=== PATIENT | male | born 1960 | race Caucasian/White ===

== ENCOUNTER → 2016-04-30 | Outpatient (REF) | payer BC | LOC: M SFHCLERA 08:27 | PROVIDERS: ATTEND Physician Assistant | DX: I10 Essential (primary) hypertension (principal); E78.2 Mixed hyperlipidemia; Z12.5 Encounter for screening for malignant neoplasm of prostate ==

== ENCOUNTER → 2016-05-01 | Outpatient (REF) | payer BC ==
[2016-05-01 11:17] LABS: MEAN CORPUSCULAR HEMOGLOBIN 34.3 pg (27.0-33.0); MEAN CORPUSCULAR HGB CONC 36.3 g/dl (32.0-36.5); MEAN CORPUSCULAR VOLUME 94.5 fl (80.0-96.0); RED CELL DISTRIBUTION WIDTH 11.5 % (11.5-14.5); WHITE BLOOD COUNT 5.3 K/mm3 (4.0-10.0)
[2016-05-01 11:39] LABS: ALBUMIN 4.3 GM/DL (3.2-5.2); ALBUMIN/GLOBULIN RATIO 1.72 (1.00-1.93); ALKALINE PHOSPHATASE 74 U/L (45-117); ALT/SGPT 53 U/L (12-78); ANION GAP 9 MEQ/L (8-16); AST/SGOT 59 U/L (15-37); BILIRUBIN,TOTAL 0.8 MG/DL (0.2-1.0); BLOOD UREA NITROGEN 12 MG/DL (7-18); CALCIUM LEVEL 9.4 MG/DL (8.5-10.1); CARBON DIOXIDE LEVEL 27 MEQ/L (21-32); CHLORIDE LEVEL 103 MEQ/L (98-107); CHOLESTEROL LEVEL 156 MG/DL (<200); CREATININE FOR GFR 0.86 MG/DL (0.70-1.30); GLOMERULAR FILTRATION RATE > 60.0 (>56); GLUCOSE, FASTING 94 MG/DL (70-105); POTASSIUM SERUM 4.4 MEQ/L (3.5-5.1); SODIUM LEVEL 139 MEQ/L (136-145); TOTAL PROTEIN 6.8 GM/DL (6.4-8.2); TRIGLYCERIDES LEVEL 349 MG/DL (<150)
== END ==
LOC: M SFHCLERA 07:18
PROVIDERS: ATTEND Physician Assistant
DX: Z12.5 Encounter for screening for malignant neoplasm of prostate (principal); I10 Essential (primary) hypertension; E78.2 Mixed hyperlipidemia
CPT/HCPCS: 80053; 80061; 85027; G0103

== ENCOUNTER → 2016-10-28 | Outpatient (REF) | payer BC ==
[2016-10-28 13:09] LABS: ALBUMIN/GLOBULIN RATIO 1.54 (1.00-1.93); ALKALINE PHOSPHATASE 56 U/L (45-117); ALT/SGPT 35 U/L (12-78); ANION GAP 8 MEQ/L (8-16); AST/SGOT 21 U/L (15-37); BILIRUBIN,TOTAL 0.5 MG/DL (0.2-1.0); BLOOD UREA NITROGEN 8 MG/DL (7-18); CALCIUM LEVEL 9.1 MG/DL (8.5-10.1); CARBON DIOXIDE LEVEL 28 MEQ/L (21-32); CHLORIDE LEVEL 104 MEQ/L (98-107); CHOLESTEROL LEVEL 127 MG/DL (<200); CREATININE FOR GFR 1.02 MG/DL (0.70-1.30); GLOMERULAR FILTRATION RATE > 60.0 (>56); GLUCOSE, FASTING 87 MG/DL (70-105); POTASSIUM SERUM 4.4 MEQ/L (3.5-5.1); SODIUM LEVEL 140 MEQ/L (136-145); TOTAL PROTEIN 6.6 GM/DL (6.4-8.2); TRIGLYCERIDES LEVEL 225 MG/DL (<150)
== END ==
LOC: M SFHCLERA 07:24
PROVIDERS: ATTEND Physician Assistant
DX: E78.2 Mixed hyperlipidemia (principal); Z12.5 Encounter for screening for malignant neoplasm of prostate
CPT/HCPCS: 80053; 80061; G0103

== ENCOUNTER → 2017-04-30 | Outpatient (REF) | payer BC ==
[2017-04-30 11:47] LABS: HEMATOCRIT 42.2 % (42.0-52.0); HEMOGLOBIN 14.9 g/dl (14.0-18.0); MEAN CORPUSCULAR HGB CONC 35.3 g/dl (32.0-36.5); MEAN CORPUSCULAR VOLUME 93.6 fl (80.0-96.0); PLATELET COUNT, AUTOMATED 284 10^3/uL (150-450); RED BLOOD COUNT 4.51 10^6/uL (4.30-6.10); RED CELL DISTRIBUTION WIDTH 11.8 % (11.5-14.5); WHITE BLOOD COUNT 5.8 10^3/uL (4.0-10.0)
[2017-04-30 12:04] LABS: ALBUMIN 4.3 GM/DL (3.2-5.2); ALBUMIN/GLOBULIN RATIO 1.54 (1.00-1.93); ALKALINE PHOSPHATASE 59 U/L (45-117); ALT/SGPT 42 U/L (12-78); ANION GAP 9 MEQ/L (8-16); AST/SGOT 37 U/L (7-37); BILIRUBIN,TOTAL 0.6 MG/DL (0.2-1.0); BLOOD UREA NITROGEN 13 MG/DL (7-18); CALCIUM LEVEL 9.3 MG/DL (8.5-10.1); CARBON DIOXIDE LEVEL 28 MEQ/L (21-32); CHLORIDE LEVEL 101 MEQ/L (98-107); CHOLESTEROL LEVEL 177 MG/DL (<200); CHOLESTEROL RISK RATIO 2.901 (<5); CREATININE FOR GFR 0.94 MG/DL (0.70-1.30); GLOMERULAR FILTRATION RATE > 60.0 (>56); GLUCOSE, FASTING 85 MG/DL (70-105); HDL CHOLESTEROL 61 MG/DL (>40); LDL CHOLESTEROL 63.8 MG/DL (<100); NON-HDL-C 116 MG/DL; POTASSIUM SERUM 4.7 MEQ/L (3.5-5.1); SODIUM LEVEL 138 MEQ/L (136-145); TOTAL PROTEIN 7.1 GM/DL (6.4-8.2); TRIGLYCERIDES LEVEL 261 MG/DL (<150)
== END ==
LOC: M SFHCLERA 07:43
DX: I10 Essential (primary) hypertension (principal); E78.2 Mixed hyperlipidemia
CPT/HCPCS: 80053

== ENCOUNTER → 2017-05-28 | Outpatient (CLI) | payer BC | LOC: M RAD 10:11 | DX: M25.559 Pain in unspecified hip (principal) ==

== ENCOUNTER → 2017-07-01 | Outpatient (REF) | payer BC ==
[2017-07-01 17:21] LABS: ETHYL ALCOHOL (ETHANOL) < 0.003 % (0.000-0.010)
== END ==
LOC: M SFHCLERA 10:52
DX: F10.20 Alcohol dependence, uncomplicated (principal)
CPT/HCPCS: G0480

== ENCOUNTER → 2017-07-08 | Outpatient (REF) | payer BC ==
[2017-07-08 17:35] LABS: ETHYL ALCOHOL (ETHANOL) 0.003 % (0.000-0.010)
== END ==
LOC: M SFHCLERA 11:05
DX: F10.20 Alcohol dependence, uncomplicated (principal)
CPT/HCPCS: G0480

== ENCOUNTER → 2017-08-01 | Outpatient (CLI) | payer BC | LOC: M RAD 08:49 | DX: M25.551 Pain in right hip (principal); M70.61 Trochanteric bursitis, right hip | CPT/HCPCS: 73721 ==

== ENCOUNTER → 2017-10-06 | Outpatient (CLI) | payer BC ==
[2017-10-06 12:10] LABS: BLOOD UREA NITROGEN 9 MG/DL (7-18)
[2017-10-06 12:10] LABS: CREATININE FOR GFR 0.89 MG/DL (0.70-1.30); GLOMERULAR FILTRATION RATE > 60.0 (>56)
== END ==
LOC: M LRY 07:44
DX: M54.5 Low back pain (principal); M54.16 Radiculopathy, lumbar region; M54.17 Radiculopathy, lumbosacral region
CPT/HCPCS: 82565

== ENCOUNTER → 2019-02-10 | Outpatient (REF) | payer BC ==
[2019-02-10 18:10] LABS: INR 0.9; PROTHROMBIN TIME 11.9 SECONDS (11.8-14.0)
== END ==
LOC: M LAB REF 17:22
PROVIDERS: ATTEND Internal Medicine
DX: F10.20 Alcohol dependence, uncomplicated (principal); R94.5 Abnormal results of liver function studies

== ENCOUNTER → 2019-08-10 | Outpatient (REF) | payer BC ==
[2019-08-10 18:01] LABS: ANISOCYTOSIS 1+; ATYPICAL LYMPH 4 % (0-5); BASOPHILS 4 % (0-1); EOSINOPHILS 3 % (0-3); HYPOCHROMASIA 1+; LYMPHOCYTES 11 % (16-44); METAMYELOCYTES 1 % (0-0); MONOCYTES 21 % (0-5); MYELOCYTES 1 % (0-0); NEUTROPHILS 55 % (28-66)
[2019-08-10 18:02] LABS: TEAR DROP CELLS 1+
[2019-08-10 18:03] LABS: PLATELET ESTIMATE NORMAL (NORMAL)
== END ==
LOC: M LAB REF 16:22
PROVIDERS: ATTEND Internal Medicine
DX: D72.9 Disorder of white blood cells, unspecified (principal)

== ENCOUNTER → 2019-08-15 | Outpatient (REF) | payer BC ==
[2019-08-15 13:36] LABS: FOLATE 21.7 NG/ML
== END ==
LOC: M LAB REF 12:12
PROVIDERS: ATTEND Internal Medicine
DX: D72.9 Disorder of white blood cells, unspecified (principal)

== ENCOUNTER → 2020-01-31 | Outpatient (REF) | payer BC | LOC: M LAB REF 12:27 | PROVIDERS: ATTEND Internal Medicine | DX: R79.89 Other specified abnormal findings of blood chemistry (principal) ==

== ENCOUNTER → 2020-02-08 | Outpatient (REF) | payer BC ==
[2020-02-08 17:45] LABS: FERRITIN 969 NG/ML (26-388)
[2020-02-08 18:06] LABS: HEPATITIS B SURFACE ANTIGEN NEGATIVE (NEGATIVE)
[2020-02-08 18:32] LABS: HEPATITIS C VIRUS ABY INDEX 0.1 INDEX (<0.8)
[2020-02-08 18:33] LABS: HEPATITIS B CORE ANTIBODY IGM NEGATIVE (NEGATIVE)
[2020-02-08 18:36] LABS: HEPATITIS A ANTIBODY IGM NEGATIVE (NEGATIVE)
[2020-02-10 13:07] LABS: ANTINUCLEAR ANTIBODIES DIRECT Negative (Negative); CERULOPLASMIN 18.2 mg/dL (16.0-31.0)
[2020-02-10 14:16] LABS: IRON (FE) 119 UG/DL (65-175); PERCENT SATURATION 29.8 % (19.7-50.0); TOTAL IRON BINDING CAPACITY 399 UG/DL (250-450)
== END ==
LOC: M LAB REF 16:44
PROVIDERS: ATTEND Internal Medicine
DX: K70.0 Alcoholic fatty liver (principal)

== ENCOUNTER → 2020-09-14 | Outpatient (REF) | payer BC ==
[2020-09-14 17:39] LABS: APPEARANCE, URINE CLEAR (CLEAR); BACTERIA, URINE AUTO NEGATIVE (NEGATIVE); BILIRUBIN, URINE AUTO NEGATIVE (NEGATIVE); BLOOD, URINE BLOOD NEGATIVE (NEGATIVE); COLOR, URINE STRAW (YELLOW); GLUCOSE, URINE (UA) AUTO NEGATIVE (NEGATIVE); KETONE, URINE AUTO NEGATIVE (NEGATIVE); LEUKOCYTE ESTERASE, URINE AUTO NEGATIVE (NEGATIVE); NITRITE, URINE AUTO NEGATIVE (NEGATIVE); PROTEIN, URINE AUTO NEGATIVE (NEGATIVE); RBC, URINE AUTO 0 /HPF (0-3); SPECIFIC GRAVITY URINE AUTO 1.004 (1.002-1.035); SQUAMOUS EPITHELIAL CELL UR AU 0 /HPF (0-6); UROBILINOGEN, URINE AUTO 0.2 mg/dL (0.0-2.0); WBC, URINE AUTO 0 /HPF (0-3)
[2020-09-14 17:58] LABS: ATYPICAL LYMPH 3 % (0-5); BASOPHILS 1 % (0-1); EOSINOPHILS 2 % (0-3); LYMPHOCYTES 14 % (16-44); MONOCYTES 6 % (0-5); NEUTROPHILS 70 % (28-66)
[2020-09-14 17:59] LABS: PLATELET ESTIMATE NORMAL (NORMAL)
== END ==
LOC: M LAB REF 16:21
PROVIDERS: ATTEND Internal Medicine
DX: D72.9 Disorder of white blood cells, unspecified (principal)

== ENCOUNTER → 2020-10-02 | Outpatient (REF) | payer BC ==
[2020-10-02 17:54] LABS: BASOPHILS 3 % (0-1); EOSINOPHILS 4 % (0-3); LYMPHOCYTES 13 % (16-44); MONOCYTES 4 % (0-5); NEUTROPHILS 76 % (28-66); PLATELET ESTIMATE NORMAL (NORMAL)
== END ==
LOC: M LAB REF 16:59
PROVIDERS: ATTEND Internal Medicine
DX: D72.89 Other specified disorders of white blood cells (principal)

== ENCOUNTER → 2021-02-26 | Outpatient (REF) | payer BC | LOC: M LAB REF 16:20 | PROVIDERS: ATTEND Physician Assistant Medical | DX: N39.0 Urinary tract infection, site not specified (principal) ==

== ENCOUNTER → 2021-10-07 | Outpatient (REF) | payer BC, OTHER ==
[~2021-10-07] MED LIST: ACET500T15 PO; ALEV220T22 PO; AMLO1TAB24 PO; DULO1CAP6 PO; FENO160T10 PO; FEXO-112 PO; FOLI1TAB11 PO; GABA-282 PO; KEPP250T5 PO; LISI40TA4 PO; MOME50SP2 NARES; MONT10TA97 PO; OMEP40CA5 PO; OXYB10TA23 PO; TAMS1CAP17 PO; THIA100TA PO; TIZA10TA PO; VITMTA PO
[2021-10-07 14:41] LABS: ATYPICAL LYMPH 3 % (0-5); BASOPHILS 1 % (0-1); LYMPHOCYTES 8 % (16-44); MONOCYTES 17 % (0-5); NEUTROPHILS 70 % (28-66)
[2021-10-07 14:42] LABS: BURR CELLS 1+; PLATELET ESTIMATE NORMAL (NORMAL)
== END ==
LOC: M LAB REF 13:09
PROVIDERS: ATTEND Internal Medicine
DX: D72.9 Disorder of white blood cells, unspecified (principal)

== ENCOUNTER 2021-10-08 09:58 | Inpatient (IN) | payer BC, OTHER ==
[~2021-10-08] VITALS: Ht 167.6 cm; Wt 73.6 kg
[~2021-10-08 09:58] MED LIST changes: -ACET500T15 PO; -ALEV220T22 PO; -AMLO1TAB24 PO; -DULO1CAP6 PO; -FENO160T10 PO; -FEXO-112 PO; -FOLI1TAB11 PO; +FOLIC ACID 1 MG TAB PO SCH; -GABA-282 PO; -KEPP250T5 PO; -LISI40TA4 PO; -MOME50SP2 NARES; -MONT10TA97 PO; +MULTIVITAMINS/MINERALS THERAP 1 TAB PO SCH; -OMEP40CA5 PO; +OXAZEPAM 10MG CAP PO SCH; -OXYB10TA23 PO; -TAMS1CAP17 PO; -THIA100TA PO; +THIAMINE 100 MG TAB PO SCH; -TIZA10TA PO; -VITMTA PO
[2021-10-08] MEDS ORDERED: LORazepam 2 MG TAB PO PRN ×2 (10:20→13:40)
[2021-10-08 10:33] LABS: VENOUS BASE EXCESS -2.4 (-2.0-2.0); VENOUS HCO3 23.1 MEQ/L (23.0-27.0); VENOUS PARTIAL PRESSURE CO2 42.7 mmHg (38.0-50.0); VENOUS PARTIAL PRESSURE O2 27.1 mmHg (30.0-50.0); VENOUS PH 7.351 UNITS (7.330-7.430); VENOUS STANDARD HCO3 21.3 MEQ/L; VENOUS TOTAL CO2 24.4 MEQ/L (24.0-28.0)
[2021-10-08] MEDS ORDERED: NS 1,000 ML IV SCH (10:35)
[2021-10-08 10:42] LABS: BASO % 0.5 % (0.0-1.0); EOS % 0.5 % (0.0-3.0); HEMATOCRIT 34.6 % (42.0-52.0); LYMPH # 0.4 10^3/uL (1.5-5.0); LYMPH % 4.9 % (24.0-44.0); MEAN CORPUSCULAR HEMOGLOBIN 32.9 pg (27.0-33.0); MEAN CORPUSCULAR HGB CONC 34.7 g/dl (32.0-36.5); MEAN CORPUSCULAR VOLUME 94.8 fl (80.0-96.0); MONO # 1.3 10^3/uL (0.0-0.8); MONO % 15.3 % (2.0-8.0); NEUTROPHILS # 6.8 10^3/uL (1.5-8.5); NEUTROPHILS % 77.9 % (36.0-66.0); PLATELET COUNT, AUTOMATED 178 10^3/uL (150-450); RED BLOOD COUNT 3.65 10^6/uL (4.30-6.10); WHITE BLOOD COUNT 8.7 10^3/uL (4.0-10.0)
[2021-10-08 11:13] LABS: RSV AMPLIFICATION NEGATIVE (NEGATIVE)
[2021-10-08 11:20] LABS: AMPHETAMINES LEVEL URINE NEGATIVE (NEGATIVE); BARBITURATES URINE NEGATIVE (NEGATIVE); BENZODIAZEPINES URINE NEGATIVE (NEGATIVE); CANNABINOIDS URINE NEGATIVE (NEGATIVE); COCAINE METABOLITE URINE NEGATIVE (NEGATIVE); METHADONE URINE NEGATIVE (NEGATIVE); OPIATES URINE NEGATIVE (NEGATIVE); PHENCYCLIDINE URINE NEGATIVE (NEGATIVE)
[2021-10-08 11:33] LABS: OSMOLALITY SERUM 323 MOSM/KG (275-295)
[2021-10-08 11:38] LABS: ALBUMIN 3.8 GM/DL (3.2-5.2); ALT/SGPT 35 U/L (12-78); BILIRUBIN,DIRECT 0.3 MG/DL (0.0-0.2); BILIRUBIN,TOTAL 0.7 MG/DL (0.2-1.0); BLOOD UREA NITROGEN 5 MG/DL (7-18); CARBON DIOXIDE LEVEL 22 MEQ/L (21-32); CHLORIDE LEVEL 89 MEQ/L (98-107); CREATININE FOR GFR 0.69 MG/DL (0.70-1.30); ETHYL ALCOHOL (ETHANOL) 0.304 % (0.000-0.010); GLOMERULAR FILTRATION RATE > 60.0 (>56); GLUCOSE, FASTING 89 MG/DL (70-100); MAGNESIUM LEVEL 2.4 MG/DL (1.8-2.4); PHOSPHORUS LEVEL 3.5 MG/DL (2.5-4.9); POTASSIUM SERUM 4.7 MEQ/L (3.5-5.1); SALICYLATE LEVEL < 1.7 MG/DL (5.0-30.0); SODIUM LEVEL 122 MEQ/L (136-145); TOTAL PROTEIN 6.7 GM/DL (6.4-8.2)
[2021-10-08 11:52] LABS: INR 1.01; PROTHROMBIN TIME 13.7 SECONDS (12.7-14.5)
[2021-10-08 11:53] LABS: CREATININE,RANDOM URINE 15.2 MG/DL
[2021-10-08] MEDS ORDERED: SODIUM CHLORIDE 1 GM TAB PO SCH (12:30)
[2021-10-08] MEDS ORDERED: DULO1CAP6 PO (13:49)
[2021-10-08] MEDS ORDERED: AMLO1TAB24 PO (13:49)
[2021-10-08] MEDS ORDERED: LISI40TA4 PO (13:49)
[2021-10-08] MEDS ORDERED: FENO160T10 PO (13:49)
[2021-10-08] MEDS ORDERED: GABA-282 PO ×2 (13:49)
[2021-10-08] MEDS ORDERED: TIZA10TA PO (13:49)
[2021-10-08] MEDS ORDERED: ACET500T15 PO (13:49)
[2021-10-08] MEDS ORDERED: OMEP40CA5 PO (13:49)
[2021-10-08] MEDS ORDERED: ALEV220T22 PO (13:49)
[2021-10-08] MEDS ORDERED: MONT10TA97 PO (13:49)
[2021-10-08] MEDS ORDERED: TAMS1CAP17 PO (13:49)
[2021-10-08] MEDS ORDERED: FEXO-112 PO (13:49)
[2021-10-08] MEDS ORDERED: VITMTA PO (13:49)
[2021-10-08] MEDS ORDERED: OXYB10TA23 PO (13:49)
[2021-10-08] MEDS ORDERED: MOME50SP2 NARES (13:49)
[2021-10-08] MEDS ORDERED: HOME MED LIST COMPLETE! XX SCH (13:55)
[2021-10-08 14:09] LABS: ACETAMINOPHEN LEVEL < 2.0 UG/ML (0.0-30.0)
[2021-10-08] MEDS ORDERED: OXAZEPAM 15MG CAP PO ONE (14:30)
[2021-10-08] MEDS ORDERED: TOLVAPTAN 7.5 MG HALF-TAB PO ONE (15:00)
[2021-10-08 17:00] LABS: BLOOD UREA NITROGEN 4 MG/DL (7-18); CALCIUM LEVEL 8.2 MG/DL (8.5-10.1); CARBON DIOXIDE LEVEL 21 MEQ/L (21-32); CHLORIDE LEVEL 93 MEQ/L (98-107); CREATININE FOR GFR 0.66 MG/DL (0.70-1.30); GLOMERULAR FILTRATION RATE > 60.0 (>56); GLUCOSE, FASTING 86 MG/DL (70-100); POTASSIUM SERUM 4.2 MEQ/L (3.5-5.1); SODIUM LEVEL 129 MEQ/L (136-145)
[2021-10-08 17:40] VITALS: BP 155/72
[2021-10-08 17:45] VITALS: BP 155/72
[2021-10-08] MEDS ORDERED: IBUPROFEN 400MG TAB PO ONE (18:25)
[2021-10-08 20:00] VITALS: BP 132/67
[2021-10-08] MEDS: DULoxetine 30MG CAPSULE (CYMBALTA) PO SCH (20:34)
[2021-10-08] MEDS: oxyBUTYnin *DITROPAN XL* 5 MG TABCR PO SCH (20:35)
[2021-10-08] MEDS: THIAMINE 100 MG TAB PO SCH (20:35)
[2021-10-08] MEDS: ACETAMINOPHEN 500 MG TAB PO SCH (20:35)
[2021-10-08] MEDS: GABAPENTIN 300 MG CAP PO SCH (20:35)
[2021-10-08 20:54] LABS: BILIRUBIN, URINE MANUAL NEGATIVE (NEGATIVE); GLUCOSE, URINE (UA) MANUAL NEGATIVE (NEGATIVE); KETONE, URINE MANUAL NEGATIVE (NEGATIVE); UROBILINOGEN, URINE MANUAL NORMAL (NORMAL)
[2021-10-08] MEDS ORDERED: tiZANidine 4 MG TAB PO SCH (21:00)
[2021-10-08 21:03] LABS: BACTERIA, URINE LARGE AMOUNT; MUCUS, URINE SMALL AMOUNT (NEGATIVE); SQUAMOUS EPITHELIAL CELL URINE SMALL AMOUNT /hpf (SMALL AMT)
[2021-10-08 21:04] LABS: HYALINE CAST, URINE NONE SEEN /lpf (0-1)
[2021-10-08 22:39] LABS: BLOOD UREA NITROGEN 5 MG/DL (7-18); CALCIUM LEVEL 8.5 MG/DL (8.5-10.1); CARBON DIOXIDE LEVEL 21 MEQ/L (21-32); CHLORIDE LEVEL 100 MEQ/L (98-107); CREATININE FOR GFR 0.72 MG/DL (0.70-1.30); GLOMERULAR FILTRATION RATE > 60.0 (>56); GLUCOSE, FASTING 107 MG/DL (70-100); POTASSIUM SERUM 3.7 MEQ/L (3.5-5.1); SODIUM LEVEL 133 MEQ/L (136-145)
[2021-10-09] VITALS (10 sets, daily range): BP systolic 125–157; BP diastolic 6–89
[2021-10-09] MEDS: OXAZEPAM 10MG CAP PO SCH ×3 (00:22→12:24)
[2021-10-09 05:00] LABS: BLOOD UREA NITROGEN 6 MG/DL (7-18); CALCIUM LEVEL 9.4 MG/DL (8.5-10.1); CARBON DIOXIDE LEVEL 22 MEQ/L (21-32); CHLORIDE LEVEL 102 MEQ/L (98-107); CREATININE FOR GFR 0.71 MG/DL (0.70-1.30); GLOMERULAR FILTRATION RATE > 60.0 (>56); GLUCOSE, FASTING 83 MG/DL (70-100); POTASSIUM SERUM 4.3 MEQ/L (3.5-5.1); SODIUM LEVEL 136 MEQ/L (136-145)
[2021-10-09 05:05] LABS: ALBUMIN 3.3 GM/DL (3.2-5.2); BILIRUBIN,DIRECT 0.3 MG/DL (0.0-0.2); BILIRUBIN,TOTAL 0.6 MG/DL (0.2-1.0); C REACTIVE PROTEIN QUANTITATIV 10.5 MG/DL (0.00-0.30); TOTAL PROTEIN 6.4 GM/DL (6.4-8.2)
[2021-10-09] MEDS ORDERED: D5W 1,000 ML IV ONE (07:20)
[2021-10-09] MEDS: MONTELUKAST 10 MG TAB PO SCH (08:14)
[2021-10-09] MEDS: lisinopriL 40MG TAB PO SCH (08:14)
[2021-10-09] MEDS: DULoxetine 30MG CAPSULE (CYMBALTA) PO SCH ×2 (08:14→20:00)
[2021-10-09] MEDS: FOLIC ACID 1 MG TAB PO SCH (08:14)
[2021-10-09] MEDS: THIAMINE 100 MG TAB PO SCH ×2 (08:14→20:01)
[2021-10-09] MEDS: GABAPENTIN 300 MG CAP PO SCH ×2 (08:14→20:00)
[2021-10-09] MEDS: TAMSULOSIN 0.4 MG CAP PO SCH (08:15)
[2021-10-09] MEDS: MULTIVITAMINS/MINERALS THERAP 1 TAB PO SCH (08:15)
[2021-10-09] MEDS ORDERED: amLODIPine 5 MG TAB PO SCH (09:00)
[2021-10-09 09:51] LABS: BLOOD UREA NITROGEN 6 MG/DL (7-18); CALCIUM LEVEL 9.3 MG/DL (8.5-10.1); CARBON DIOXIDE LEVEL 26 MEQ/L (21-32); CHLORIDE LEVEL 97 MEQ/L (98-107); CREATININE FOR GFR 0.86 MG/DL (0.70-1.30); GLOMERULAR FILTRATION RATE > 60.0 (>56); GLUCOSE, FASTING 151 MG/DL (70-100); POTASSIUM SERUM 3.5 MEQ/L (3.5-5.1); SODIUM LEVEL 133 MEQ/L (136-145)
[2021-10-09] MEDS ORDERED: ALPRAZolam 0.5 MG TAB PO ONE (10:45)
[2021-10-09 13:27] LABS: BLOOD UREA NITROGEN 6 MG/DL (7-18); CALCIUM LEVEL 9.5 MG/DL (8.5-10.1); CARBON DIOXIDE LEVEL 25 MEQ/L (21-32); CHLORIDE LEVEL 98 MEQ/L (98-107); CREATININE FOR GFR 0.75 MG/DL (0.70-1.30); GLOMERULAR FILTRATION RATE > 60.0 (>56); GLUCOSE, FASTING 145 MG/DL (70-100); POTASSIUM SERUM 4.3 MEQ/L (3.5-5.1); SODIUM LEVEL 132 MEQ/L (136-145)
[2021-10-09 17:20] LABS: BLOOD UREA NITROGEN 5 MG/DL (7-18); CALCIUM LEVEL 9.7 MG/DL (8.5-10.1); CARBON DIOXIDE LEVEL 25 MEQ/L (21-32); CHLORIDE LEVEL 97 MEQ/L (98-107); CREATININE FOR GFR 0.76 MG/DL (0.70-1.30); GLOMERULAR FILTRATION RATE > 60.0 (>56); GLUCOSE, FASTING 129 MG/DL (70-100); POTASSIUM SERUM 3.5 MEQ/L (3.5-5.1); SODIUM LEVEL 132 MEQ/L (136-145)
[2021-10-09] MEDS ORDERED: cloNIDine 0.1MG TABLET PO SCH (17:40)
[2021-10-09] MEDS: OXAZEPAM 15MG CAP PO SCH (17:56)
[2021-10-09] MEDS ORDERED: LORazepam 2 MG/ML VIAL IV ONE (18:30)
[2021-10-09] MEDS ORDERED: TOLVAPTAN 7.5 MG HALF-TAB PO ONE (19:00)
[2021-10-09] MEDS: oxyBUTYnin *DITROPAN XL* 5 MG TABCR PO SCH (20:00)
[2021-10-09] MEDS: amLODIPine 5 MG TAB PO SCH (20:01)
[2021-10-09] MEDS: ACETAMINOPHEN 500 MG TAB PO SCH (20:01)
[2021-10-09] MEDS ORDERED: diazePAM 10MG/2ML SYRINGE (J3360 PER 5MG) IV ONE (20:45)
[2021-10-09] MEDS ORDERED: LORazepam 2 MG TAB XX PRN (20:45)
[2021-10-09] MEDS ORDERED: LORazepam 2 MG/ML VIAL IV PRN (21:20)
[2021-10-09 21:30] LABS: BLOOD UREA NITROGEN 6 MG/DL (7-18); CALCIUM LEVEL 9.8 MG/DL (8.5-10.1); CARBON DIOXIDE LEVEL 25 MEQ/L (21-32); CHLORIDE LEVEL 99 MEQ/L (98-107); CREATININE FOR GFR 0.74 MG/DL (0.70-1.30); GLOMERULAR FILTRATION RATE > 60.0 (>56); GLUCOSE, FASTING 106 MG/DL (70-100); POTASSIUM SERUM 3.9 MEQ/L (3.5-5.1); SODIUM LEVEL 134 MEQ/L (136-145)
[2021-10-09] MEDS: SODIUM CHLORIDE 1 GM TAB PO SCH (21:47)
[2021-10-10] VITALS (9 sets, daily range): BP systolic 130–143; BP diastolic 82–90
[2021-10-10] MEDS: OXAZEPAM 15MG CAP PO SCH ×4 (00:06→17:22)
[2021-10-10 01:45] LABS: BLOOD UREA NITROGEN 7 MG/DL (7-18); CALCIUM LEVEL 9.2 MG/DL (8.5-10.1); CARBON DIOXIDE LEVEL 24 MEQ/L (21-32); CHLORIDE LEVEL 100 MEQ/L (98-107); CREATININE FOR GFR 0.75 MG/DL (0.70-1.30); GLOMERULAR FILTRATION RATE > 60.0 (>56); GLUCOSE, FASTING 100 MG/DL (70-100); POTASSIUM SERUM 3.8 MEQ/L (3.5-5.1); SODIUM LEVEL 133 MEQ/L (136-145)
[2021-10-10 05:59] LABS: BLOOD UREA NITROGEN 7 MG/DL (7-18); CALCIUM LEVEL 9.4 MG/DL (8.5-10.1); CARBON DIOXIDE LEVEL 24 MEQ/L (21-32); CHLORIDE LEVEL 101 MEQ/L (98-107); CREATININE FOR GFR 0.81 MG/DL (0.70-1.30); GLOMERULAR FILTRATION RATE > 60.0 (>56); GLUCOSE, FASTING 93 MG/DL (70-100); POTASSIUM SERUM 3.7 MEQ/L (3.5-5.1); SODIUM LEVEL 134 MEQ/L (136-145)
[2021-10-10] MEDS: DULoxetine 30MG CAPSULE (CYMBALTA) PO SCH ×2 (09:55→19:46)
[2021-10-10] MEDS: FOLIC ACID 1 MG TAB PO SCH (09:55)
[2021-10-10] MEDS: MONTELUKAST 10 MG TAB PO SCH (09:55)
[2021-10-10] MEDS: SODIUM CHLORIDE 1 GM TAB PO SCH ×3 (09:55→17:22)
[2021-10-10] MEDS: TAMSULOSIN 0.4 MG CAP PO SCH (09:55)
[2021-10-10] MEDS: MULTIVITAMINS/MINERALS THERAP 1 TAB PO SCH (09:55)
[2021-10-10] MEDS: lisinopriL 40MG TAB PO SCH (09:55)
[2021-10-10] MEDS: GABAPENTIN 300 MG CAP PO SCH ×2 (09:56→19:47)
[2021-10-10] MEDS: amLODIPine 5 MG TAB PO SCH ×2 (09:56→19:48)
[2021-10-10] MEDS: THIAMINE 100 MG TAB PO SCH ×2 (09:56→19:47)
[2021-10-10 10:11] LABS: BLOOD UREA NITROGEN 7 MG/DL (7-18); CALCIUM LEVEL 9.8 MG/DL (8.5-10.1); CARBON DIOXIDE LEVEL 24 MEQ/L (21-32); CHLORIDE LEVEL 100 MEQ/L (98-107); CREATININE FOR GFR 0.77 MG/DL (0.70-1.30); GLOMERULAR FILTRATION RATE > 60.0 (>56); GLUCOSE, FASTING 86 MG/DL (70-100); POTASSIUM SERUM 4.2 MEQ/L (3.5-5.1); SODIUM LEVEL 134 MEQ/L (136-145)
[2021-10-10] MEDS ORDERED: TOLVAPTAN 7.5 MG HALF-TAB PO ONE (11:00)
[2021-10-10] MEDS: AUGMENTIN 875 MG TAB PO SCH ×2 (12:25→19:46)
[2021-10-10] MEDS: LORazepam 2 MG TAB PO PRN ×2 (15:37→23:15)
[2021-10-10] MEDS: oxyBUTYnin *DITROPAN XL* 5 MG TABCR PO SCH (19:47)
[2021-10-10] MEDS: ACETAMINOPHEN 500 MG TAB PO SCH (19:49)
[2021-10-11] VITALS (10 sets, daily range): BP systolic 98–140; BP diastolic 72–86
[2021-10-11] MEDS: OXAZEPAM 15MG CAP PO SCH ×3 (00:13→11:37)
[2021-10-11 06:58] LABS: BASO # 0.1 10^3/uL (0.0-0.2); BASO % 0.5 % (0.0-1.0); EOS # 0.1 10^3/uL (0.0-0.5); EOS % 1.3 % (0.0-3.0); HEMOGLOBIN 12.5 g/dl (13.5-17.5); LYMPH # 0.4 10^3/uL (1.5-5.0); LYMPH % 4.8 % (24.0-44.0); MEAN CORPUSCULAR HEMOGLOBIN 33.6 pg (27.0-33.0); MEAN CORPUSCULAR HGB CONC 34.7 g/dl (32.0-36.5); MEAN CORPUSCULAR VOLUME 96.8 fl (80.0-96.0); MONO % 18.2 % (2.0-8.0); NEUTROPHILS # 6.8 10^3/uL (1.5-8.5); NEUTROPHILS % 74.4 % (36.0-66.0); PLATELET COUNT, AUTOMATED 204 10^3/uL (150-450); RED BLOOD COUNT 3.72 10^6/uL (4.30-6.10); WHITE BLOOD COUNT 9.2 10^3/uL (4.0-10.0)
[2021-10-11 07:24] LABS: BLOOD UREA NITROGEN 6 MG/DL (7-18); CALCIUM LEVEL 9.3 MG/DL (8.5-10.1); CARBON DIOXIDE LEVEL 23 MEQ/L (21-32); CHLORIDE LEVEL 101 MEQ/L (98-107); CREATININE FOR GFR 0.91 MG/DL (0.70-1.30); GLOMERULAR FILTRATION RATE > 60.0 (>56); GLUCOSE, FASTING 99 MG/DL (70-100); POTASSIUM SERUM 3.6 MEQ/L (3.5-5.1); SODIUM LEVEL 133 MEQ/L (136-145)
[2021-10-11 07:26] LABS: MONO # 1.7 10^3/uL (0.0-0.8)
[2021-10-11] MEDS: FOLIC ACID 1 MG TAB PO SCH (08:09)
[2021-10-11] MEDS: AUGMENTIN 875 MG TAB PO SCH (08:09)
[2021-10-11] MEDS: MULTIVITAMINS/MINERALS THERAP 1 TAB PO SCH (08:09)
[2021-10-11] MEDS: GABAPENTIN 300 MG CAP PO SCH (08:09)
[2021-10-11] MEDS: MONTELUKAST 10 MG TAB PO SCH (08:09)
[2021-10-11] MEDS: SODIUM CHLORIDE 1 GM TAB PO SCH ×2 (08:09→11:36)
[2021-10-11] MEDS: lisinopriL 40MG TAB PO SCH (08:10)
[2021-10-11] MEDS: amLODIPine 5 MG TAB PO SCH (08:10)
[2021-10-11] MEDS: TAMSULOSIN 0.4 MG CAP PO SCH (08:10)
[2021-10-11] MEDS ORDERED: DULoxetine 30MG CAPSULE (CYMBALTA) PO SCH ×2 (09:00→21:00)
[2021-10-11] MEDS: TOLVAPTAN 15 MG TAB (SAMSCA) PO ONE ×2 (12:14→13:32)
[2021-10-11] MEDS ORDERED: NS 1,000 ML IV ONE (14:45)
[2021-10-11] MEDS ORDERED: DEXTROSE 50% 50 ML SYRINGE IV PRN (14:45)
[2021-10-11] MEDS ORDERED: GLUCAGON INJ 1MG VIAL SC PRN (14:45)
[2021-10-11] MEDS ORDERED: GLUCOSE 4GM CHEW TABLET PO PRN (14:45)
[2021-10-11] MEDS: diazePAM 10MG/2ML SYRINGE (J3360 PER 5MG) IV SCH ×2 (14:52→20:18)
[2021-10-11] MEDS: levETIRAcetam INJection 1,000 MG in D5W 100 ML IV SCH (15:00)
[2021-10-11] MEDS: NS 1,000 ML IV SCH ×2 (16:42→21:20)
[2021-10-11] MEDS ORDERED: NALTREXONE 50 MG TAB PO SCH (21:00)
[2021-10-12] VITALS (9 sets, daily range): BP systolic 124–134; BP diastolic 78–98
[2021-10-12] MEDS: diazePAM 10MG/2ML SYRINGE (J3360 PER 5MG) IV SCH (02:55)
[2021-10-12] MEDS ORDERED: diazePAM 10MG/2ML SYRINGE (J3360 PER 5MG) IV ONE (04:10)
[2021-10-12] MEDS: levETIRAcetam INJection 1,000 MG in D5W 100 ML IV SCH (04:14)
[2021-10-12] MEDS: NS 1,000 ML IV SCH (07:34)
[2021-10-12 08:20] LABS: BASO # 0.1 10^3/uL (0.0-0.2); BASO % 0.8 % (0.0-1.0); EOS # 0.1 10^3/uL (0.0-0.5); EOS % 0.8 % (0.0-3.0); HEMATOCRIT 36.2 % (42.0-52.0); HEMOGLOBIN 12.3 g/dl (13.5-17.5); LYMPH # 0.5 10^3/uL (1.5-5.0); LYMPH % 6.7 % (24.0-44.0); MEAN CORPUSCULAR HEMOGLOBIN 32.5 pg (27.0-33.0); MEAN CORPUSCULAR VOLUME 95.5 fl (80.0-96.0); MONO # 1.4 10^3/uL (0.0-0.8); MONO % 18.7 % (2.0-8.0); NEUTROPHILS # 5.4 10^3/uL (1.5-8.5); NEUTROPHILS % 71.7 % (36.0-66.0); PLATELET COUNT, AUTOMATED 230 10^3/uL (150-450); RED BLOOD COUNT 3.79 10^6/uL (4.30-6.10); WHITE BLOOD COUNT 7.5 10^3/uL (4.0-10.0)
[2021-10-12] MEDS: THIAMINE 100 MG TAB PO SCH ×2 (08:24→21:11)
[2021-10-12] MEDS: MULTIVITAMINS/MINERALS THERAP 1 TAB PO SCH (08:24)
[2021-10-12] MEDS: diazePAM 5MG TABLET PO SCH ×3 (08:24→18:19)
[2021-10-12] MEDS: FOLIC ACID 1 MG TAB PO SCH (08:24)
[2021-10-12 08:46] LABS: ALBUMIN 3.1 GM/DL (3.2-5.2); ALT/SGPT 25 U/L (12-78); BILIRUBIN,TOTAL 0.6 MG/DL (0.2-1.0); BLOOD UREA NITROGEN 7 MG/DL (7-18); CALCIUM LEVEL 9.3 MG/DL (8.5-10.1); CARBON DIOXIDE LEVEL 18 MEQ/L (21-32); CHLORIDE LEVEL 118 MEQ/L (98-107); CREATININE FOR GFR 0.75 MG/DL (0.70-1.30); GLOMERULAR FILTRATION RATE > 60.0 (>56); GLUCOSE, FASTING 103 MG/DL (70-100); POTASSIUM SERUM 3.6 MEQ/L (3.5-5.1); SODIUM LEVEL 147 MEQ/L (136-145); TOTAL PROTEIN 6.3 GM/DL (6.4-8.2)
[2021-10-12] MEDS ORDERED: FOLIC ACID 1 MG in NS 50 ML IV SCH (09:00)
[2021-10-12] MEDS ORDERED: DULoxetine 30MG CAPSULE (CYMBALTA) PO SCH (09:00)
[2021-10-12] MEDS ORDERED: THIAMINE 200MG 2ML VIAL IV SCH (09:00)
[2021-10-12] MEDS: DULoxetine 30MG CAPSULE (CYMBALTA) PO SCH ×2 (09:23→21:11)
[2021-10-12] MEDS ORDERED: D5W 1,000 ML IV ONE (10:45)
[2021-10-12] MEDS ORDERED: D5W 1,000 ML IV SCH (10:45)
[2021-10-12 11:31] LABS: BLOOD UREA NITROGEN 8 MG/DL (7-18); CALCIUM LEVEL 9.4 MG/DL (8.5-10.1); CARBON DIOXIDE LEVEL 21 MEQ/L (21-32); CHLORIDE LEVEL 116 MEQ/L (98-107); CREATININE FOR GFR 0.82 MG/DL (0.70-1.30); GLOMERULAR FILTRATION RATE > 60.0 (>56); GLUCOSE, FASTING 116 MG/DL (70-100); POTASSIUM SERUM 3.2 MEQ/L (3.5-5.1); SODIUM LEVEL 145 MEQ/L (136-145)
[2021-10-12] MEDS: SODIUM BICARBONATE 325 MG TAB PO SCH ×2 (12:59→21:12)
[2021-10-12] MEDS: LACTULOSE 20 GM/30 ML SYRUP UD PO SCH ×2 (13:43→15:24)
[2021-10-12] MEDS ORDERED: POTASSIUM CHLORIDE 10MEQ SR TABLET PO ONE (14:00)
[2021-10-12 17:27] LABS: BLOOD UREA NITROGEN 7 MG/DL (7-18); CALCIUM LEVEL 9.1 MG/DL (8.5-10.1); CARBON DIOXIDE LEVEL 20 MEQ/L (21-32); CHLORIDE LEVEL 108 MEQ/L (98-107); CREATININE FOR GFR 0.71 MG/DL (0.70-1.30); GLOMERULAR FILTRATION RATE > 60.0 (>56); GLUCOSE, FASTING 91 MG/DL (70-100); POTASSIUM SERUM 3.8 MEQ/L (3.5-5.1); SODIUM LEVEL 138 MEQ/L (136-145)
[2021-10-12] MEDS: levETIRAcetam 250MG TABLET (KEPPRA) PO SCH (21:12)
[2021-10-12 23:27] LABS: BLOOD UREA NITROGEN 6 MG/DL (7-18); CALCIUM LEVEL 8.9 MG/DL (8.5-10.1); CARBON DIOXIDE LEVEL 24 MEQ/L (21-32); CHLORIDE LEVEL 103 MEQ/L (98-107); CREATININE FOR GFR 0.86 MG/DL (0.70-1.30); GLOMERULAR FILTRATION RATE > 60.0 (>56); GLUCOSE, FASTING 109 MG/DL (70-100); POTASSIUM SERUM 3.7 MEQ/L (3.5-5.1); SODIUM LEVEL 134 MEQ/L (136-145)
[2021-10-13] VITALS: BP 114/73
[2021-10-13] MEDS: diazePAM 5MG TABLET PO SCH ×4 (00:55→17:46)
[2021-10-13 04:00] VITALS: BP 127/85
[2021-10-13 06:50] LABS: BLOOD UREA NITROGEN 4 MG/DL (7-18); CALCIUM LEVEL 8.7 MG/DL (8.5-10.1); CARBON DIOXIDE LEVEL 23 MEQ/L (21-32); CHLORIDE LEVEL 105 MEQ/L (98-107); GLOMERULAR FILTRATION RATE > 60.0 (>56); GLUCOSE, FASTING 94 MG/DL (70-100); POTASSIUM SERUM 2.9 MEQ/L (3.5-5.1); SODIUM LEVEL 137 MEQ/L (136-145)
[2021-10-13 08:00] VITALS: BP 120/75
[2021-10-13] MEDS: SODIUM BICARBONATE 325 MG TAB PO SCH ×2 (09:26→20:56)
[2021-10-13] MEDS: POTASSIUM CHLORIDE 10MEQ SR TABLET PO SCH ×3 (09:26→12:20)
[2021-10-13] MEDS: levETIRAcetam 250MG TABLET (KEPPRA) PO SCH ×2 (09:26→20:56)
[2021-10-13] MEDS: THIAMINE 100 MG TAB PO SCH ×2 (09:27→20:57)
[2021-10-13] MEDS: FOLIC ACID 1 MG TAB PO SCH (09:27)
[2021-10-13] MEDS: DULoxetine 30MG CAPSULE (CYMBALTA) PO SCH ×2 (09:27→20:57)
[2021-10-13] MEDS: MULTIVITAMINS/MINERALS THERAP 1 TAB PO SCH (09:27)
[2021-10-13 11:44] LABS: BLOOD UREA NITROGEN 5 MG/DL (7-18); CALCIUM LEVEL 8.8 MG/DL (8.5-10.1); CARBON DIOXIDE LEVEL 24 MEQ/L (21-32); CHLORIDE LEVEL 105 MEQ/L (98-107); GLOMERULAR FILTRATION RATE > 60.0 (>56); GLUCOSE, FASTING 110 MG/DL (70-100); POTASSIUM SERUM 3.5 MEQ/L (3.5-5.1); SODIUM LEVEL 137 MEQ/L (136-145)
[2021-10-13 12:20] VITALS: BP 125/87
[2021-10-13 16:00] VITALS: BP 139/85
[2021-10-13 17:21] LABS: BLOOD UREA NITROGEN 6 MG/DL (7-18); CALCIUM LEVEL 8.7 MG/DL (8.5-10.1); CARBON DIOXIDE LEVEL 23 MEQ/L (21-32); CHLORIDE LEVEL 107 MEQ/L (98-107); CREATININE FOR GFR 0.82 MG/DL (0.70-1.30); GLOMERULAR FILTRATION RATE > 60.0 (>56); GLUCOSE, FASTING 114 MG/DL (70-100); SODIUM LEVEL 138 MEQ/L (136-145)
[2021-10-13 20:00] VITALS: BP 131/82
[2021-10-13 22:57] LABS: BLOOD UREA NITROGEN 6 MG/DL (7-18); CARBON DIOXIDE LEVEL 23 MEQ/L (21-32); CHLORIDE LEVEL 105 MEQ/L (98-107); CREATININE FOR GFR 0.77 MG/DL (0.70-1.30); GLOMERULAR FILTRATION RATE > 60.0 (>56); GLUCOSE, FASTING 109 MG/DL (70-100); POTASSIUM SERUM 3.9 MEQ/L (3.5-5.1); SODIUM LEVEL 134 MEQ/L (136-145)
[2021-10-14] MEDS: diazePAM 5MG TABLET PO SCH ×5 (01:02→23:09)
[2021-10-14 04:00] VITALS: BP 112/75
[2021-10-14 06:06] LABS: BLOOD UREA NITROGEN 6 MG/DL (7-18); CALCIUM LEVEL 9.4 MG/DL (8.5-10.1); CARBON DIOXIDE LEVEL 21 MEQ/L (21-32); CHLORIDE LEVEL 107 MEQ/L (98-107); GLOMERULAR FILTRATION RATE > 60.0 (>56); GLUCOSE, FASTING 96 MG/DL (70-100); POTASSIUM SERUM 3.9 MEQ/L (3.5-5.1); SODIUM LEVEL 136 MEQ/L (136-145)
[2021-10-14 07:28] VITALS: BP 119/79
[2021-10-14] MEDS ORDERED: FLEET ENEMA PR PRN (08:40)
[2021-10-14] MEDS ORDERED: SENOKOT S TAB PO PRN (08:40)
[2021-10-14] MEDS ORDERED: MOM 30ML SUSPENSION UDC PO PRN (08:40)
[2021-10-14] MEDS: levETIRAcetam 250MG TABLET (KEPPRA) PO SCH ×2 (09:38→20:01)
[2021-10-14] MEDS: SODIUM BICARBONATE 325 MG TAB PO SCH ×2 (09:38→20:01)
[2021-10-14] MEDS: DULoxetine 30MG CAPSULE (CYMBALTA) PO SCH ×2 (09:38→20:01)
[2021-10-14] MEDS: FOLIC ACID 1 MG TAB PO SCH (09:38)
[2021-10-14] MEDS: MULTIVITAMINS/MINERALS THERAP 1 TAB PO SCH (09:39)
[2021-10-14] MEDS: THIAMINE 100 MG TAB PO SCH ×2 (09:39→20:01)
[2021-10-14 09:47] LABS: PROLACTIN 9.2 NG/ML (2.1-17.7)
[2021-10-14 12:04] LABS: BLOOD UREA NITROGEN 8 MG/DL (7-18); CALCIUM LEVEL 10.4 MG/DL (8.5-10.1); CARBON DIOXIDE LEVEL 25 MEQ/L (21-32); CHLORIDE LEVEL 104 MEQ/L (98-107); CREATININE FOR GFR 0.92 MG/DL (0.70-1.30); GLOMERULAR FILTRATION RATE > 60.0 (>56); GLUCOSE, FASTING 133 MG/DL (70-100); SODIUM LEVEL 137 MEQ/L (136-145)
[2021-10-14 15:49] VITALS: BP 117/74
[2021-10-14 17:09] LABS: BLOOD UREA NITROGEN 9 MG/DL (7-18); CALCIUM LEVEL 9.6 MG/DL (8.5-10.1); CARBON DIOXIDE LEVEL 27 MEQ/L (21-32); CHLORIDE LEVEL 101 MEQ/L (98-107); CREATININE FOR GFR 0.89 MG/DL (0.70-1.30); GLOMERULAR FILTRATION RATE > 60.0 (>56); GLUCOSE, FASTING 110 MG/DL (70-100); POTASSIUM SERUM 3.4 MEQ/L (3.5-5.1); SODIUM LEVEL 135 MEQ/L (136-145)
[2021-10-14 20:05] VITALS: BP 123/81
[2021-10-15 00:22] LABS: BLOOD UREA NITROGEN 12 MG/DL (7-18); CALCIUM LEVEL 9.3 MG/DL (8.5-10.1); CARBON DIOXIDE LEVEL 24 MEQ/L (21-32); CHLORIDE LEVEL 101 MEQ/L (98-107); CREATININE FOR GFR 0.73 MG/DL (0.70-1.30); GLOMERULAR FILTRATION RATE > 60.0 (>56); GLUCOSE, FASTING 102 MG/DL (70-100); POTASSIUM SERUM 4.1 MEQ/L (3.5-5.1); SODIUM LEVEL 134 MEQ/L (136-145)
[2021-10-15 04:00] VITALS: BP 117/76
[2021-10-15] MEDS: diazePAM 5MG TABLET PO SCH (05:09)
[2021-10-15 05:55] LABS: BLOOD UREA NITROGEN 11 MG/DL (7-18); CALCIUM LEVEL 9.4 MG/DL (8.5-10.1); CARBON DIOXIDE LEVEL 24 MEQ/L (21-32); CHLORIDE LEVEL 101 MEQ/L (98-107); CREATININE FOR GFR 0.74 MG/DL (0.70-1.30); GLOMERULAR FILTRATION RATE > 60.0 (>56); GLUCOSE, FASTING 96 MG/DL (70-100); POTASSIUM SERUM 3.3 MEQ/L (3.5-5.1); SODIUM LEVEL 133 MEQ/L (136-145)
[2021-10-15] MEDS ORDERED: POTASSIUM CHLORIDE 10MEQ SR TABLET PO ONE (07:00)
[2021-10-15 07:37] VITALS: BP 113/75
[2021-10-15] MEDS ORDERED: LORazepam 2 MG TAB PO PRN (08:15)
[2021-10-15] MEDS: FOLIC ACID 1 MG TAB PO SCH (08:42)
[2021-10-15] MEDS: THIAMINE 100 MG TAB PO SCH ×2 (08:42→20:01)
[2021-10-15] MEDS: levETIRAcetam 250MG TABLET (KEPPRA) PO SCH ×2 (08:42→20:01)
[2021-10-15] MEDS: DULoxetine 30MG CAPSULE (CYMBALTA) PO SCH ×2 (08:42→20:01)
[2021-10-15] MEDS: MULTIVITAMINS/MINERALS THERAP 1 TAB PO SCH (08:42)
[2021-10-15] MEDS: SODIUM BICARBONATE 325 MG TAB PO SCH ×2 (08:42→20:01)
[2021-10-15] MEDS: NS 1,000 ML IV SCH ×2 (08:48→20:01)
[2021-10-15 14:00] VITALS: BP 112/72
[2021-10-15 15:30] VITALS: BP 118/71
[2021-10-15 20:00] VITALS: BP 129/80
[2021-10-15] MEDS ORDERED: diazePAM 5MG TABLET PO SCH (21:00)
[2021-10-15] MEDS ORDERED: CEPACOL LOZENGE PO PRN (21:40)
[2021-10-16 04:00] VITALS: BP 128/73
[2021-10-16 05:04] LABS: HEMATOCRIT 33.2 % (42.0-52.0); HEMOGLOBIN 11.3 g/dl (13.5-17.5); MEAN CORPUSCULAR HEMOGLOBIN 32.2 pg (27.0-33.0); MEAN CORPUSCULAR VOLUME 94.6 fl (80.0-96.0); PLATELET COUNT, AUTOMATED 340 10^3/uL (150-450); RED BLOOD COUNT 3.51 10^6/uL (4.30-6.10)
[2021-10-16 05:38] LABS: ALT/SGPT 30 U/L (12-78); BLOOD UREA NITROGEN 9 MG/DL (7-18); CALCIUM LEVEL 8.9 MG/DL (8.5-10.1); CARBON DIOXIDE LEVEL 24 MEQ/L (21-32); CHLORIDE LEVEL 105 MEQ/L (98-107); CREATININE FOR GFR 0.66 MG/DL (0.70-1.30); GLOMERULAR FILTRATION RATE > 60.0 (>56); GLUCOSE, FASTING 94 MG/DL (70-100); POTASSIUM SERUM 3.6 MEQ/L (3.5-5.1); SODIUM LEVEL 137 MEQ/L (136-145); TOTAL PROTEIN 6.1 GM/DL (6.4-8.2)
[2021-10-16] MEDS ORDERED: KEPP250T5 PO (07:26)
[2021-10-16] MEDS ORDERED: FOLI1TAB11 PO (07:26)
[2021-10-16] MEDS ORDERED: VITMTA PO (07:26)
[2021-10-16] MEDS ORDERED: THIA100TA PO (07:26)
[2021-10-16 07:56] VITALS: BP 123/74
[2021-10-16 08:30] VITALS: BP 123/74
[2021-10-16] MEDS ORDERED: diazePAM 5MG TABLET PO SCH (09:00)
[2021-10-16] MEDS: NS 1,000 ML IV SCH (09:15)
[2021-10-16] MEDS: DULoxetine 30MG CAPSULE (CYMBALTA) PO SCH (09:15)
[2021-10-16] MEDS: THIAMINE 100 MG TAB PO SCH (09:15)
[2021-10-16] MEDS: SODIUM BICARBONATE 325 MG TAB PO SCH (09:15)
[2021-10-16] MEDS: MULTIVITAMINS/MINERALS THERAP 1 TAB PO SCH (09:15)
[2021-10-16] MEDS: levETIRAcetam 250MG TABLET (KEPPRA) PO SCH (09:16)
[2021-10-16] MEDS: FOLIC ACID 1 MG TAB PO SCH (09:16)
== END 2021-10-16 13:22 | disposition home health service (06) | DRG 425 ==
LOC: EDBD 09:58 → M ED 09:58 → M ED INP 13:33 → ENRESERV 15:56 → M PCU 17:40 → M MSPAV 10-09 18:14 → M PCU 10-11 15:54
PROVIDERS: ADMIT General Practice; ATTEND Internal Medicine
DX: E87.1 Hypo-osmolality and hyponatremia (principal); G93.41 Metabolic encephalopathy; R56.9 Unspecified convulsions; E83.51 Hypocalcemia; K76.0 Fatty (change of) liver, not elsewhere classified; K70.9 Alcoholic liver disease, unspecified; F32.A Depression, unspecified; I10 Essential (primary) hypertension; J45.909 Unspecified asthma, uncomplicated; J98.11 Atelectasis; K21.9 Gastro-esophageal reflux disease without esophagitis; N39.0 Urinary tract infection, site not specified; N40.0 Benign prostatic hyperplasia without lower urinary tract symptoms; R26.0 Ataxic gait; R29.6 Repeated falls; R94.5 Abnormal results of liver function studies; F10.239 Alcohol dependence with withdrawal, unspecified; K59.00 Constipation, unspecified; Z79.899 Other long term (current) drug therapy; K64.8 Other hemorrhoids; E78.5 Hyperlipidemia, unspecified; E87.0 Hyperosmolality and hypernatremia

== ENCOUNTER → 2021-12-10 | Outpatient (REF) | payer OTHER ==
[~2021-12-10] MED LIST changes: +ACET500T15 PO; +ALEV220T22 PO; +AMLO1TAB24 PO; +DULO1CAP6 PO; +FENO160T10 PO; +FEXO-112 PO; +FOLI1TAB11 PO; -FOLIC ACID 1 MG TAB PO SCH; +GABA-282 PO; +KEPP250T5 PO; +LISI40TA4 PO; +MOME50SP2 NARES; +MONT10TA97 PO; -MULTIVITAMINS/MINERALS THERAP 1 TAB PO SCH; +OMEP40CA5 PO; -OXAZEPAM 10MG CAP PO SCH; +OXYB10TA23 PO; +TAMS1CAP17 PO; +THIA100TA PO; -THIAMINE 100 MG TAB PO SCH; +TIZA10TA PO; +VITMTA PO
[2021-12-10 17:32] LABS: INR 0.94
== END ==
LOC: M LAB REF 16:19
PROVIDERS: ATTEND Internal Medicine
DX: F10.20 Alcohol dependence, uncomplicated (principal); F10.239 Alcohol dependence with withdrawal, unspecified

== ENCOUNTER → 2021-12-24 | Outpatient (CLI) | payer OTHER ==
[2021-12-24 14:31] LABS: BASO # 0.1 10^3/uL (0.0-0.2); BASO % 1.8 % (0.0-1.0); EOS # 0.2 10^3/uL (0.0-0.5); EOS % 2.4 % (0.0-3.0); HEMATOCRIT 37.1 % (42.0-52.0); HEMOGLOBIN 12.4 g/dl (13.5-17.5); LYMPH # 0.7 10^3/uL (1.5-5.0); LYMPH % 10.9 % (24.0-44.0); MEAN CORPUSCULAR HEMOGLOBIN 32.6 pg (27.0-33.0); MEAN CORPUSCULAR HGB CONC 33.4 g/dl (32.0-36.5); MEAN CORPUSCULAR VOLUME 97.6 fl (80.0-96.0); MONO # 0.8 10^3/uL (0.0-0.8); MONO % 11.4 % (2.0-8.0); NEUTROPHILS # 4.9 10^3/uL (1.5-8.5); NEUTROPHILS % 73.2 % (36.0-66.0); PLATELET COUNT, AUTOMATED 186 10^3/uL (150-450); WHITE BLOOD COUNT 6.7 10^3/uL (4.0-10.0)
[2021-12-24 15:28] LABS: ALBUMIN 4.2 GM/DL (3.2-5.2); ALT/SGPT 24 U/L (12-78); BILIRUBIN,TOTAL 0.3 MG/DL (0.2-1.0); BLOOD UREA NITROGEN 5 MG/DL (7-18); CALCIUM LEVEL 9.5 MG/DL (8.5-10.1); CARBON DIOXIDE LEVEL 27 MEQ/L (21-32); CHLORIDE LEVEL 97 MEQ/L (98-107); CREATININE FOR GFR 0.69 MG/DL (0.70-1.30); FREE THYROXINE INDEX 2.1 % (1.4-3.8); GLOMERULAR FILTRATION RATE > 60.0 (>56); GLUCOSE, FASTING 79 MG/DL (70-100); POTASSIUM SERUM 4.2 MEQ/L (3.5-5.1); RHEUMATOID FACTOR QUANT 55.8 IU/ML (<15.0); SODIUM LEVEL 130 MEQ/L (136-145); T UPTAKE 32 % (33-40); THYROXINE (T4) 6.6 UG/DL (4.5-12.0); TOTAL PROTEIN 7.2 GM/DL (6.4-8.2)
[2021-12-24 15:42] LABS: VITAMIN B12 LEVEL 363 PG/ML
[2021-12-24 15:43] LABS: FOLATE > 24.0 NG/ML
[2021-12-24 15:47] LABS: ERYTHROCYTE SEDIMENTATION RATE 17 mm/hr (0-20)
[2021-12-27 16:08] LABS: ANTINUCLEAR ANTIBODIES DIRECT Negative (Negative); VITAMIN B1 LEVEL WHOLE BLOOD 147.9 nmol/L (66.5-200.0); VITAMIN B6,PYRIDOXAL PHOSPHATE 62.9 ug/L (3.4-65.2); VITAMIN E(ALPHA TOCOPHEROL) 10.5 mg/L (7.0-25.1); VITAMIN E(GAMMA TOCOPHEROL) 0.7 mg/L (0.5-5.5)
== END ==
LOC: M PLALAB 11:13
PROVIDERS: ATTEND Psychiatry & Neurology Neurology
DX: D51.9 Vitamin B12 deficiency anemia, unspecified (principal); Z13.39 Encounter for screening examination for other mental health and behavioral disorders

== ENCOUNTER → 2022-05-12 | Outpatient (CLI) | payer OTHER ==
[2022-05-12 17:07] LABS: PERCENT SATURATION 9.9 % (19.7-50.0)
== END ==
LOC: M WUC 14:36
PROVIDERS: ATTEND Internal Medicine
DX: R05.9 Cough, unspecified (principal); G60.9 Hereditary and idiopathic neuropathy, unspecified

== ENCOUNTER → 2022-06-12 | Outpatient (REF) | payer OTHER, BC ==
[2022-06-13 15:39] LABS: APPEARANCE, URINE HAZY (CLEAR); BACTERIA, URINE AUTO 2+ (NEGATIVE); BILIRUBIN, URINE AUTO NEGATIVE (NEGATIVE); BLOOD, URINE BLOOD 3+ (NEGATIVE); COLOR, URINE RED (YELLOW); GLUCOSE, URINE (UA) AUTO NEGATIVE (NEGATIVE); KETONE, URINE AUTO NEGATIVE (NEGATIVE); LEUKOCYTE ESTERASE, URINE AUTO 3+ (NEGATIVE); NITRITE, URINE AUTO NEGATIVE (NEGATIVE); PROTEIN, URINE AUTO 1+ mg/dL (NEGATIVE); RBC, URINE AUTO 42 /HPF (0-3); SPECIFIC GRAVITY URINE AUTO 1.003 (1.002-1.035); SQUAMOUS EPITHELIAL CELL UR AU 0 /HPF (0-6); UROBILINOGEN, URINE AUTO 0.2 mg/dL (0.0-2.0); WBC, URINE AUTO 39 /HPF (0-3)
== END ==
LOC: M SMT 17:18
PROVIDERS: ATTEND Urology
DX: Z12.5 Encounter for screening for malignant neoplasm of prostate (principal)

== ENCOUNTER → 2022-07-01 | Outpatient (CLI) | payer OTHER | LOC: M PLALAB 14:08 | PROVIDERS: ATTEND Urology | DX: R97.20 Elevated prostate specific antigen [PSA] (principal) ==

== ENCOUNTER → 2022-08-08 | Outpatient (REF) | payer OTHER ==
[2022-08-08 17:31] LABS: PERCENT SATURATION 15.2 % (19.7-50.0)
[2022-08-08 17:33] LABS: FERRITIN 369.1 NG/ML (10.5-307.3)
== END ==
LOC: M LAB REF 16:20
PROVIDERS: ATTEND Internal Medicine
DX: G62.1 Alcoholic polyneuropathy (principal); R29.6 Repeated falls

== ENCOUNTER → 2022-09-05 | Outpatient (REF) | payer OTHER ==
[2022-09-05 19:04] LABS: APPEARANCE, URINE CLEAR (CLEAR); BACTERIA, URINE AUTO 1+ (NEGATIVE); BILIRUBIN, URINE AUTO NEGATIVE (NEGATIVE); BLOOD, URINE BLOOD 1+ (NEGATIVE); COLOR, URINE STRAW (YELLOW); GLUCOSE, URINE (UA) AUTO NEGATIVE (NEGATIVE); KETONE, URINE AUTO NEGATIVE (NEGATIVE); LEUKOCYTE ESTERASE, URINE AUTO 1+ (NEGATIVE); NITRITE, URINE AUTO NEGATIVE (NEGATIVE); PROTEIN, URINE AUTO NEGATIVE (NEGATIVE); RBC, URINE AUTO 0 /HPF (0-3); SPECIFIC GRAVITY URINE AUTO 1.003 (1.002-1.035); SQUAMOUS EPITHELIAL CELL UR AU 0 /HPF (0-6); UROBILINOGEN, URINE AUTO 0.2 mg/dL (0.0-2.0); WBC, URINE AUTO 1 /HPF (0-3)
== END ==
LOC: M SMT 17:16
PROVIDERS: ATTEND Urology
DX: N39.0 Urinary tract infection, site not specified (principal)

== ENCOUNTER 2022-09-20 07:53 | Inpatient (IN) | payer OTHER ==
[~2022-09-20] VITALS: Ht 167.6 cm; Wt 78.4 kg
[2022-09-20] MEDS ORDERED: lisinopriL 40MG TAB PO ONE (09:00)
[2022-09-20] MEDS ORDERED: amLODIPine 5 MG TAB PO ONE (09:00)
[2022-09-20 09:25] LABS: ETHYL ALCOHOL (ETHANOL) 0.006 % (0.000-0.010)
[2022-09-20 09:28] LABS: OSMOLALITY SERUM 240 MOSM/KG (275-295)
[2022-09-20 09:34] LABS: BASO % 0.3 % (0.0-1.0); HEMATOCRIT 33.6 % (42.0-52.0); HEMOGLOBIN 12.4 g/dl (13.5-17.5); LYMPH # 0.2 10^3/uL (1.5-5.0); MEAN CORPUSCULAR HEMOGLOBIN 32.6 pg (27.0-33.0); MEAN CORPUSCULAR VOLUME 88.4 fl (80.0-96.0); MONO # 0.8 10^3/uL (0.0-0.8); MONO % 11.5 % (2.0-8.0); NEUTROPHILS # 5.6 10^3/uL (1.5-8.5); NEUTROPHILS % 84.7 % (36.0-66.0); PLATELET COUNT, AUTOMATED 181 10^3/uL (150-450); WHITE BLOOD COUNT 6.6 10^3/uL (4.0-10.0)
[2022-09-20 09:35] LABS: ALBUMIN 4.8 G/DL (3.2-5.2); ALKALINE PHOSPHATASE 69 U/L (46-116); ALT/SGPT 55 U/L (7.0-40); AST/SGOT 196 U/L (<34); BILIRUBIN,DIRECT 0.5 MG/DL (<0.4); BILIRUBIN,TOTAL 0.9 MG/DL (0.3-1.2); BLOOD UREA NITROGEN 13 MG/DL (9-23); CARBON DIOXIDE LEVEL 18 MMOL/L (20-31); CHLORIDE LEVEL 81 MMOL/L (98-107); CREATININE FOR GFR 0.93 MG/DL (0.70-1.30); GLOMERULAR FILTRATION RATE > 60.0 (>49); GLUCOSE, FASTING 71 MG/DL (74-106); POTASSIUM SERUM 4.1 MMOL/L (3.5-5.1); SODIUM LEVEL 113 MMOL/L (136-145); THYROID STIMULATING HORMONE 2.591 uIU/ML (0.55-4.78); TOTAL PROTEIN 7.3 G/DL (5.7-8.2)
[2022-09-20] MEDS ORDERED: NS 1,000 ML IV SCH (09:35)
[2022-09-20 09:37] LABS: MEAN CORPUSCULAR HGB CONC 36.9 g/dl (32.0-36.5)
[2022-09-20 10:00] LABS: MAGNESIUM LEVEL 2.1 MG/DL (1.8-2.4)
[2022-09-20] MEDS ORDERED: LORazepam 2 MG TAB PO PRN (10:00)
[2022-09-20 10:21] LABS: FREE T4 0.88 NG/DL (0.89-1.76)
[2022-09-20 10:53] LABS: CREATININE,RANDOM URINE 56.6 MG/DL
[2022-09-20] MEDS ORDERED: FOLI1TAB11 PO (11:59)
[2022-09-20] MEDS ORDERED: TIZA10TA PO (12:01)
[2022-09-20] MEDS ORDERED: FERR324T2 PO (12:02)
[2022-09-20] MEDS ORDERED: HOME MED LIST COMPLETE! XX SCH (12:05)
[2022-09-20 12:20] VITALS: BP 160/90; TEMP 98.2; O2SAT 96
[2022-09-20] MEDS: MULTIVITAMINS/MINERALS THERAP 1 TAB PO SCH (12:22)
[2022-09-20] MEDS: THIAMINE 100 MG TAB PO SCH ×2 (12:22→20:20)
[2022-09-20] MEDS: FOLIC ACID 1MG TAB PO SCH (12:23)
[2022-09-20] MEDS: OXAZEPAM 10MG CAP PO SCH ×2 (12:23→17:13)
[2022-09-20 12:59] LABS: BLOOD UREA NITROGEN 14 MG/DL (9-23); CALCIUM LEVEL 9.9 MG/DL (8.3-10.6); CARBON DIOXIDE LEVEL 17 MMOL/L (20-31); CHLORIDE LEVEL 82 MMOL/L (98-107); CREATININE FOR GFR 0.82 MG/DL (0.70-1.30); GLOMERULAR FILTRATION RATE > 60.0 (>49); GLUCOSE, FASTING 68 MG/DL (74-106); POTASSIUM SERUM 4.1 MMOL/L (3.5-5.1); SODIUM LEVEL 113 MMOL/L (136-145)
[2022-09-20] MEDS: NS 1,000 ML IV SCH ×2 (13:45→23:05)
[2022-09-20 15:40] VITALS: BP 133/92; TEMP 98.4; O2SAT 99
[2022-09-20 17:06] LABS: INR 1.01; PARTIAL THROMBOPLASTIN TIME 28.1 SECONDS (24.8-34.2); PROTHROMBIN TIME 13.5 SECONDS (12.5-14.5)
[2022-09-20 17:12] LABS: BLOOD UREA NITROGEN 13 MG/DL (9-23); CALCIUM LEVEL 8.9 MG/DL (8.3-10.6); CARBON DIOXIDE LEVEL 20 MMOL/L (20-31); CHLORIDE LEVEL 82 MMOL/L (98-107); CREATININE FOR GFR 0.78 MG/DL (0.70-1.30); GLOMERULAR FILTRATION RATE > 60.0 (>49); GLUCOSE, FASTING 122 MG/DL (74-106); POTASSIUM SERUM 3.6 MMOL/L (3.5-5.1); SODIUM LEVEL 114 MMOL/L (136-145)
[2022-09-20] MEDS: SODIUM BICARBONATE 325 MG TAB PO SCH ×2 (17:13→20:20)
[2022-09-20] MEDS ORDERED: POTASSIUM CHLORIDE 10MEQ SR TABLET PO ONE (17:55)
[2022-09-20 20:00] VITALS: BP 158/78; TEMP 97.7; O2SAT 93
[2022-09-20] MEDS: LORazepam 2 MG TAB PO PRN ×2 (20:20→23:03)
[2022-09-20] MEDS: DULoxetine 30MG CAPSULE (CYMBALTA) PO SCH (20:20)
[2022-09-20] MEDS ORDERED: THIAMINE 100 MG TAB PO SCH (21:00)
[2022-09-20 21:22] LABS: BLOOD UREA NITROGEN 12 MG/DL (9-23); CALCIUM LEVEL 8.7 MG/DL (8.3-10.6); CARBON DIOXIDE LEVEL 19 MMOL/L (20-31); CHLORIDE LEVEL 86 MMOL/L (98-107); CREATININE FOR GFR 0.78 MG/DL (0.70-1.30); GLOMERULAR FILTRATION RATE > 60.0 (>49); GLUCOSE, FASTING 89 MG/DL (74-106); SODIUM LEVEL 115 MMOL/L (136-145)
[2022-09-20] MEDS ORDERED: LORazepam 2 MG/ML 1ML VIAL IV ONE (22:00)
[2022-09-20] MEDS: OXAZEPAM 15MG CAP PO SCH (23:04)
[2022-09-20] MEDS: **hydrALAZINE HCL** 25 MG TAB PO SCH (23:51)
[2022-09-21] VITALS (7 sets, daily range): BP systolic 120–153; BP diastolic 60–84; TEMP 96.8–98.5; O2SAT 95–100
[2022-09-21] MEDS: LORazepam 2 MG TAB PO PRN ×6 (00:10→23:52)
[2022-09-21 00:45] LABS: BLOOD UREA NITROGEN 11 MG/DL (9-23); CALCIUM LEVEL 8.4 MG/DL (8.3-10.6); CARBON DIOXIDE LEVEL 19 MMOL/L (20-31); CHLORIDE LEVEL 88 MMOL/L (98-107); CREATININE FOR GFR 0.79 MG/DL (0.70-1.30); GLOMERULAR FILTRATION RATE > 60.0 (>49); GLUCOSE, FASTING 92 MG/DL (74-106); POTASSIUM SERUM 3.8 MMOL/L (3.5-5.1); SODIUM LEVEL 116 MMOL/L (136-145)
[2022-09-21 05:09] LABS: SODIUM,RANDOM URINE 42 MMOL/L
[2022-09-21 05:17] LABS: OSMOLALITY URINE 164 MOSM/KG (50-1400)
[2022-09-21 05:41] LABS: BASO % 0.6 % (0.0-1.0); EOS % 0.4 % (0.0-3.0); HEMOGLOBIN 11.1 g/dl (13.5-17.5); LYMPH # 0.5 10^3/uL (1.5-5.0); LYMPH % 10.6 % (24.0-44.0); MEAN CORPUSCULAR HEMOGLOBIN 32.2 pg (27.0-33.0); MEAN CORPUSCULAR HGB CONC 35.8 g/dl (32.0-36.5); MEAN CORPUSCULAR VOLUME 89.9 fl (80.0-96.0); MONO # 1.1 10^3/uL (0.0-0.8); MONO % 21.8 % (2.0-8.0); NEUTROPHILS # 3.2 10^3/uL (1.5-8.5); NEUTROPHILS % 66.2 % (36.0-66.0); PLATELET COUNT, AUTOMATED 156 10^3/uL (150-450); RED BLOOD COUNT 3.45 10^6/uL (4.30-6.10); WHITE BLOOD COUNT 4.8 10^3/uL (4.0-10.0)
[2022-09-21] MEDS: **hydrALAZINE HCL** 25 MG TAB PO SCH ×5 (06:00→23:51)
[2022-09-21 06:11] LABS: BLOOD UREA NITROGEN 9 MG/DL (9-23); CALCIUM LEVEL 8.5 MG/DL (8.3-10.6); CARBON DIOXIDE LEVEL 21 MMOL/L (20-31); CHLORIDE LEVEL 91 MMOL/L (98-107); CREATININE FOR GFR 0.74 MG/DL (0.70-1.30); GLOMERULAR FILTRATION RATE > 60.0 (>49); GLUCOSE, FASTING 84 MG/DL (74-106); MAGNESIUM LEVEL 1.9 MG/DL (1.8-2.4); PHOSPHORUS LEVEL 2.2 MG/DL (2.4-5.1); POTASSIUM SERUM 3.4 MMOL/L (3.5-5.1); SODIUM LEVEL 121 MMOL/L (136-145)
[2022-09-21] MEDS: OXAZEPAM 15MG CAP PO SCH ×4 (06:29→23:52)
[2022-09-21] MEDS ORDERED: POTASSIUM CHLORIDE 10MEQ SR TABLET PO ONE (07:20)
[2022-09-21] MEDS: OMEPRAZOLE 20MG CAP PO SCH (08:06)
[2022-09-21] MEDS: SODIUM BICARBONATE 325 MG TAB PO SCH ×2 (08:06→20:45)
[2022-09-21] MEDS: MONTELUKAST 10 MG TAB PO SCH (08:07)
[2022-09-21] MEDS: FOLIC ACID 1MG TAB PO SCH (08:07)
[2022-09-21] MEDS: THIAMINE 100 MG TAB PO SCH ×2 (08:07→20:45)
[2022-09-21] MEDS: MULTIVITAMINS/MINERALS THERAP 1 TAB PO SCH (08:07)
[2022-09-21 08:54] LABS: BLOOD UREA NITROGEN 8 MG/DL (9-23); CALCIUM LEVEL 8.4 MG/DL (8.3-10.6); CARBON DIOXIDE LEVEL 22 MMOL/L (20-31); CHLORIDE LEVEL 91 MMOL/L (98-107); CREATININE FOR GFR 0.74 MG/DL (0.70-1.30); GLOMERULAR FILTRATION RATE > 60.0 (>49); GLUCOSE, FASTING 88 MG/DL (74-106); POTASSIUM SERUM 3.5 MMOL/L (3.5-5.1); SODIUM LEVEL 121 MMOL/L (136-145)
[2022-09-21] MEDS ORDERED: FOLIC ACID 1MG TAB PO SCH (09:00)
[2022-09-21] MEDS ORDERED: amLODIPine 5 MG TAB PO SCH (09:00)
[2022-09-21] MEDS ORDERED: MULTIVITAMINS/MINERALS THERAP 1 TAB PO SCH (09:00)
[2022-09-21] MEDS: NEUTRA-PHOS 1.5 GM PACKET PO SCH ×2 (12:05→17:47)
[2022-09-21 13:02] LABS: BLOOD UREA NITROGEN 8 MG/DL (9-23); CALCIUM LEVEL 8.8 MG/DL (8.3-10.6); CARBON DIOXIDE LEVEL 22 MMOL/L (20-31); CHLORIDE LEVEL 92 MMOL/L (98-107); CREATININE FOR GFR 0.71 MG/DL (0.70-1.30); GLOMERULAR FILTRATION RATE > 60.0 (>49); GLUCOSE, FASTING 86 MG/DL (74-106); POTASSIUM SERUM 3.8 MMOL/L (3.5-5.1); SODIUM LEVEL 124 MMOL/L (136-145)
[2022-09-21 19:11] LABS: BLOOD UREA NITROGEN 7 MG/DL (9-23); CARBON DIOXIDE LEVEL 19 MMOL/L (20-31); CHLORIDE LEVEL 94 MMOL/L (98-107); CREATININE FOR GFR 0.66 MG/DL (0.70-1.30); GLOMERULAR FILTRATION RATE > 60.0 (>49); GLUCOSE, FASTING 93 MG/DL (74-106); SODIUM LEVEL 124 MMOL/L (136-145)
[2022-09-21] MEDS: DULoxetine 30MG CAPSULE (CYMBALTA) PO SCH (20:45)
[2022-09-22 00:44] LABS: BLOOD UREA NITROGEN 6 MG/DL (9-23); CALCIUM LEVEL 8.9 MG/DL (8.3-10.6); CARBON DIOXIDE LEVEL 20 MMOL/L (20-31); CHLORIDE LEVEL 94 MMOL/L (98-107); CREATININE FOR GFR 0.67 MG/DL (0.70-1.30); GLOMERULAR FILTRATION RATE > 60.0 (>49); GLUCOSE, FASTING 99 MG/DL (74-106); POTASSIUM SERUM 3.3 MMOL/L (3.5-5.1); SODIUM LEVEL 123 MMOL/L (136-145)
[2022-09-22 04:05] VITALS: BP 149/82; TEMP 98.2; O2SAT 100
[2022-09-22 04:38] LABS: SODIUM,RANDOM URINE 84 MMOL/L
[2022-09-22 04:46] LABS: OSMOLALITY URINE 304 MOSM/KG (50-1400)
[2022-09-22 05:43] LABS: BASO # 0.1 10^3/uL (0.0-0.2); BASO % 0.8 % (0.0-1.0); EOS # 0.1 10^3/uL (0.0-0.5); EOS % 1.6 % (0.0-3.0); HEMATOCRIT 33.4 % (42.0-52.0); HEMOGLOBIN 11.9 g/dl (13.5-17.5); LYMPH # 0.8 10^3/uL (1.5-5.0); LYMPH % 11.9 % (24.0-44.0); MEAN CORPUSCULAR HEMOGLOBIN 32.2 pg (27.0-33.0); MEAN CORPUSCULAR HGB CONC 35.6 g/dl (32.0-36.5); MEAN CORPUSCULAR VOLUME 90.5 fl (80.0-96.0); MONO # 1.5 10^3/uL (0.0-0.8); MONO % 23.4 % (2.0-8.0); NEUTROPHILS # 3.9 10^3/uL (1.5-8.5); PLATELET COUNT, AUTOMATED 200 10^3/uL (150-450); RED BLOOD COUNT 3.69 10^6/uL (4.30-6.10); WHITE BLOOD COUNT 6.3 10^3/uL (4.0-10.0)
[2022-09-22 05:57] LABS: IRON (FE) 61 UG/DL (65-175); PERCENT SATURATION 18.2 % (19.7-50.0); TOTAL IRON BINDING CAPACITY 335 UG/DL (250-425)
[2022-09-22 05:59] LABS: FOLATE 23.2 NG/ML (>5.4)
[2022-09-22 06:00] LABS: FERRITIN 1420.3 NG/ML (10.5-307.3); VITAMIN B12 LEVEL 497 PG/ML (211-911)
[2022-09-22] MEDS: **hydrALAZINE HCL** 25 MG TAB PO SCH ×3 (06:00→17:14)
[2022-09-22 06:03] LABS: BLOOD UREA NITROGEN 6 MG/DL (9-23); CARBON DIOXIDE LEVEL 22 MMOL/L (20-31); CHLORIDE LEVEL 94 MMOL/L (98-107); CREATININE FOR GFR 0.68 MG/DL (0.70-1.30); GLOMERULAR FILTRATION RATE > 60.0 (>49); GLUCOSE, FASTING 86 MG/DL (74-106); MAGNESIUM LEVEL 1.9 MG/DL (1.8-2.4); PHOSPHORUS LEVEL 3.1 MG/DL (2.4-5.1); POTASSIUM SERUM 3.5 MMOL/L (3.5-5.1); SODIUM LEVEL 125 MMOL/L (136-145)
[2022-09-22] MEDS: OXAZEPAM 15MG CAP PO SCH ×3 (06:16→17:14)
[2022-09-22] MEDS: LORazepam 2 MG TAB PO PRN (07:06)
[2022-09-22 07:48] VITALS: BP 128/78; TEMP 97; O2SAT 99
[2022-09-22 08:00] VITALS: BP 128/78
[2022-09-22] MEDS ORDERED: POTASSIUM CHLORIDE 10MEQ SR TABLET PO ONE ×2 (08:00→09:00)
[2022-09-22] MEDS: NEUTRA-PHOS 1.5 GM PACKET PO SCH ×3 (08:57→17:14)
[2022-09-22] MEDS: FOLIC ACID 1MG TAB PO SCH (08:57)
[2022-09-22] MEDS: SODIUM BICARBONATE 325 MG TAB PO SCH ×3 (08:57→20:15)
[2022-09-22] MEDS: MULTIVITAMINS/MINERALS THERAP 1 TAB PO SCH (08:57)
[2022-09-22] MEDS: THIAMINE 100 MG TAB PO SCH ×2 (08:58→20:15)
[2022-09-22] MEDS: OMEPRAZOLE 20MG CAP PO SCH (08:58)
[2022-09-22] MEDS: MONTELUKAST 10 MG TAB PO SCH (08:58)
[2022-09-22] MEDS: ENOXAPARIN 40MG/0.4ML SYRINGE (J1650 PER 10MG) SC SCH (08:59)
[2022-09-22 11:34] VITALS: BP 133/74; TEMP 96.6; O2SAT 100
[2022-09-22 12:26] LABS: BLOOD UREA NITROGEN 8 MG/DL (9-23); CARBON DIOXIDE LEVEL 22 MMOL/L (20-31); CHLORIDE LEVEL 94 MMOL/L (98-107); CREATININE FOR GFR 0.69 MG/DL (0.70-1.30); GLOMERULAR FILTRATION RATE > 60.0 (>49); GLUCOSE, FASTING 101 MG/DL (74-106); POTASSIUM SERUM 3.7 MMOL/L (3.5-5.1); SODIUM LEVEL 126 MMOL/L (136-145)
[2022-09-22 15:56] VITALS: BP 143/86; TEMP 96.5; O2SAT 100
[2022-09-22 18:56] LABS: BLOOD UREA NITROGEN 8 MG/DL (9-23); CALCIUM LEVEL 9.7 MG/DL (8.3-10.6); CARBON DIOXIDE LEVEL 20 MMOL/L (20-31); CHLORIDE LEVEL 96 MMOL/L (98-107); CREATININE FOR GFR 0.68 MG/DL (0.70-1.30); GLOMERULAR FILTRATION RATE > 60.0 (>49); GLUCOSE, FASTING 93 MG/DL (74-106); POTASSIUM SERUM 4.2 MMOL/L (3.5-5.1); SODIUM LEVEL 127 MMOL/L (136-145)
[2022-09-22 19:25] VITALS: BP 150/78; TEMP 96.6; O2SAT 100
[2022-09-22] MEDS: DULoxetine 30MG CAPSULE (CYMBALTA) PO SCH (20:15)
[2022-09-23] VITALS (7 sets, daily range): BP systolic 126–174; BP diastolic 75–96; TEMP 96.9–97.8; O2SAT 99–100
[2022-09-23] MEDS: OXAZEPAM 15MG CAP PO SCH ×4 (00:43→20:32)
[2022-09-23] MEDS: **hydrALAZINE HCL** 25 MG TAB PO SCH ×5 (00:44→23:17)
[2022-09-23 01:12] LABS: BLOOD UREA NITROGEN 10 MG/DL (9-23); CALCIUM LEVEL 9.8 MG/DL (8.3-10.6); CARBON DIOXIDE LEVEL 20 MMOL/L (20-31); CHLORIDE LEVEL 96 MMOL/L (98-107); CREATININE FOR GFR 0.66 MG/DL (0.70-1.30); GLOMERULAR FILTRATION RATE > 60.0 (>49); GLUCOSE, FASTING 94 MG/DL (74-106); POTASSIUM SERUM 4.1 MMOL/L (3.5-5.1); SODIUM LEVEL 129 MMOL/L (136-145)
[2022-09-23] MEDS ORDERED: RAMELTEON 8 MG TAB (ROZEREM) PO PRN (01:45)
[2022-09-23 06:36] LABS: BASO % 0.5 % (0.0-1.0); EOS # 0.1 10^3/uL (0.0-0.5); EOS % 1.2 % (0.0-3.0); HEMATOCRIT 40.9 % (42.0-52.0); LYMPH # 0.7 10^3/uL (1.5-5.0); LYMPH % 9.6 % (24.0-44.0); MEAN CORPUSCULAR HGB CONC 34.5 g/dl (32.0-36.5); MONO # 1.3 10^3/uL (0.0-0.8); MONO % 17.3 % (2.0-8.0); NEUTROPHILS # 5.2 10^3/uL (1.5-8.5); NEUTROPHILS % 71.1 % (36.0-66.0); PLATELET COUNT, AUTOMATED 252 10^3/uL (150-450); WHITE BLOOD COUNT 7.4 10^3/uL (4.0-10.0)
[2022-09-23 06:42] LABS: HEMOGLOBIN 14.1 g/dl (13.5-17.5)
[2022-09-23 06:53] LABS: BLOOD UREA NITROGEN 11 MG/DL (9-23); CALCIUM LEVEL 10.3 MG/DL (8.3-10.6); CARBON DIOXIDE LEVEL 20 MMOL/L (20-31); CHLORIDE LEVEL 96 MMOL/L (98-107); CREATININE FOR GFR 0.58 MG/DL (0.70-1.30); GLOMERULAR FILTRATION RATE > 60.0 (>49); GLUCOSE, FASTING 90 MG/DL (74-106); MAGNESIUM LEVEL 2.1 MG/DL (1.8-2.4); POTASSIUM SERUM 4.3 MMOL/L (3.5-5.1); SODIUM LEVEL 128 MMOL/L (136-145)
[2022-09-23] MEDS: ENOXAPARIN 40MG/0.4ML SYRINGE (J1650 PER 10MG) SC SCH (09:05)
[2022-09-23] MEDS: NEUTRA-PHOS 1.5 GM PACKET PO SCH ×3 (09:05→17:37)
[2022-09-23] MEDS: MONTELUKAST 10 MG TAB PO SCH (09:06)
[2022-09-23] MEDS: SODIUM BICARBONATE 325 MG TAB PO SCH (09:06)
[2022-09-23] MEDS: MULTIVITAMINS/MINERALS THERAP 1 TAB PO SCH (09:06)
[2022-09-23] MEDS: THIAMINE 100 MG TAB PO SCH (09:06)
[2022-09-23] MEDS: OMEPRAZOLE 20MG CAP PO SCH (09:06)
[2022-09-23] MEDS: FOLIC ACID 1MG TAB PO SCH (09:06)
[2022-09-23 11:52] LABS: BLOOD UREA NITROGEN 12 MG/DL (9-23); CALCIUM LEVEL 10.2 MG/DL (8.3-10.6); CARBON DIOXIDE LEVEL 22 MMOL/L (20-31); CHLORIDE LEVEL 96 MMOL/L (98-107); CREATININE FOR GFR 0.57 MG/DL (0.70-1.30); GLOMERULAR FILTRATION RATE > 60.0 (>49); GLUCOSE, FASTING 143 MG/DL (74-106); SODIUM LEVEL 129 MMOL/L (136-145)
[2022-09-23] MEDS: NS 1,000 ML IV SCH ×2 (12:12→23:16)
[2022-09-23 17:57] LABS: BLOOD UREA NITROGEN 13 MG/DL (9-23); CALCIUM LEVEL 9.9 MG/DL (8.3-10.6); CARBON DIOXIDE LEVEL 22 MMOL/L (20-31); CHLORIDE LEVEL 96 MMOL/L (98-107); CREATININE FOR GFR 0.57 MG/DL (0.70-1.30); GLOMERULAR FILTRATION RATE > 60.0 (>49); GLUCOSE, FASTING 101 MG/DL (74-106); POTASSIUM SERUM 3.9 MMOL/L (3.5-5.1); SODIUM LEVEL 129 MMOL/L (136-145)
[2022-09-23] MEDS: DULoxetine 30MG CAPSULE (CYMBALTA) PO SCH (20:32)
[2022-09-24 00:21] LABS: BLOOD UREA NITROGEN 13 MG/DL (9-23); CALCIUM LEVEL 9.4 MG/DL (8.3-10.6); CARBON DIOXIDE LEVEL 23 MMOL/L (20-31); CHLORIDE LEVEL 98 MMOL/L (98-107); CREATININE FOR GFR 0.69 MG/DL (0.70-1.30); GLOMERULAR FILTRATION RATE > 60.0 (>49); GLUCOSE, FASTING 98 MG/DL (74-106); POTASSIUM SERUM 3.8 MMOL/L (3.5-5.1); SODIUM LEVEL 129 MMOL/L (136-145)
[2022-09-24 04:00] VITALS: BP 139/79; TEMP 97.5; O2SAT 100
[2022-09-24] MEDS: **hydrALAZINE HCL** 25 MG TAB PO SCH ×4 (05:15→23:58)
[2022-09-24] MEDS: OXAZEPAM 15MG CAP PO SCH ×2 (05:18→17:15)
[2022-09-24 06:38] LABS: BASO % 0.5 % (0.0-1.0); EOS # 0.2 10^3/uL (0.0-0.5); EOS % 1.7 % (0.0-3.0); HEMATOCRIT 33.6 % (42.0-52.0); HEMOGLOBIN 11.9 g/dl (13.5-17.5); LYMPH # 0.6 10^3/uL (1.5-5.0); LYMPH % 6.5 % (24.0-44.0); MEAN CORPUSCULAR HEMOGLOBIN 32.8 pg (27.0-33.0); MEAN CORPUSCULAR HGB CONC 35.4 g/dl (32.0-36.5); MEAN CORPUSCULAR VOLUME 92.6 fl (80.0-96.0); MONO % 21.5 % (2.0-8.0); NEUTROPHILS % 69.3 % (36.0-66.0); PLATELET COUNT, AUTOMATED 255 10^3/uL (150-450); RED BLOOD COUNT 3.63 10^6/uL (4.30-6.10); WHITE BLOOD COUNT 8.7 10^3/uL (4.0-10.0)
[2022-09-24 06:51] LABS: BLOOD UREA NITROGEN 12 MG/DL (9-23); CALCIUM LEVEL 9.3 MG/DL (8.3-10.6); CARBON DIOXIDE LEVEL 22 MMOL/L (20-31); CHLORIDE LEVEL 98 MMOL/L (98-107); CREATININE FOR GFR 0.65 MG/DL (0.70-1.30); GLOMERULAR FILTRATION RATE > 60.0 (>49); GLUCOSE, FASTING 87 MG/DL (74-106); MAGNESIUM LEVEL 1.7 MG/DL (1.8-2.4); PHOSPHORUS LEVEL 4.4 MG/DL (2.4-5.1); POTASSIUM SERUM 3.7 MMOL/L (3.5-5.1); SODIUM LEVEL 130 MMOL/L (136-145)
[2022-09-24 07:32] LABS: MONO # 1.9 10^3/uL (0.0-0.8)
[2022-09-24 07:50] VITALS: BP 145/82; TEMP 97.4; O2SAT 100
[2022-09-24] MEDS ORDERED: MAGNESIUM OXIDE 400MG TAB (MAG-OX) PO ONE (08:55)
[2022-09-24] MEDS: NEUTRA-PHOS 1.5 GM PACKET PO SCH ×3 (09:11→17:15)
[2022-09-24] MEDS: ENOXAPARIN 40MG/0.4ML SYRINGE (J1650 PER 10MG) SC SCH (09:11)
[2022-09-24] MEDS: FOLIC ACID 1MG TAB PO SCH (09:12)
[2022-09-24] MEDS: MULTIVITAMINS/MINERALS THERAP 1 TAB PO SCH (09:12)
[2022-09-24] MEDS: OMEPRAZOLE 20MG CAP PO SCH (09:12)
[2022-09-24] MEDS: THIAMINE 100 MG TAB PO SCH (09:12)
[2022-09-24] MEDS: MONTELUKAST 10 MG TAB PO SCH (09:13)
[2022-09-24] MEDS: CYANOCOBALAMIN 500 MCG TAB PO SCH (09:13)
[2022-09-24 12:00] VITALS: TEMP 98.2; O2SAT 98
[2022-09-24] MEDS: NS 1,000 ML IV SCH (13:17)
[2022-09-24 15:35] VITALS: BP 130/74; TEMP 97; O2SAT 100
[2022-09-24] MEDS ORDERED: PROHANCE 279.3MG/ML 15ML VIAL As Ordered ONE (17:52)
[2022-09-24] MEDS ORDERED: OXAZEPAM 15MG CAP PO SCH (18:00)
[2022-09-24 20:00] VITALS: BP 148/77; TEMP 97.7; O2SAT 99
[2022-09-24] MEDS: DULoxetine 30MG CAPSULE (CYMBALTA) PO SCH (20:33)
[2022-09-24] MEDS: ACETAMINOPHEN TAB 650MG DOSE (2X325MG) PO PRN (21:10)
[2022-09-24 23:59] VITALS: BP 148/86; TEMP 96.9; O2SAT 99
[2022-09-25] MEDS: NS 1,000 ML IV SCH (03:32)
[2022-09-25 04:00] VITALS: BP 128/79; TEMP 96.9; O2SAT 97
[2022-09-25] MEDS: **hydrALAZINE HCL** 25 MG TAB PO SCH ×4 (04:44→23:41)
[2022-09-25] MEDS: OXAZEPAM 15MG CAP PO SCH (05:09)
[2022-09-25 05:10] LABS: BASO % 0.7 % (0.0-1.0); EOS # 0.2 10^3/uL (0.0-0.5); EOS % 3.2 % (0.0-3.0); HEMATOCRIT 30.7 % (42.0-52.0); HEMOGLOBIN 10.9 g/dl (13.5-17.5); LYMPH # 0.6 10^3/uL (1.5-5.0); LYMPH % 10.6 % (24.0-44.0); MEAN CORPUSCULAR HEMOGLOBIN 32.6 pg (27.0-33.0); MEAN CORPUSCULAR HGB CONC 35.5 g/dl (32.0-36.5); MEAN CORPUSCULAR VOLUME 91.9 fl (80.0-96.0); MONO % 28.5 % (2.0-8.0); NEUTROPHILS # 3.1 10^3/uL (1.5-8.5); NEUTROPHILS % 56.3 % (36.0-66.0); PLATELET COUNT, AUTOMATED 254 10^3/uL (150-450); RED BLOOD COUNT 3.34 10^6/uL (4.30-6.10); WHITE BLOOD COUNT 5.5 10^3/uL (4.0-10.0)
[2022-09-25 05:33] LABS: MONO # 1.6 10^3/uL (0.0-0.8)
[2022-09-25 05:35] LABS: BLOOD UREA NITROGEN 11 MG/DL (9-23); CALCIUM LEVEL 8.8 MG/DL (8.3-10.6); CARBON DIOXIDE LEVEL 21 MMOL/L (20-31); CHLORIDE LEVEL 100 MMOL/L (98-107); CREATININE FOR GFR 0.55 MG/DL (0.70-1.30); GLOMERULAR FILTRATION RATE > 60.0 (>49); GLUCOSE, FASTING 85 MG/DL (74-106); MAGNESIUM LEVEL 1.6 MG/DL (1.8-2.4); PHOSPHORUS LEVEL 4.2 MG/DL (2.4-5.1); POTASSIUM SERUM 3.2 MMOL/L (3.5-5.1); SODIUM LEVEL 130 MMOL/L (136-145)
[2022-09-25] MEDS ORDERED: POTASSIUM CHLORIDE 10MEQ SR TABLET PO ONE ×2 (05:55→09:00)
[2022-09-25] MEDS: MAG SULF 1GM/100ML (MAG RUN) 1 GM in IV 1 EA IV SCH ×2 (06:06→09:33)
[2022-09-25 07:24] VITALS: BP 134/79; TEMP 96.8; O2SAT 98
[2022-09-25] MEDS ORDERED: KCL 10MEQ/100ML SWI (KRUN) 10 MEQ in IV 1 EA IV SCH (08:00)
[2022-09-25] MEDS ORDERED: OXAZEPAM 15MG CAP PO SCH (09:00)
[2022-09-25] MEDS: MULTIVITAMINS/MINERALS THERAP 1 TAB PO SCH (09:25)
[2022-09-25] MEDS: CYANOCOBALAMIN 500 MCG TAB PO SCH (09:25)
[2022-09-25] MEDS: MONTELUKAST 10 MG TAB PO SCH (09:25)
[2022-09-25] MEDS: OMEPRAZOLE 20MG CAP PO SCH (09:26)
[2022-09-25] MEDS: FOLIC ACID 1MG TAB PO SCH (09:26)
[2022-09-25] MEDS: THIAMINE 100 MG TAB PO SCH (09:26)
[2022-09-25] MEDS: ENOXAPARIN 40MG/0.4ML SYRINGE (J1650 PER 10MG) SC SCH (09:27)
[2022-09-25] MEDS: NEUTRA-PHOS 1.5 GM PACKET PO SCH ×2 (09:34→12:52)
[2022-09-25] MEDS ORDERED: SODIUM CHLORIDE 1 GM TAB PO ONE (11:25)
[2022-09-25 12:01] VITALS: BP 138/75; TEMP 96.6; O2SAT 99
[2022-09-25 16:22] VITALS: BP 155/77; TEMP 97.3; O2SAT 100
[2022-09-25 19:02] LABS: BLOOD UREA NITROGEN 9 MG/DL (9-23); CARBON DIOXIDE LEVEL 23 MMOL/L (20-31); CHLORIDE LEVEL 100 MMOL/L (98-107); CREATININE FOR GFR 0.59 MG/DL (0.70-1.30); GLOMERULAR FILTRATION RATE > 60.0 (>49); GLUCOSE, FASTING 97 MG/DL (74-106); SODIUM LEVEL 131 MMOL/L (136-145)
[2022-09-25 20:00] VITALS: BP 136/83; TEMP 97.5; O2SAT 98
[2022-09-25] MEDS: DULoxetine 30MG CAPSULE (CYMBALTA) PO SCH (20:23)
[2022-09-25] MEDS ORDERED: SODIUM CHLORIDE 1 GM TAB PO SCH (21:00)
[2022-09-25] MEDS: ACETAMINOPHEN TAB 650MG DOSE (2X325MG) PO PRN (23:59)
[2022-09-26 00:41] LABS: BLOOD UREA NITROGEN 9 MG/DL (9-23); CALCIUM LEVEL 9.2 MG/DL (8.3-10.6); CARBON DIOXIDE LEVEL 21 MMOL/L (20-31); CHLORIDE LEVEL 100 MMOL/L (98-107); CREATININE FOR GFR 0.56 MG/DL (0.70-1.30); GLOMERULAR FILTRATION RATE > 60.0 (>49); GLUCOSE, FASTING 105 MG/DL (74-106); POTASSIUM SERUM 3.7 MMOL/L (3.5-5.1); SODIUM LEVEL 129 MMOL/L (136-145)
[2022-09-26 04:00] VITALS: BP 138/75; TEMP 96.1; O2SAT 99
[2022-09-26] MEDS: **hydrALAZINE HCL** 25 MG TAB PO SCH (05:02)
[2022-09-26 05:22] LABS: BASO # 0.1 10^3/uL (0.0-0.2); BASO % 0.9 % (0.0-1.0); EOS # 0.2 10^3/uL (0.0-0.5); EOS % 4.4 % (0.0-3.0); HEMATOCRIT 32.9 % (42.0-52.0); HEMOGLOBIN 11.6 g/dl (13.5-17.5); LYMPH # 0.7 10^3/uL (1.5-5.0); LYMPH % 13.1 % (24.0-44.0); MEAN CORPUSCULAR HEMOGLOBIN 32.4 pg (27.0-33.0); MEAN CORPUSCULAR HGB CONC 35.3 g/dl (32.0-36.5); MEAN CORPUSCULAR VOLUME 91.9 fl (80.0-96.0); MONO # 1.3 10^3/uL (0.0-0.8); MONO % 24.5 % (2.0-8.0); NEUTROPHILS % 56.3 % (36.0-66.0); PLATELET COUNT, AUTOMATED 312 10^3/uL (150-450); RED BLOOD COUNT 3.58 10^6/uL (4.30-6.10); WHITE BLOOD COUNT 5.3 10^3/uL (4.0-10.0)
[2022-09-26 05:48] LABS: ALBUMIN 3.5 G/DL (3.2-5.2); ALKALINE PHOSPHATASE 62 U/L (46-116); ALT/SGPT 48 U/L (7.0-40); AST/SGOT 33 U/L (<34); BILIRUBIN,DIRECT 0.3 MG/DL (<0.4); BILIRUBIN,TOTAL 0.5 MG/DL (0.3-1.2); BLOOD UREA NITROGEN 8 MG/DL (9-23); CALCIUM LEVEL 9.6 MG/DL (8.3-10.6); CARBON DIOXIDE LEVEL 21 MMOL/L (20-31); CHLORIDE LEVEL 99 MMOL/L (98-107); CREATININE FOR GFR 0.59 MG/DL (0.70-1.30); GLOMERULAR FILTRATION RATE > 60.0 (>49); GLUCOSE, FASTING 85 MG/DL (74-106); MAGNESIUM LEVEL 1.8 MG/DL (1.8-2.4); POTASSIUM SERUM 3.6 MMOL/L (3.5-5.1); SODIUM LEVEL 130 MMOL/L (136-145); TOTAL PROTEIN 6.1 G/DL (5.7-8.2)
[2022-09-26 07:27] VITALS: BP 143/80; TEMP 97.7; O2SAT 99
[2022-09-26] MEDS ORDERED: POTASSIUM CHLORIDE 10MEQ SR TABLET PO ONE ×2 (08:45→12:20)
[2022-09-26] MEDS: FOLIC ACID 1MG TAB PO SCH (09:15)
[2022-09-26] MEDS: THIAMINE 100 MG TAB PO SCH (09:16)
[2022-09-26] MEDS: lisinopriL 40MG TAB PO SCH (09:16)
[2022-09-26] MEDS: MONTELUKAST 10 MG TAB PO SCH (09:16)
[2022-09-26] MEDS: OMEPRAZOLE 20MG CAP PO SCH (09:16)
[2022-09-26] MEDS: MULTIVITAMINS/MINERALS THERAP 1 TAB PO SCH (09:16)
[2022-09-26] MEDS: CYANOCOBALAMIN 500 MCG TAB PO SCH (09:16)
[2022-09-26] MEDS: SODIUM CHLORIDE 1 GM TAB PO SCH ×3 (09:16→20:20)
[2022-09-26] MEDS: ENOXAPARIN 40MG/0.4ML SYRINGE (J1650 PER 10MG) SC SCH (09:17)
[2022-09-26 09:44] LABS: HEPATITIS B SURFACE ANTIGEN NEGATIVE (NEGATIVE)
[2022-09-26 10:05] LABS: HEPATITIS B CORE ANTIBODY IGM NEGATIVE (NEGATIVE); HEPATITIS C VIRUS ABY INDEX 0.1 INDEX (<0.8)
[2022-09-26 11:19] VITALS: BP 123/72; TEMP 97.4; O2SAT 100
[2022-09-26] MEDS: ACETAMINOPHEN TAB 650MG DOSE (2X325MG) PO PRN ×2 (16:17→21:52)
[2022-09-26 16:40] VITALS: BP 138/83; TEMP 98.1; O2SAT 95
[2022-09-26] MEDS: DULoxetine 30MG CAPSULE (CYMBALTA) PO SCH (20:21)
[2022-09-26 20:39] VITALS: BP 138/86; TEMP 98.6; O2SAT 99
[2022-09-26 21:10] LABS: BLOOD UREA NITROGEN 11 MG/DL (9-23); CALCIUM LEVEL 9.2 MG/DL (8.3-10.6); CARBON DIOXIDE LEVEL 20 MMOL/L (20-31); CHLORIDE LEVEL 99 MMOL/L (98-107); CREATININE FOR GFR 0.65 MG/DL (0.70-1.30); GLOMERULAR FILTRATION RATE > 60.0 (>49); GLUCOSE, FASTING 142 MG/DL (74-106); POTASSIUM SERUM 4.2 MMOL/L (3.5-5.1); SODIUM LEVEL 130 MMOL/L (136-145)
[2022-09-27 00:20] LABS: BLOOD UREA NITROGEN 9 MG/DL (9-23); CALCIUM LEVEL 8.8 MG/DL (8.3-10.6); CARBON DIOXIDE LEVEL 20 MMOL/L (20-31); CHLORIDE LEVEL 99 MMOL/L (98-107); CREATININE FOR GFR 0.68 MG/DL (0.70-1.30); GLOMERULAR FILTRATION RATE > 60.0 (>49); GLUCOSE, FASTING 95 MG/DL (74-106); POTASSIUM SERUM 4.1 MMOL/L (3.5-5.1); SODIUM LEVEL 128 MMOL/L (136-145)
[2022-09-27 06:00] VITALS: BP 145/78; TEMP 98.2; O2SAT 98
[2022-09-27 06:23] LABS: BASO # 0.1 10^3/uL (0.0-0.2); BASO % 1.4 % (0.0-1.0); EOS # 0.2 10^3/uL (0.0-0.5); EOS % 5.1 % (0.0-3.0); HEMATOCRIT 31.1 % (42.0-52.0); HEMOGLOBIN 10.9 g/dl (13.5-17.5); LYMPH # 0.7 10^3/uL (1.5-5.0); LYMPH % 15.9 % (24.0-44.0); MEAN CORPUSCULAR HEMOGLOBIN 32.3 pg (27.0-33.0); MEAN CORPUSCULAR VOLUME 92.3 fl (80.0-96.0); MONO # 1.2 10^3/uL (0.0-0.8); MONO % 27.1 % (2.0-8.0); NEUTROPHILS # 2.2 10^3/uL (1.5-8.5); NEUTROPHILS % 49.6 % (36.0-66.0); PLATELET COUNT, AUTOMATED 359 10^3/uL (150-450); RED BLOOD COUNT 3.37 10^6/uL (4.30-6.10); WHITE BLOOD COUNT 4.4 10^3/uL (4.0-10.0)
[2022-09-27 06:46] LABS: BLOOD UREA NITROGEN 9 MG/DL (9-23); CALCIUM LEVEL 9.6 MG/DL (8.3-10.6); CARBON DIOXIDE LEVEL 22 MMOL/L (20-31); CHLORIDE LEVEL 101 MMOL/L (98-107); CREATININE FOR GFR 0.65 MG/DL (0.70-1.30); GLOMERULAR FILTRATION RATE > 60.0 (>49); GLUCOSE, FASTING 88 MG/DL (74-106); MAGNESIUM LEVEL 1.6 MG/DL (1.8-2.4); PHOSPHORUS LEVEL 4.2 MG/DL (2.4-5.1); POTASSIUM SERUM 3.9 MMOL/L (3.5-5.1); SODIUM LEVEL 130 MMOL/L (136-145)
[2022-09-27] MEDS: MAG SULF 1GM/100ML (MAG RUN) 1 GM in IV 1 EA IV SCH ×2 (07:35→08:42)
[2022-09-27] MEDS: FOLIC ACID 1MG TAB PO SCH (08:43)
[2022-09-27] MEDS: ENOXAPARIN 40MG/0.4ML SYRINGE (J1650 PER 10MG) SC SCH (08:43)
[2022-09-27] MEDS: THIAMINE 100 MG TAB PO SCH (08:43)
[2022-09-27] MEDS: OMEPRAZOLE 20MG CAP PO SCH (08:43)
[2022-09-27] MEDS: SODIUM CHLORIDE 1 GM TAB PO SCH ×3 (08:43→20:38)
[2022-09-27] MEDS: lisinopriL 40MG TAB PO SCH (08:43)
[2022-09-27] MEDS: MULTIVITAMINS/MINERALS THERAP 1 TAB PO SCH (08:43)
[2022-09-27] MEDS: MONTELUKAST 10 MG TAB PO SCH (08:43)
[2022-09-27] MEDS: CYANOCOBALAMIN 500 MCG TAB PO SCH (08:43)
[2022-09-27] MEDS ORDERED: PILL CUTTER 1 EACH XX PRN (11:00)
[2022-09-27] MEDS: NALTREXONE 50 MG TAB PO SCH (13:00)
[2022-09-27] MEDS: ACETAMINOPHEN TAB 650MG DOSE (2X325MG) PO PRN (20:38)
[2022-09-27] MEDS: DULoxetine 30MG CAPSULE (CYMBALTA) PO SCH (20:39)
[2022-09-28 06:00] VITALS: BP 129/70; TEMP 97.5; O2SAT 97
[2022-09-28 06:14] LABS: BLOOD UREA NITROGEN 7 MG/DL (9-23); CALCIUM LEVEL 10.1 MG/DL (8.3-10.6); CARBON DIOXIDE LEVEL 23 MMOL/L (20-31); CHLORIDE LEVEL 102 MMOL/L (98-107); CREATININE FOR GFR 0.66 MG/DL (0.70-1.30); GLOMERULAR FILTRATION RATE > 60.0 (>49); GLUCOSE, FASTING 88 MG/DL (74-106); MAGNESIUM LEVEL 1.9 MG/DL (1.8-2.4); POTASSIUM SERUM 3.6 MMOL/L (3.5-5.1); SODIUM LEVEL 134 MMOL/L (136-145)
[2022-09-28] MEDS: ENOXAPARIN 40MG/0.4ML SYRINGE (J1650 PER 10MG) SC SCH (09:19)
[2022-09-28] MEDS: NALTREXONE 50 MG TAB PO SCH (09:20)
[2022-09-28] MEDS: OMEPRAZOLE 20MG CAP PO SCH (09:21)
[2022-09-28] MEDS: CYANOCOBALAMIN 500 MCG TAB PO SCH (09:21)
[2022-09-28] MEDS: FOLIC ACID 1MG TAB PO SCH (09:21)
[2022-09-28] MEDS: SODIUM CHLORIDE 1 GM TAB PO SCH ×3 (09:21→20:08)
[2022-09-28] MEDS: MULTIVITAMINS/MINERALS THERAP 1 TAB PO SCH (09:21)
[2022-09-28] MEDS: THIAMINE 100 MG TAB PO SCH (09:21)
[2022-09-28] MEDS: MONTELUKAST 10 MG TAB PO SCH (09:22)
[2022-09-28] MEDS: lisinopriL 40MG TAB PO SCH (09:22)
[2022-09-28] MEDS: ACETAMINOPHEN TAB 650MG DOSE (2X325MG) PO PRN ×2 (09:22→16:45)
[2022-09-28] MEDS: DULoxetine 30MG CAPSULE (CYMBALTA) PO SCH (20:08)
[2022-09-29 06:00] VITALS: BP 139/40; TEMP 98.4; O2SAT 98
[2022-09-29] MEDS: MULTIVITAMINS/MINERALS THERAP 1 TAB PO SCH (10:42)
[2022-09-29] MEDS: THIAMINE 100 MG TAB PO SCH (10:43)
[2022-09-29] MEDS: NALTREXONE 50 MG TAB PO SCH (10:44)
[2022-09-29] MEDS: CYANOCOBALAMIN 500 MCG TAB PO SCH (10:44)
[2022-09-29] MEDS: SODIUM CHLORIDE 1 GM TAB PO SCH ×3 (10:44→20:34)
[2022-09-29] MEDS: FOLIC ACID 1MG TAB PO SCH (10:45)
[2022-09-29] MEDS: MONTELUKAST 10 MG TAB PO SCH (10:45)
[2022-09-29] MEDS: OMEPRAZOLE 20MG CAP PO SCH (10:45)
[2022-09-29] MEDS: ENOXAPARIN 40MG/0.4ML SYRINGE (J1650 PER 10MG) SC SCH (10:46)
[2022-09-29] MEDS: lisinopriL 40MG TAB PO SCH (10:48)
[2022-09-29] MEDS: ACETAMINOPHEN TAB 650MG DOSE (2X325MG) PO PRN ×2 (16:27→22:45)
[2022-09-29 19:57] VITALS: BP 153/80; TEMP 98.2; O2SAT 99
[2022-09-29] MEDS: DULoxetine 30MG CAPSULE (CYMBALTA) PO SCH (20:35)
[2022-09-30 05:35] VITALS: BP 149/80; TEMP 97.8; O2SAT 99
[2022-09-30] MEDS: lisinopriL 40MG TAB PO SCH (08:46)
[2022-09-30] MEDS: THIAMINE 100 MG TAB PO SCH (08:46)
[2022-09-30] MEDS: FOLIC ACID 1MG TAB PO SCH (08:46)
[2022-09-30] MEDS: SODIUM CHLORIDE 1 GM TAB PO SCH ×3 (08:46→20:07)
[2022-09-30] MEDS: NALTREXONE 50 MG TAB PO SCH (08:47)
[2022-09-30] MEDS: MULTIVITAMINS/MINERALS THERAP 1 TAB PO SCH (08:47)
[2022-09-30] MEDS: MONTELUKAST 10 MG TAB PO SCH (08:47)
[2022-09-30] MEDS: CYANOCOBALAMIN 500 MCG TAB PO SCH (08:47)
[2022-09-30] MEDS: OMEPRAZOLE 20MG CAP PO SCH (08:47)
[2022-09-30] MEDS: ENOXAPARIN 40MG/0.4ML SYRINGE (J1650 PER 10MG) SC SCH (08:48)
[2022-09-30] MEDS: ACETAMINOPHEN TAB 650MG DOSE (2X325MG) PO PRN ×2 (14:07→20:16)
[2022-09-30] MEDS: DULoxetine 30MG CAPSULE (CYMBALTA) PO SCH (20:07)
[2022-09-30] MEDS ORDERED: diphenhydrAMINE 25MG CAP PO ONE (23:15)
[2022-09-30] MEDS ORDERED: FAMOTIDINE 20 MG TAB PO ONE (23:15)
[2022-10-01 01:09] LABS: VITAMIN B1 LEVEL WHOLE BLOOD 223.8 nmol/L (66.5-200.0)
[2022-10-01 05:50] VITALS: BP 133/65; TEMP 98.2; O2SAT 98
[2022-10-01] MEDS: ACETAMINOPHEN TAB 650MG DOSE (2X325MG) PO PRN (08:10)
[2022-10-01] MEDS: MONTELUKAST 10 MG TAB PO SCH (08:10)
[2022-10-01] MEDS: SODIUM CHLORIDE 1 GM TAB PO SCH ×2 (08:10→15:02)
[2022-10-01] MEDS: CYANOCOBALAMIN 500 MCG TAB PO SCH (08:10)
[2022-10-01] MEDS: MULTIVITAMINS/MINERALS THERAP 1 TAB PO SCH (08:10)
[2022-10-01 08:11] VITALS: BP 133/65
[2022-10-01] MEDS: NALTREXONE 50 MG TAB PO SCH (08:11)
[2022-10-01] MEDS: lisinopriL 40MG TAB PO SCH (08:11)
[2022-10-01] MEDS: OMEPRAZOLE 20MG CAP PO SCH (08:12)
[2022-10-01] MEDS: FOLIC ACID 1MG TAB PO SCH (08:12)
[2022-10-01] MEDS: THIAMINE 100 MG TAB PO SCH (08:13)
[2022-10-01] MEDS: ENOXAPARIN 40MG/0.4ML SYRINGE (J1650 PER 10MG) SC SCH (08:13)
[2022-10-01] MEDS ORDERED: AMLO1TAB25 PO (11:09)
[2022-10-01] MEDS ORDERED: SODI1TAB6 PO (11:09)
[2022-10-01] MEDS ORDERED: VITA500T40 PO (11:09)
[2022-10-01] MEDS ORDERED: THIA100TA PO (11:09)
[2022-10-01] MEDS ORDERED: FOLI1TAB11 PO (11:09)
[2022-10-01] MEDS ORDERED: MAGN400T2 PO (11:11)
== END 2022-10-01 15:05 | disposition home health service (06) | DRG 425 ==
LOC: M ED 07:53 → EDBD 07:53 → M ED INP 07:54 → M PCU 12:06 → OBSVTOIN 09-23 12:12 → M MSPAV 09-26 16:34
PROVIDERS: ADMIT Internal Medicine Nephrology; ATTEND Internal Medicine
DX: E87.1 Hypo-osmolality and hyponatremia (principal); E87.20 Acidosis, unspecified; F10.27 Alcohol dependence with alcohol-induced persisting dementia; E83.42 Hypomagnesemia; G62.1 Alcoholic polyneuropathy; N31.2 Flaccid neuropathic bladder, not elsewhere classified; E83.52 Hypercalcemia; K76.0 Fatty (change of) liver, not elsewhere classified; E78.5 Hyperlipidemia, unspecified; E87.6 Hypokalemia; F10.239 Alcohol dependence with withdrawal, unspecified; I10 Essential (primary) hypertension; I16.0 Hypertensive urgency; J45.909 Unspecified asthma, uncomplicated; K21.9 Gastro-esophageal reflux disease without esophagitis; R29.6 Repeated falls; R26.89 Other abnormalities of gait and mobility; D64.9 Anemia, unspecified; Z79.899 Other long term (current) drug therapy; F32.A Depression, unspecified; K64.8 Other hemorrhoids

== ENCOUNTER 2022-10-07 14:54 | Emergency (ER) | payer OTHER ==
[~2022-10-07] VITALS: Ht 167.6 cm; Wt 79.5 kg
[~2022-10-07 14:54] MED LIST changes: +AMLO1TAB25 PO; +FERR324T2 PO; +MAGN400T2 PO; +SODI1TAB6 PO; +VITA500T40 PO
[2022-10-07 18:45] LABS: BASO # 0.1 10^3/uL (0.0-0.2); BASO % 1.6 % (0.0-1.0); EOS # 0.3 10^3/uL (0.0-0.5); EOS % 4.1 % (0.0-3.0); HEMOGLOBIN 11.4 g/dl (13.5-17.5); LYMPH # 1.6 10^3/uL (1.5-5.0); LYMPH % 26.4 % (24.0-44.0); MEAN CORPUSCULAR HGB CONC 33.5 g/dl (32.0-36.5); MEAN CORPUSCULAR VOLUME 95.5 fl (80.0-96.0); MONO # 0.7 10^3/uL (0.0-0.8); MONO % 11.6 % (2.0-8.0); NEUTROPHILS # 3.4 10^3/uL (1.5-8.5); NEUTROPHILS % 55.8 % (36.0-66.0); PLATELET COUNT, AUTOMATED 461 10^3/uL (150-450); RED BLOOD COUNT 3.56 10^6/uL (4.30-6.10); WHITE BLOOD COUNT 6.1 10^3/uL (4.0-10.0)
[2022-10-07 19:03] LABS: LIPASE 38 U/L (12-53)
[2022-10-07 19:05] LABS: ALBUMIN 3.9 G/DL (3.2-5.2); ALKALINE PHOSPHATASE 83 U/L (46-116); ALT/SGPT 68 U/L (7.0-40); AST/SGOT 47 U/L (<34); BILIRUBIN,DIRECT 0.2 MG/DL (<0.4); BILIRUBIN,TOTAL 0.3 MG/DL (0.3-1.2); BLOOD UREA NITROGEN 5 MG/DL (9-23); CALCIUM LEVEL 9.5 MG/DL (8.3-10.6); CARBON DIOXIDE LEVEL 25 MMOL/L (20-31); CHLORIDE LEVEL 107 MMOL/L (98-107); CREATININE FOR GFR 0.59 MG/DL (0.70-1.30); GLOMERULAR FILTRATION RATE > 60.0 (>49); GLUCOSE, FASTING 77 MG/DL (74-106); SODIUM LEVEL 143 MMOL/L (136-145); TOTAL PROTEIN 6.5 G/DL (5.7-8.2)
[2022-10-07 19:13] LABS: RSV AMPLIFICATION NEGATIVE (NEGATIVE)
[2022-10-07 19:30] VITALS: BP 150/74; TEMP 98; O2SAT 99
[2022-10-07 19:47] LABS: ETHYL ALCOHOL (ETHANOL) 0.272 % (0.000-0.010)
== END 2022-10-07 19:56 | disposition home or self-care (01) ==
LOC: EDBD 14:54 → M ED 14:54
DX: F10.129 Alcohol abuse with intoxication, unspecified (principal); W19.XXXA Unspecified fall, initial encounter; Y92.89 Other specified places as the place of occurrence of the external cause; E78.5 Hyperlipidemia, unspecified; K21.9 Gastro-esophageal reflux disease without esophagitis; N40.0 Benign prostatic hyperplasia without lower urinary tract symptoms; F32.A Depression, unspecified; I10 Essential (primary) hypertension; Z79.899 Other long term (current) drug therapy

== ENCOUNTER 2023-01-25 08:49 | Inpatient (IN) | payer OTHER ==
[~2023-01-25] VITALS: Ht 170.2 cm; Wt 75.9 kg
[2023-01-25] MEDS ORDERED: FOLIC ACID 1MG TAB PO SCH (09:00)
[2023-01-25] MEDS ORDERED: THIAMINE 100 MG TAB PO SCH (09:00)
[2023-01-25] MEDS ORDERED: MULTIVITAMINS/MINERALS THERAP 1 TAB PO SCH (09:00)
[2023-01-25 09:24] LABS: VENOUS BASE EXCESS -6.3 (-2.0-2.0); VENOUS HCO3 18.4 MMOL/L (23.0-27.0); VENOUS O2 SATURATION 69.4 % (60.0-80.0); VENOUS PARTIAL PRESSURE CO2 34.4 mmHg (38.0-50.0); VENOUS PARTIAL PRESSURE O2 40.3 mmHg (30.0-50.0); VENOUS PH 7.347 UNITS (7.330-7.430); VENOUS STANDARD HCO3 18.7 MMOL/L; VENOUS TOTAL CO2 19.5 MMOL/L (24.0-28.0)
[2023-01-25 09:32] LABS: BASO % 0.9 % (0.0-1.0); EOS # 0.1 10^3/uL (0.0-0.5); EOS % 1.8 % (0.0-3.0); HEMATOCRIT 34.2 % (42.0-52.0); LYMPH # 0.8 10^3/uL (1.5-5.0); LYMPH % 17.4 % (24.0-44.0); MEAN CORPUSCULAR HEMOGLOBIN 34.1 pg (27.0-33.0); MEAN CORPUSCULAR HGB CONC 35.1 g/dl (32.0-36.5); MEAN CORPUSCULAR VOLUME 97.2 fl (80.0-96.0); MONO # 0.7 10^3/uL (0.0-0.8); NEUTROPHILS # 2.8 10^3/uL (1.5-8.5); NEUTROPHILS % 63.2 % (36.0-66.0); PLATELET COUNT, AUTOMATED 213 10^3/uL (150-450); RED BLOOD COUNT 3.52 10^6/uL (4.30-6.10); WHITE BLOOD COUNT 4.4 10^3/uL (4.0-10.0)
[2023-01-25] MEDS ORDERED: AMLO1TAB24 PO ×2 (09:47→12:40)
[2023-01-25] MEDS ORDERED: IBUP200C25 PO ×2 (09:52→12:40)
[2023-01-25 09:56] LABS: ETHYL ALCOHOL (ETHANOL) 0.284 % (0.000-0.010)
[2023-01-25 09:57] LABS: SALICYLATE LEVEL < 3.0 MG/DL (<30)
[2023-01-25 09:58] LABS: ACETAMINOPHEN LEVEL 10.4 UG/ML (10.0-20.0); ALBUMIN 4.1 G/DL (3.2-5.2); ALKALINE PHOSPHATASE 73 U/L (46-116); ALT/SGPT 34 U/L (7.0-40); AST/SGOT 57 U/L (<34); BILIRUBIN,DIRECT 0.2 MG/DL (<0.4); BILIRUBIN,TOTAL 0.4 MG/DL (0.3-1.2); BLOOD UREA NITROGEN 6 MG/DL (9-23); CALCIUM LEVEL 9.2 MG/DL (8.3-10.6); CARBON DIOXIDE LEVEL 21 MMOL/L (20-31); CHLORIDE LEVEL 93 MMOL/L (98-107); CK-MB VALUE MASS 2.4 NG/ML (<3.6); CPK CREATINE PHOSPHOKINASE 127 U/L (46-171); CREATININE FOR GFR 0.68 MG/DL (0.70-1.30); GLOMERULAR FILTRATION RATE > 60.0 (>49); GLUCOSE, FASTING 85 MG/DL (74-106); MAGNESIUM LEVEL 2.3 MG/DL (1.8-2.4); MB/CK RELATIVE INDEX 1.88 (< OR =4); POTASSIUM SERUM 4.1 MMOL/L (3.5-5.1); SODIUM LEVEL 124 MMOL/L (136-145)
[2023-01-25 10:00] LABS: OSMOLALITY SERUM 327 MOSM/KG (275-295); THYROID STIMULATING HORMONE 2.526 uIU/ML (0.55-4.78)
[2023-01-25 10:18] LABS: AMPHETAMINES LEVEL URINE NEGATIVE (NEGATIVE); BARBITURATES URINE NEGATIVE (NEGATIVE); BENZODIAZEPINES URINE NEGATIVE (NEGATIVE); COCAINE METABOLITE URINE NEGATIVE (NEGATIVE); METHADONE URINE NEGATIVE (NEGATIVE)
[2023-01-25 10:19] LABS: CANNABINOIDS URINE NEGATIVE (NEGATIVE); OPIATES URINE NEGATIVE (NEGATIVE); PHENCYCLIDINE URINE NEGATIVE (NEGATIVE)
[2023-01-25 10:26] LABS: RSV AMPLIFICATION NEGATIVE (NEGATIVE)
[2023-01-25 11:04] LABS: CK-MB VALUE MASS 2.1 NG/ML (<3.6)
[2023-01-25 11:26] LABS: MB/CK RELATIVE INDEX 1.81 (< OR =4)
[2023-01-25] MEDS ORDERED: MED REC IN PROGRESS XX SCH (12:20)
[2023-01-25] MEDS ORDERED: LORazepam 2 MG TAB PO PRN ×2 (12:35→18:35)
[2023-01-25 14:12] LABS: ACETAMINOPHEN LEVEL 4.1 UG/ML (10.0-20.0)
[2023-01-25] MEDS: cefTRIAXone SOD 1 GM in D5W MINI-BAG PLUS 50 ML IV SCH (14:15)
[2023-01-25] MEDS: OXAZEPAM 15MG CAP PO SCH ×3 (14:15→23:44)
[2023-01-25 16:00] VITALS: BP 157/82; TEMP 97.9; O2SAT 99
[2023-01-25 16:32] LABS: BLOOD UREA NITROGEN 7 MG/DL (9-23); CALCIUM LEVEL 8.8 MG/DL (8.3-10.6); CARBON DIOXIDE LEVEL 20 MMOL/L (20-31); CHLORIDE LEVEL 97 MMOL/L (98-107); CREATININE FOR GFR 0.64 MG/DL (0.70-1.30); GLOMERULAR FILTRATION RATE > 60.0 (>49); GLUCOSE, FASTING 77 MG/DL (74-106); POTASSIUM SERUM 4.2 MMOL/L (3.5-5.1); SODIUM LEVEL 127 MMOL/L (136-145)
[2023-01-25] MEDS ORDERED: oxyCODONE 5MG TAB PO PRN (17:45)
[2023-01-25] MEDS ORDERED: KETOROLAC 30 MG/ML 1ML VIAL IV ONE (17:45)
[2023-01-25] MEDS ORDERED: NALOXONE INJ 0.4MG/1ML VIAL IV PRN (17:45)
[2023-01-25] MEDS ORDERED: HYDROMORPHONE HCL 0.5 MG/ 0.5 ML SYRINGE IV ONE (17:45)
[2023-01-25 19:27] VITALS: BP 138/90; TEMP 97.5; O2SAT 99
[2023-01-25] MEDS: THIAMINE 100 MG TAB PO SCH (20:33)
[2023-01-25 23:08] LABS: BLOOD UREA NITROGEN 9 MG/DL (9-23); CALCIUM LEVEL 9.2 MG/DL (8.3-10.6); CARBON DIOXIDE LEVEL 21 MMOL/L (20-31); CHLORIDE LEVEL 97 MMOL/L (98-107); GLOMERULAR FILTRATION RATE > 60.0 (>49); GLUCOSE, FASTING 94 MG/DL (74-106); POTASSIUM SERUM 4.3 MMOL/L (3.5-5.1); SODIUM LEVEL 127 MMOL/L (136-145)
[2023-01-25 23:20] VITALS: BP 132/80; TEMP 98; O2SAT 98
[2023-01-26] VITALS (7 sets, daily range): BP systolic 130–162; BP diastolic 73–92; TEMP 96.9–97.8; O2SAT 98–100
[2023-01-26 05:05] LABS: BLOOD UREA NITROGEN 12 MG/DL (9-23); CALCIUM LEVEL 9.5 MG/DL (8.3-10.6); CARBON DIOXIDE LEVEL 23 MMOL/L (20-31); CHLORIDE LEVEL 97 MMOL/L (98-107); CREATININE FOR GFR 0.71 MG/DL (0.70-1.30); GLOMERULAR FILTRATION RATE > 60.0 (>49); GLUCOSE, FASTING 97 MG/DL (74-106); POTASSIUM SERUM 4.7 MMOL/L (3.5-5.1); SODIUM LEVEL 128 MMOL/L (136-145)
[2023-01-26] MEDS: OXAZEPAM 15MG CAP PO SCH ×3 (05:49→17:48)
[2023-01-26] MEDS ORDERED: IBUPROFEN 800 MG TAB PO SCH (09:00)
[2023-01-26] MEDS: OMEPRAZOLE 20MG CAP PO SCH (09:40)
[2023-01-26] MEDS: FOLIC ACID 1MG TAB PO SCH (09:40)
[2023-01-26] MEDS: FEXOFENADINE 60MG TAB PO SCH (09:41)
[2023-01-26] MEDS: MONTELUKAST 10 MG TAB PO SCH (09:41)
[2023-01-26] MEDS: THIAMINE 100 MG TAB PO SCH ×2 (09:41→22:04)
[2023-01-26] MEDS: amLODIPine 5 MG TAB PO SCH (09:41)
[2023-01-26] MEDS: lisinopriL 40MG TAB PO SCH (09:41)
[2023-01-26] MEDS: MULTIVITAMINS/MINERALS THERAP 1 TAB PO SCH (09:41)
[2023-01-26 10:30] LABS: BLOOD UREA NITROGEN 10 MG/DL (9-23); CALCIUM LEVEL 9.9 MG/DL (8.3-10.6); CARBON DIOXIDE LEVEL 24 MMOL/L (20-31); CHLORIDE LEVEL 96 MMOL/L (98-107); CREATININE FOR GFR 0.71 MG/DL (0.70-1.30); GLOMERULAR FILTRATION RATE > 60.0 (>49); GLUCOSE, FASTING 119 MG/DL (74-106); POTASSIUM SERUM 4.2 MMOL/L (3.5-5.1); SODIUM LEVEL 129 MMOL/L (136-145)
[2023-01-26] MEDS ORDERED: oxyCODONE 5MG TAB PO ONE (11:30)
[2023-01-26] MEDS: LIDOCAINE 5% OINT 30GM TUBE TOP SCH ×2 (13:11→22:04)
[2023-01-26] MEDS: cefTRIAXone SOD 1 GM in D5W MINI-BAG PLUS 50 ML IV SCH (15:27)
[2023-01-26 17:53] LABS: BLOOD UREA NITROGEN 9 MG/DL (9-23); CALCIUM LEVEL 9.7 MG/DL (8.3-10.6); CARBON DIOXIDE LEVEL 24 MMOL/L (20-31); CHLORIDE LEVEL 96 MMOL/L (98-107); CREATININE FOR GFR 0.66 MG/DL (0.70-1.30); GLOMERULAR FILTRATION RATE > 60.0 (>49); GLUCOSE, FASTING 114 MG/DL (74-106); POTASSIUM SERUM 3.7 MMOL/L (3.5-5.1); SODIUM LEVEL 128 MMOL/L (136-145)
[2023-01-26 23:06] LABS: BLOOD UREA NITROGEN 8 MG/DL (9-23); CALCIUM LEVEL 9.8 MG/DL (8.3-10.6); CARBON DIOXIDE LEVEL 23 MMOL/L (20-31); CHLORIDE LEVEL 98 MMOL/L (98-107); CREATININE FOR GFR 0.62 MG/DL (0.70-1.30); GLOMERULAR FILTRATION RATE > 60.0 (>49); GLUCOSE, FASTING 101 MG/DL (74-106); POTASSIUM SERUM 3.7 MMOL/L (3.5-5.1); SODIUM LEVEL 129 MMOL/L (136-145)
[2023-01-27 00:06] VITALS: BP 142/83; TEMP 97.1; O2SAT 99
[2023-01-27] MEDS: OXAZEPAM 15MG CAP PO SCH ×4 (00:59→21:18)
[2023-01-27 04:42] VITALS: BP 137/88; TEMP 97.1; O2SAT 98
[2023-01-27 05:18] LABS: BLOOD UREA NITROGEN 7 MG/DL (9-23); CALCIUM LEVEL 9.7 MG/DL (8.3-10.6); CARBON DIOXIDE LEVEL 22 MMOL/L (20-31); CHLORIDE LEVEL 102 MMOL/L (98-107); CREATININE FOR GFR 0.64 MG/DL (0.70-1.30); GLOMERULAR FILTRATION RATE > 60.0 (>49); GLUCOSE, FASTING 98 MG/DL (74-106); POTASSIUM SERUM 3.7 MMOL/L (3.5-5.1); SODIUM LEVEL 134 MMOL/L (136-145)
[2023-01-27 09:25] VITALS: BP 145/87; TEMP 97; O2SAT 99
[2023-01-27] MEDS: FEXOFENADINE 60MG TAB PO SCH (09:45)
[2023-01-27] MEDS: lisinopriL 40MG TAB PO SCH (09:46)
[2023-01-27] MEDS: OMEPRAZOLE 20MG CAP PO SCH (09:46)
[2023-01-27] MEDS: MONTELUKAST 10 MG TAB PO SCH (09:46)
[2023-01-27] MEDS: amLODIPine 5 MG TAB PO SCH (09:46)
[2023-01-27] MEDS: MULTIVITAMINS/MINERALS THERAP 1 TAB PO SCH (09:46)
[2023-01-27] MEDS: THIAMINE 100 MG TAB PO SCH ×2 (09:47→21:19)
[2023-01-27] MEDS: FOLIC ACID 1MG TAB PO SCH (09:47)
[2023-01-27] MEDS: LIDOCAINE 5% OINT 30GM TUBE TOP SCH ×2 (09:52→21:19)
[2023-01-27 10:41] LABS: BLOOD UREA NITROGEN 6 MG/DL (9-23); CALCIUM LEVEL 10.1 MG/DL (8.3-10.6); CARBON DIOXIDE LEVEL 22 MMOL/L (20-31); CHLORIDE LEVEL 100 MMOL/L (98-107); CREATININE FOR GFR 0.73 MG/DL (0.70-1.30); GLOMERULAR FILTRATION RATE > 60.0 (>49); GLUCOSE, FASTING 99 MG/DL (74-106); POTASSIUM SERUM 3.6 MMOL/L (3.5-5.1); SODIUM LEVEL 132 MMOL/L (136-145)
[2023-01-27 13:16] VITALS: BP 138/87; TEMP 97; O2SAT 100
[2023-01-27] MEDS: LevoFLOXacin 750 MG TABLET PO SCH (13:36)
[2023-01-27 16:40] LABS: BLOOD UREA NITROGEN 9 MG/DL (9-23); CALCIUM LEVEL 9.9 MG/DL (8.3-10.6); CARBON DIOXIDE LEVEL 22 MMOL/L (20-31); CHLORIDE LEVEL 98 MMOL/L (98-107); GLOMERULAR FILTRATION RATE > 60.0 (>49); GLUCOSE, FASTING 120 MG/DL (74-106); POTASSIUM SERUM 3.8 MMOL/L (3.5-5.1); SODIUM LEVEL 132 MMOL/L (136-145)
[2023-01-27 16:44] VITALS: BP 127/81; TEMP 97; O2SAT 100
[2023-01-27 20:00] VITALS: BP 121/76; TEMP 97; O2SAT 98
[2023-01-27] MEDS: HEPARIN SOD (PORCINE) 5000UNITS/ML 1ML VIAL/SYRINGE SQ SCH (21:18)
[2023-01-27 22:46] LABS: BLOOD UREA NITROGEN 9 MG/DL (9-23); CALCIUM LEVEL 9.4 MG/DL (8.3-10.6); CARBON DIOXIDE LEVEL 19 MMOL/L (20-31); CHLORIDE LEVEL 99 MMOL/L (98-107); CREATININE FOR GFR 0.79 MG/DL (0.70-1.30); GLOMERULAR FILTRATION RATE > 60.0 (>49); GLUCOSE, FASTING 129 MG/DL (74-106); POTASSIUM SERUM 3.4 MMOL/L (3.5-5.1); SODIUM LEVEL 126 MMOL/L (136-145)
[2023-01-28 00:35] VITALS: BP 131/86; TEMP 97.5; O2SAT 98
[2023-01-28 03:34] VITALS: BP 150/78; TEMP 96.8; O2SAT 100
[2023-01-28 04:37] LABS: BLOOD UREA NITROGEN 9 MG/DL (9-23); CALCIUM LEVEL 9.7 MG/DL (8.3-10.6); CARBON DIOXIDE LEVEL 21 MMOL/L (20-31); CHLORIDE LEVEL 101 MMOL/L (98-107); CREATININE FOR GFR 0.79 MG/DL (0.70-1.30); GLOMERULAR FILTRATION RATE > 60.0 (>49); GLUCOSE, FASTING 97 MG/DL (74-106); POTASSIUM SERUM 3.5 MMOL/L (3.5-5.1); SODIUM LEVEL 132 MMOL/L (136-145)
[2023-01-28] MEDS: LevoFLOXacin 750 MG TABLET PO SCH (06:31)
[2023-01-28] MEDS: HEPARIN SOD (PORCINE) 5000UNITS/ML 1ML VIAL/SYRINGE SQ SCH ×2 (06:31→14:00)
[2023-01-28] MEDS: OXAZEPAM 15MG CAP PO SCH (06:31)
[2023-01-28 07:25] VITALS: BP 130/78; TEMP 96.6; O2SAT 99
[2023-01-28] MEDS ORDERED: FOLI1TAB11 PO (09:02)
[2023-01-28] MEDS ORDERED: LEVO1TAB40 PO (09:02)
[2023-01-28] MEDS ORDERED: ACET500T15 PO (09:02)
[2023-01-28] MEDS ORDERED: OXAZ10CA3 PO (09:02)
[2023-01-28] MEDS: FEXOFENADINE 60MG TAB PO SCH (09:23)
[2023-01-28] MEDS: MULTIVITAMINS/MINERALS THERAP 1 TAB PO SCH (09:24)
[2023-01-28] MEDS: MONTELUKAST 10 MG TAB PO SCH (09:24)
[2023-01-28] MEDS: LIDOCAINE 5% OINT 30GM TUBE TOP SCH (09:24)
[2023-01-28] MEDS: OMEPRAZOLE 20MG CAP PO SCH (09:24)
[2023-01-28] MEDS: lisinopriL 40MG TAB PO SCH (09:24)
[2023-01-28 09:36] VITALS: BP 130/78
[2023-01-28] MEDS: FOLIC ACID 1MG TAB PO SCH (09:36)
[2023-01-28] MEDS: amLODIPine 5 MG TAB PO SCH (09:36)
[2023-01-28] MEDS ORDERED: FEXO-112 PO (11:49)
[2023-01-28] MEDS ORDERED: AMLO1TAB24 PO (11:49)
[2023-01-28] MEDS ORDERED: OXAZEPAM 15MG CAP PO SCH (18:00)
== END 2023-01-28 16:05 | disposition home health service (06) | DRG 466 ==
LOC: EDBD 08:49 → M ED 08:49 → M ED INP 12:33 → M PCU 15:54
PROVIDERS: ADMIT General Practice; ATTEND General Practice
DX: T83.511A Infection and inflammatory reaction due to indwelling urethral catheter, initial encounter (principal); R45.851 Suicidal ideations; K76.0 Fatty (change of) liver, not elsewhere classified; E87.1 Hypo-osmolality and hyponatremia; N31.2 Flaccid neuropathic bladder, not elsewhere classified; F10.129 Alcohol abuse with intoxication, unspecified; I10 Essential (primary) hypertension; E78.5 Hyperlipidemia, unspecified; R29.6 Repeated falls; M54.50 Low back pain, unspecified; K21.9 Gastro-esophageal reflux disease without esophagitis; N40.0 Benign prostatic hyperplasia without lower urinary tract symptoms; F32.A Depression, unspecified; Z81.1 Family history of alcohol abuse and dependence; Z79.899 Other long term (current) drug therapy; Z20.822 Contact with and (suspected) exposure to COVID-19; N39.0 Urinary tract infection, site not specified

== ENCOUNTER → 2023-02-05 | Outpatient (REF) | payer OTHER ==
[~2023-02-05] MED LIST changes: +IBUP200C25 PO; +LEVO1TAB40 PO; +OXAZ10CA3 PO
== END ==
LOC: M SFHCPLAZ 10:31
PROVIDERS: ATTEND Student in an Organized Health Care Education/Training Program
DX: Z53.9 Procedure and treatment not carried out, unspecified reason (principal)

== ENCOUNTER → 2023-02-27 | Outpatient (CLI) | payer OTHER ==
[2023-02-27 14:15] LABS: VITAMIN B12 LEVEL 559 PG/ML (211-911)
[2023-02-27 14:16] LABS: ALBUMIN 4.1 G/DL (3.2-5.2); ALKALINE PHOSPHATASE 74 U/L (46-116); ALT/SGPT 30 U/L (7.0-40); AST/SGOT 40 U/L (<34); BILIRUBIN,TOTAL 0.6 MG/DL (0.3-1.2); BLOOD UREA NITROGEN < 5 MG/DL (9-23); CALCIUM LEVEL 9.6 MG/DL (8.3-10.6); CARBON DIOXIDE LEVEL 24 MMOL/L (20-31); CHLORIDE LEVEL 94 MMOL/L (98-107); CREATININE FOR GFR 0.61 MG/DL (0.70-1.30); GLOMERULAR FILTRATION RATE > 60.0 (>49); GLUCOSE, FASTING 79 MG/DL (74-106); POTASSIUM SERUM 3.9 MMOL/L (3.5-5.1); SODIUM LEVEL 126 MMOL/L (136-145)
[2023-02-27 14:17] LABS: BASO % 0.3 % (0.0-1.0); EOS # 0.1 10^3/uL (0.0-0.5); EOS % 1.6 % (0.0-3.0); HEMOGLOBIN 12.4 g/dl (13.5-17.5); LYMPH # 0.8 10^3/uL (1.5-5.0); LYMPH % 10.2 % (24.0-44.0); MEAN CORPUSCULAR HEMOGLOBIN 34.5 pg (27.0-33.0); MEAN CORPUSCULAR HGB CONC 34.4 g/dl (32.0-36.5); MEAN CORPUSCULAR VOLUME 100.3 fl (80.0-96.0); MONO # 0.9 10^3/uL (0.0-0.8); MONO % 12.3 % (2.0-8.0); NEUTROPHILS # 5.5 10^3/uL (1.5-8.5); NEUTROPHILS % 75.3 % (36.0-66.0); PLATELET COUNT, AUTOMATED 200 10^3/uL (150-450); RED BLOOD COUNT 3.59 10^6/uL (4.30-6.10); WHITE BLOOD COUNT 7.3 10^3/uL (4.0-10.0)
[2023-02-27 14:31] LABS: HEMATOCRIT 35.5 % (42.0-52.0)
== END ==
LOC: M PLALAB 10:36
PROVIDERS: ATTEND Student in an Organized Health Care Education/Training Program
DX: E87.1 Hypo-osmolality and hyponatremia (principal); F10.20 Alcohol dependence, uncomplicated; I10 Essential (primary) hypertension

== ENCOUNTER → 2023-03-26 | Outpatient (CLI) | payer OTHER ==
[2023-03-26 15:05] LABS: BLOOD UREA NITROGEN < 5 MG/DL (9-23); CALCIUM LEVEL 9.4 MG/DL (8.3-10.6); CARBON DIOXIDE LEVEL 26 MMOL/L (20-31); CHLORIDE LEVEL 98 MMOL/L (98-107); CREATININE FOR GFR 0.61 MG/DL (0.70-1.30); GLOMERULAR FILTRATION RATE > 60.0 (>49); GLUCOSE, FASTING 94 MG/DL (74-106); POTASSIUM SERUM 4.2 MMOL/L (3.5-5.1); SODIUM LEVEL 134 MMOL/L (136-145)
[2023-03-26 15:14] LABS: CREATININE, URINE 12.4 MG/DL
== END ==
LOC: M PLALAB 11:23
PROVIDERS: ATTEND Student in an Organized Health Care Education/Training Program
DX: I10 Essential (primary) hypertension (principal); E87.1 Hypo-osmolality and hyponatremia

== ENCOUNTER 2023-04-29 10:04 | Inpatient (IN) | payer BC, OTHER ==
[~2023-04-29] VITALS: Ht 167.6 cm; Wt 72.6 kg
[2023-04-29] MEDS ORDERED: THIAMINE 200MG 2ML VIAL IM ONE (10:25)
[2023-04-29 10:42] LABS: BASO % 0.2 % (0.0-1.0); HEMATOCRIT 37.5 % (42.0-52.0); HEMOGLOBIN 13.2 g/dl (13.5-17.5); LYMPH # 0.2 10^3/uL (1.5-5.0); LYMPH % 2.1 % (24.0-44.0); MEAN CORPUSCULAR HEMOGLOBIN 34.7 pg (27.0-33.0); MEAN CORPUSCULAR HGB CONC 35.2 g/dl (32.0-36.5); MEAN CORPUSCULAR VOLUME 98.7 fl (80.0-96.0); MONO # 1.4 10^3/uL (0.0-0.8); MONO % 13.8 % (2.0-8.0); NEUTROPHILS # 8.5 10^3/uL (1.5-8.5); NEUTROPHILS % 83.6 % (36.0-66.0); PLATELET COUNT, AUTOMATED 103 10^3/uL (150-450); WHITE BLOOD COUNT 10.2 10^3/uL (4.0-10.0)
[2023-04-29 11:06] LABS: LIPASE 30 U/L (12-53)
[2023-04-29 11:08] LABS: ALBUMIN 3.4 G/DL (3.2-5.2); ALKALINE PHOSPHATASE 52 U/L (46-116); ALT/SGPT 25 U/L (7.0-40); AST/SGOT 46 U/L (<34); BILIRUBIN,DIRECT 0.3 MG/DL (<0.4); BILIRUBIN,TOTAL 0.5 MG/DL (0.3-1.2); BLOOD UREA NITROGEN 9 MG/DL (9-23); CARBON DIOXIDE LEVEL 20 MMOL/L (20-31); CHLORIDE LEVEL 99 MMOL/L (98-107); CREATININE FOR GFR 0.84 MG/DL (0.70-1.30); GLOMERULAR FILTRATION RATE > 60.0 (>49); GLUCOSE, FASTING 91 MG/DL (74-106); POTASSIUM SERUM 4.1 MMOL/L (3.5-5.1); SODIUM LEVEL 127 MMOL/L (136-145); TOTAL PROTEIN 6.3 G/DL (5.7-8.2)
[2023-04-29 11:10] LABS: THYROID STIMULATING HORMONE 1.292 uIU/ML (0.55-4.78)
[2023-04-29] MEDS ORDERED: OXAZEPAM 15MG CAP PO ONE (16:55)
[2023-04-29] MEDS ORDERED: LORazepam 2 MG/ML 1ML VIAL IV STA (18:17)
[2023-04-29] MEDS: NS 1,000 ML IV SCH (18:25)
[2023-04-29] MEDS ORDERED: MOM 30ML SUSPENSION UDC PO PRN (20:25)
[2023-04-29] MEDS ORDERED: LR 1,000 ML IV SCH (20:40)
[2023-04-29] MEDS: LORazepam 2 MG TAB PO PRN (21:15)
[2023-04-29] MEDS: DOCUSATE SODIUM 100MG CAPSULE PO SCH (21:15)
[2023-04-29] MEDS: THIAMINE 100 MG TAB PO SCH (21:15)
[2023-04-29] MEDS ORDERED: hydrALAZINE 20MG/ML 1ML VIAL IV PRN (21:35)
[2023-04-30] VITALS (21 sets, daily range): BP systolic 125–177; BP diastolic 69–94; TEMP 97.1–99.2; O2SAT 88–100
[2023-04-30] MEDS: NS 1,000 ML IV SCH (00:11)
[2023-04-30] MEDS ORDERED: GABA-1171 PO (00:44)
[2023-04-30] MEDS ORDERED: MOME50SP2 NARES (00:44)
[2023-04-30] MEDS ORDERED: DICL20GE TOP (00:44)
[2023-04-30] MEDS ORDERED: MAGN400T2 PO (00:44)
[2023-04-30] MEDS ORDERED: FENO160T10 PO (00:44)
[2023-04-30] MEDS ORDERED: ASPE4PAD TOP (00:44)
[2023-04-30] MEDS ORDERED: FOLI1TAB11 PO (00:44)
[2023-04-30] MEDS ORDERED: VITMTA PO (00:44)
[2023-04-30] MEDS ORDERED: ASPI-161 PO (00:44)
[2023-04-30] MEDS ORDERED: DULO60CA35 PO (00:44)
[2023-04-30] MEDS ORDERED: VITA-172 PO (00:44)
[2023-04-30] MEDS ORDERED: B-1100TA2 PO (00:44)
[2023-04-30] MEDS ORDERED: AMLO1TAB25 PO (00:44)
[2023-04-30] MEDS ORDERED: HOME MED LIST COMPLETE! XX SCH (00:45)
[2023-04-30] MEDS: OXAZEPAM 15MG CAP PO SCH ×4 (03:09→23:23)
[2023-04-30 06:24] LABS: HEMATOCRIT 32.8 % (42.0-52.0); HEMOGLOBIN 11.7 g/dl (13.5-17.5); MEAN CORPUSCULAR HEMOGLOBIN 34.9 pg (27.0-33.0); MEAN CORPUSCULAR HGB CONC 35.7 g/dl (32.0-36.5); MEAN CORPUSCULAR VOLUME 97.9 fl (80.0-96.0); RED BLOOD COUNT 3.35 10^6/uL (4.30-6.10)
[2023-04-30 06:47] LABS: ALBUMIN 2.8 G/DL (3.2-5.2); ALKALINE PHOSPHATASE 44 U/L (46-116); ALT/SGPT 21 U/L (7.0-40); AST/SGOT 38 U/L (<34); BILIRUBIN,TOTAL 0.7 MG/DL (0.3-1.2); BLOOD UREA NITROGEN 10 MG/DL (9-23); CALCIUM LEVEL 8.2 MG/DL (8.3-10.6); CARBON DIOXIDE LEVEL 20 MMOL/L (20-31); CHLORIDE LEVEL 102 MMOL/L (98-107); CREATININE FOR GFR 0.78 MG/DL (0.70-1.30); GLOMERULAR FILTRATION RATE > 60.0 (>49); GLUCOSE, FASTING 96 MG/DL (74-106); MAGNESIUM LEVEL 1.6 MG/DL (1.8-2.4); POTASSIUM SERUM 3.6 MMOL/L (3.5-5.1); SODIUM LEVEL 131 MMOL/L (136-145); TOTAL PROTEIN 5.4 G/DL (5.7-8.2)
[2023-04-30 07:04] LABS: PLATELET COUNT, AUTOMATED 89 10^3/uL (150-450)
[2023-04-30] MEDS ORDERED: MAG SULF 1GM/100ML (MAG RUN) 1 GM in IV 1 EA IV ONE (08:00)
[2023-04-30] MEDS ORDERED: atenoloL 25 MG TAB PO ONE (08:00)
[2023-04-30] MEDS: DOCUSATE SODIUM 100MG CAPSULE PO SCH ×3 (09:00→21:26)
[2023-04-30] MEDS ORDERED: ENOXAPARIN 40MG/0.4ML SYRINGE (J1650 PER 10MG) SC SCH (09:00)
[2023-04-30] MEDS: THIAMINE 100 MG TAB PO SCH ×2 (09:14→21:26)
[2023-04-30] MEDS: MAGNESIUM OXIDE 400MG TAB (MAG-OX) PO SCH ×2 (09:14→21:26)
[2023-04-30] MEDS: cloNIDine 0.1MG TABLET PO SCH ×4 (09:14→23:23)
[2023-04-30] MEDS: MULTIVITAMINS/MINERALS THERAP 1 TAB PO SCH (09:14)
[2023-04-30] MEDS: FOLIC ACID 1MG TAB PO SCH (09:15)
[2023-05-01] VITALS (10 sets, daily range): BP systolic 131–161; BP diastolic 67–100; TEMP 97.5–98.8; O2SAT 95–98
[2023-05-01] MEDS: cloNIDine 0.1MG TABLET PO SCH ×3 (06:00→18:01)
[2023-05-01] MEDS: OXAZEPAM 15MG CAP PO SCH ×3 (07:00→22:16)
[2023-05-01] MEDS: MULTIVITAMINS/MINERALS THERAP 1 TAB PO SCH (08:54)
[2023-05-01] MEDS: MAGNESIUM OXIDE 400MG TAB (MAG-OX) PO SCH ×2 (08:55→20:27)
[2023-05-01] MEDS: THIAMINE 100 MG TAB PO SCH ×2 (08:55→20:27)
[2023-05-01] MEDS: DOCUSATE SODIUM 100MG CAPSULE PO SCH ×2 (08:55→20:27)
[2023-05-01] MEDS: FOLIC ACID 1MG TAB PO SCH (08:55)
[2023-05-01] MEDS ORDERED: atenoloL 25 MG TAB PO SCH (21:00)
[2023-05-01] MEDS: POTASSIUM CHLORIDE 10MEQ SR TABLET PO SCH (21:49)
[2023-05-01] MEDS ORDERED: MAG SULF 1GM/100ML (MAG RUN) 1 GM in IV 1 EA IV ONE (22:00)
[2023-05-01 22:51] LABS: ALBUMIN 2.9 G/DL (3.2-5.2); ALKALINE PHOSPHATASE 49 U/L (46-116); ALT/SGPT 29 U/L (7.0-40); AST/SGOT 58 U/L (<34); BILIRUBIN,TOTAL 0.6 MG/DL (0.3-1.2); BLOOD UREA NITROGEN 16 MG/DL (9-23); CALCIUM LEVEL 8.8 MG/DL (8.3-10.6); CARBON DIOXIDE LEVEL 21 MMOL/L (20-31); CHLORIDE LEVEL 102 MMOL/L (98-107); CREATININE FOR GFR 0.78 MG/DL (0.70-1.30); GLOMERULAR FILTRATION RATE > 60.0 (>49); GLUCOSE, FASTING 114 MG/DL (74-106); SODIUM LEVEL 132 MMOL/L (136-145); TOTAL PROTEIN 5.7 G/DL (5.7-8.2)
[2023-05-02] VITALS (7 sets, daily range): BP systolic 124–154; BP diastolic 73–89; TEMP 97.9–98.6; O2SAT 94–97
[2023-05-02] MEDS: LORazepam 2 MG TAB PO PRN (06:05)
[2023-05-02] MEDS: OXAZEPAM 15MG CAP PO SCH ×3 (06:06→22:10)
[2023-05-02 06:40] LABS: INR 1.2; PROTHROMBIN TIME 14.8 SECONDS (12.5-14.5)
[2023-05-02 06:41] LABS: PARTIAL THROMBOPLASTIN TIME 31.2 SECONDS (24.8-34.2)
[2023-05-02 06:58] LABS: ALBUMIN 2.9 G/DL (3.2-5.2); ALKALINE PHOSPHATASE 49 U/L (46-116); ALT/SGPT 36 U/L (7.0-40); AST/SGOT 69 U/L (<34); BILIRUBIN,TOTAL 0.7 MG/DL (0.3-1.2); BLOOD UREA NITROGEN 15 MG/DL (9-23); CALCIUM LEVEL 8.8 MG/DL (8.3-10.6); CARBON DIOXIDE LEVEL 23 MMOL/L (20-31); CHLORIDE LEVEL 104 MMOL/L (98-107); GLOMERULAR FILTRATION RATE > 60.0 (>49); GLUCOSE, FASTING 99 MG/DL (74-106); MAGNESIUM LEVEL 2.1 MG/DL (1.8-2.4); POTASSIUM SERUM 3.1 MMOL/L (3.5-5.1); SODIUM LEVEL 134 MMOL/L (136-145); TOTAL PROTEIN 5.8 G/DL (5.7-8.2)
[2023-05-02] MEDS: DOCUSATE SODIUM 100MG CAPSULE PO SCH ×2 (09:00→20:37)
[2023-05-02] MEDS ORDERED: POTASSIUM CHLORIDE 10MEQ SR TABLET PO ONE (09:45)
[2023-05-02] MEDS: FOLIC ACID 1MG TAB PO SCH (10:18)
[2023-05-02] MEDS: THIAMINE 100 MG TAB PO SCH (10:18)
[2023-05-02] MEDS: MAGNESIUM OXIDE 400MG TAB (MAG-OX) PO SCH ×2 (10:19→20:37)
[2023-05-02] MEDS: MULTIVITAMINS/MINERALS THERAP 1 TAB PO SCH (10:20)
[2023-05-02 11:25] LABS: ABG BASE EXCESS -0.8 (-2.0-2.0); ABG O2 SATURATION 96.5 % (95.0-99.0); ABG PARTIAL PRESSURE O2 78.4 mmHg (75.0-100.0); ABG STANDARD HCO3 23.8 MMOL/L. (22.0-26.0); ABG TOTAL CO2 21.8 MMOL/L (23.0-31.0); ABG pH (ARTERIAL) 7.508 UNITS (7.350-7.450)
[2023-05-02] MEDS ORDERED: **hydrALAZINE** 10 MG TAB PO PRN (16:55)
[2023-05-02] MEDS: LACTULOSE 20GM/30ML SYRUP UDC PO SCH ×2 (16:59→17:51)
[2023-05-02] MEDS ORDERED: LACTULOSE 20GM/30ML SYRUP UDC PR ONE (17:00)
[2023-05-02] MEDS: POTASSIUM CHLORIDE 10MEQ SR TABLET PO SCH (20:37)
[2023-05-03 00:38] LABS: BLOOD UREA NITROGEN 13 MG/DL (9-23); CALCIUM LEVEL 9.4 MG/DL (8.3-10.6); CARBON DIOXIDE LEVEL 24 MMOL/L (20-31); CHLORIDE LEVEL 108 MMOL/L (98-107); CREATININE FOR GFR 0.84 MG/DL (0.70-1.30); GLOMERULAR FILTRATION RATE > 60.0 (>49); GLUCOSE, FASTING 115 MG/DL (74-106); MAGNESIUM LEVEL 2.2 MG/DL (1.8-2.4); POTASSIUM SERUM 3.4 MMOL/L (3.5-5.1); SODIUM LEVEL 137 MMOL/L (136-145)
[2023-05-03] MEDS: CEFEPIME HCL 1 GM in D5W MINI-BAG PLUS 50 ML IV SCH ×2 (01:34→15:25)
[2023-05-03 05:02] VITALS: BP 130/86; TEMP 98.1; O2SAT 96
[2023-05-03 06:00] VITALS: BP 127/82
[2023-05-03] MEDS: OXAZEPAM 15MG CAP PO SCH ×3 (06:09→22:56)
[2023-05-03 06:34] LABS: BLOOD UREA NITROGEN 15 MG/DL (9-23); CARBON DIOXIDE LEVEL 20 MMOL/L (20-31); CHLORIDE LEVEL 110 MMOL/L (98-107); CREATININE FOR GFR 0.76 MG/DL (0.70-1.30); GLOMERULAR FILTRATION RATE > 60.0 (>49); GLUCOSE, FASTING 111 MG/DL (74-106); POTASSIUM SERUM 3.8 MMOL/L (3.5-5.1); SODIUM LEVEL 140 MMOL/L (136-145)
[2023-05-03] MEDS: DOCUSATE SODIUM 100MG CAPSULE PO SCH ×2 (08:19→21:25)
[2023-05-03] MEDS: MULTIVITAMINS/MINERALS THERAP 1 TAB PO SCH (08:20)
[2023-05-03] MEDS: FOLIC ACID 1MG TAB PO SCH (08:20)
[2023-05-03] MEDS: MAGNESIUM OXIDE 400MG TAB (MAG-OX) PO SCH ×2 (08:20→21:23)
[2023-05-03] MEDS: atenoloL 50 MG TAB PO SCH (08:21)
[2023-05-03 21:00] VITALS: BP 124/76; TEMP 98.1; O2SAT 97
[2023-05-03 21:12] VITALS: BP 124/76
[2023-05-03] MEDS: POTASSIUM CHLORIDE 10MEQ SR TABLET PO SCH (21:23)
[2023-05-03 21:30] VITALS: BP 124/76
[2023-05-04] MEDS: CEFEPIME HCL 1 GM in D5W MINI-BAG PLUS 50 ML IV SCH (02:20)
[2023-05-04 05:47] VITALS: BP 136/81; TEMP 98.4; O2SAT 95
[2023-05-04 06:00] VITALS: BP 136/81
[2023-05-04] MEDS: OXAZEPAM 15MG CAP PO SCH ×3 (06:51→22:55)
[2023-05-04] MEDS ORDERED: LACTULOSE 20GM/30ML SYRUP UDC PO ONE (08:15)
[2023-05-04] MEDS: LACTOBACILLUS ACIDOPHILUS CAP (BACID) PO SCH ×3 (08:46→17:29)
[2023-05-04] MEDS: FOLIC ACID 1MG TAB PO SCH (08:46)
[2023-05-04] MEDS: MULTIVITAMINS/MINERALS THERAP 1 TAB PO SCH (08:47)
[2023-05-04] MEDS: DOCUSATE SODIUM 100MG CAPSULE PO SCH ×2 (08:47→21:22)
[2023-05-04] MEDS: MAGNESIUM OXIDE 400MG TAB (MAG-OX) PO SCH ×2 (08:47→21:22)
[2023-05-04] MEDS: atenoloL 50 MG TAB PO SCH (08:48)
[2023-05-04] MEDS: LevoFLOXacin 750 MG TABLET PO SCH (08:48)
[2023-05-04] MEDS: LACTULOSE 20GM/30ML SYRUP UDC PO SCH ×2 (16:09→17:30)
[2023-05-04] MEDS ORDERED: LACTULOSE 20GM/30ML SYRUP UDC PO SCH (17:00)
[2023-05-04] MEDS ORDERED: oxyCODONE 5MG TAB PO ONE (18:45)
[2023-05-04] MEDS: POTASSIUM CHLORIDE 10MEQ SR TABLET PO SCH (21:22)
[2023-05-05 06:00] VITALS: BP 116/76; TEMP 97.5; O2SAT 93
[2023-05-05] MEDS: LevoFLOXacin 750 MG TABLET PO SCH (06:16)
[2023-05-05] MEDS: OXAZEPAM 15MG CAP PO SCH ×3 (06:26→23:11)
[2023-05-05] MEDS: atenoloL 50 MG TAB PO SCH (09:00)
[2023-05-05] MEDS: DOCUSATE SODIUM 100MG CAPSULE PO SCH ×2 (09:00→21:11)
[2023-05-05] MEDS: MULTIVITAMINS/MINERALS THERAP 1 TAB PO SCH (09:36)
[2023-05-05] MEDS: MAGNESIUM OXIDE 400MG TAB (MAG-OX) PO SCH ×2 (09:36→21:10)
[2023-05-05] MEDS: LACTOBACILLUS ACIDOPHILUS CAP (BACID) PO SCH ×3 (09:36→17:41)
[2023-05-05] MEDS: FOLIC ACID 1MG TAB PO SCH (09:36)
[2023-05-05] MEDS ORDERED: PENI500T PO (12:22)
[2023-05-05] MEDS ORDERED: BACI1CAP PO (12:22)
[2023-05-05] MEDS ORDERED: ATEN50TA2 PO (12:22)
[2023-05-05] MEDS ORDERED: OXAZ15CA4 PO (12:22)
[2023-05-05] MEDS ORDERED: LEVO1TAB40 PO (12:22)
[2023-05-05] MEDS ORDERED: OXAZ10CA3 PO (12:27)
[2023-05-05] MEDS: PENICILLIN V POTASSIUM 500 MG TAB PO SCH ×3 (15:26→21:11)
[2023-05-05] MEDS: POTASSIUM CHLORIDE 10MEQ SR TABLET PO SCH (21:10)
[2023-05-06] MEDS: LevoFLOXacin 750 MG TABLET PO SCH (06:08)
[2023-05-06 06:16] VITALS: BP 106/71; TEMP 97.9; O2SAT 97
[2023-05-06] MEDS: OXAZEPAM 15MG CAP PO SCH ×3 (07:00→22:08)
[2023-05-06] MEDS: atenoloL 50 MG TAB PO SCH (09:00)
[2023-05-06] MEDS: MULTIVITAMINS/MINERALS THERAP 1 TAB PO SCH (09:07)
[2023-05-06] MEDS: FOLIC ACID 1MG TAB PO SCH (09:07)
[2023-05-06] MEDS: MAGNESIUM OXIDE 400MG TAB (MAG-OX) PO SCH ×2 (09:07→22:08)
[2023-05-06] MEDS: DOCUSATE SODIUM 100MG CAPSULE PO SCH ×2 (09:07→22:08)
[2023-05-06] MEDS: PENICILLIN V POTASSIUM 500 MG TAB PO SCH ×4 (09:07→22:08)
[2023-05-06] MEDS: LACTOBACILLUS ACIDOPHILUS CAP (BACID) PO SCH ×3 (09:07→17:19)
[2023-05-06] MEDS: POTASSIUM CHLORIDE 10MEQ SR TABLET PO SCH (22:08)
[2023-05-06] MEDS: LIDOCAINE 5% (LIDODERM) PATCH TD SCH (22:45)
[2023-05-07] MEDS: LevoFLOXacin 750 MG TABLET PO SCH (05:47)
[2023-05-07] MEDS: OXAZEPAM 15MG CAP PO SCH ×3 (05:47→21:43)
[2023-05-07 06:00] VITALS: BP 135/75; TEMP 97.9; O2SAT 98
[2023-05-07] MEDS: FOLIC ACID 1MG TAB PO SCH (08:32)
[2023-05-07] MEDS: MULTIVITAMINS/MINERALS THERAP 1 TAB PO SCH (08:32)
[2023-05-07] MEDS: LACTOBACILLUS ACIDOPHILUS CAP (BACID) PO SCH ×3 (08:32→17:03)
[2023-05-07] MEDS: DOCUSATE SODIUM 100MG CAPSULE PO SCH ×2 (08:32→21:44)
[2023-05-07] MEDS: PENICILLIN V POTASSIUM 500 MG TAB PO SCH ×4 (08:32→21:44)
[2023-05-07] MEDS: atenoloL 50 MG TAB PO SCH (08:33)
[2023-05-07] MEDS: MAGNESIUM OXIDE 400MG TAB (MAG-OX) PO SCH ×2 (08:33→21:44)
[2023-05-07] MEDS ORDERED: ACETAMINOPHEN TAB 650MG DOSE (2X325MG) PO PRN (18:20)
[2023-05-07] MEDS: POTASSIUM CHLORIDE 10MEQ SR TABLET PO SCH (21:46)
[2023-05-07] MEDS: LIDOCAINE 5% (LIDODERM) PATCH TD SCH (21:46)
[2023-05-08] MEDS ORDERED: oxyCODONE 5MG TAB PO PRN ×2 (01:50)
[2023-05-08 06:00] VITALS: BP 134/82; TEMP 97.5; O2SAT 99
[2023-05-08] MEDS: LevoFLOXacin 750 MG TABLET PO SCH (06:02)
[2023-05-08] MEDS: OXAZEPAM 15MG CAP PO SCH ×3 (06:03→23:17)
[2023-05-08] MEDS: PENICILLIN V POTASSIUM 500 MG TAB PO SCH ×4 (08:35→20:54)
[2023-05-08] MEDS: LACTOBACILLUS ACIDOPHILUS CAP (BACID) PO SCH ×3 (08:35→17:50)
[2023-05-08] MEDS: MULTIVITAMINS/MINERALS THERAP 1 TAB PO SCH (08:36)
[2023-05-08] MEDS: DOCUSATE SODIUM 100MG CAPSULE PO SCH ×2 (08:36→20:53)
[2023-05-08] MEDS: FOLIC ACID 1MG TAB PO SCH (08:36)
[2023-05-08] MEDS: MAGNESIUM OXIDE 400MG TAB (MAG-OX) PO SCH ×2 (08:36→20:53)
[2023-05-08] MEDS: atenoloL 50 MG TAB PO SCH (08:36)
[2023-05-08] MEDS: POTASSIUM CHLORIDE 10MEQ SR TABLET PO SCH (20:51)
[2023-05-08] MEDS: LIDOCAINE 5% (LIDODERM) PATCH TD SCH (20:54)
[2023-05-09 04:22] VITALS: BP 125/69; TEMP 97.5; O2SAT 98
[2023-05-09] MEDS: LevoFLOXacin 750 MG TABLET PO SCH (06:20)
[2023-05-09] MEDS: OXAZEPAM 15MG CAP PO SCH (06:21)
[2023-05-09] MEDS: LACTOBACILLUS ACIDOPHILUS CAP (BACID) PO SCH (08:46)
[2023-05-09] MEDS: PENICILLIN V POTASSIUM 500 MG TAB PO SCH (08:46)
[2023-05-09] MEDS: FOLIC ACID 1MG TAB PO SCH (08:46)
[2023-05-09] MEDS: MAGNESIUM OXIDE 400MG TAB (MAG-OX) PO SCH (08:46)
[2023-05-09] MEDS: DOCUSATE SODIUM 100MG CAPSULE PO SCH (08:46)
[2023-05-09] MEDS: MULTIVITAMINS/MINERALS THERAP 1 TAB PO SCH (08:46)
[2023-05-09 08:47] VITALS: BP 117/74
[2023-05-09] MEDS: atenoloL 50 MG TAB PO SCH (08:47)
[2023-05-10] MEDS ORDERED: ATEN50TA2 PO (21:24)
[2023-05-10] MEDS ORDERED: LEVO1TAB40 PO (21:24)
[2023-05-10] MEDS ORDERED: PENI500T PO (21:24)
== END 2023-05-09 13:09 | disposition left against medical advice (07) | DRG 770 ==
LOC: EDBD 10:04 → M ED 10:04 → M ED INP 20:24 → M PCU 04-30 00:05 → M MSPAV 05-01 15:15
PROVIDERS: ADMIT Family Medicine; ATTEND General Practice
DX: F10.239 Alcohol dependence with withdrawal, unspecified (principal); G93.40 Encephalopathy, unspecified; E87.1 Hypo-osmolality and hyponatremia; I47.10 Supraventricular tachycardia, unspecified; G62.1 Alcoholic polyneuropathy; K70.0 Alcoholic fatty liver; K76.82 Hepatic encephalopathy; K70.9 Alcoholic liver disease, unspecified; N31.9 Neuromuscular dysfunction of bladder, unspecified; T83.511A Infection and inflammatory reaction due to indwelling urethral catheter, initial encounter; D53.9 Nutritional anemia, unspecified; E78.5 Hyperlipidemia, unspecified; E87.6 Hypokalemia; F32.A Depression, unspecified; G89.29 Other chronic pain; I10 Essential (primary) hypertension; I16.0 Hypertensive urgency; K21.9 Gastro-esophageal reflux disease without esophagitis; M54.9 Dorsalgia, unspecified; N39.0 Urinary tract infection, site not specified; N40.0 Benign prostatic hyperplasia without lower urinary tract symptoms; R29.6 Repeated falls; R41.89 Other symptoms and signs involving cognitive functions and awareness; Z91.119 Patient's noncompliance with dietary regimen due to unspecified reason; K64.8 Other hemorrhoids; Z79.899 Other long term (current) drug therapy; Y84.6 Urinary catheterization as the cause of abnormal reaction of the patient, or of later complication, without mention of misadventure at the time of the procedure

== ENCOUNTER 2023-05-10 17:54 | Observation (INO) | payer BC ==
[~2023-05-10] VITALS: Ht 167.6 cm; Wt 72.4 kg
[~2023-05-10 17:54] MED LIST changes: +ASPE4PAD TOP; +ASPI-161 PO; +ATEN50TA2 PO; +B-1100TA2 PO; +BACI1CAP PO; +DICL20GE TOP; +DULO60CA35 PO; +GABA-1171 PO; +OXAZ15CA4 PO; +PENI500T PO; +VITA-172 PO
[2023-05-10 18:57] LABS: BASO # 0.1 10^3/uL (0.0-0.2); BASO % 0.5 % (0.0-1.0); EOS # 0.1 10^3/uL (0.0-0.5); EOS % 0.4 % (0.0-3.0); HEMATOCRIT 36.5 % (42.0-52.0); HEMOGLOBIN 12.7 g/dl (13.5-17.5); LYMPH # 0.9 10^3/uL (1.5-5.0); LYMPH % 7.6 % (24.0-44.0); MEAN CORPUSCULAR HEMOGLOBIN 34.2 pg (27.0-33.0); MEAN CORPUSCULAR HGB CONC 34.8 g/dl (32.0-36.5); MEAN CORPUSCULAR VOLUME 98.4 fl (80.0-96.0); MONO # 1.3 10^3/uL (0.0-0.8); MONO % 10.6 % (2.0-8.0); NEUTROPHILS # 9.7 10^3/uL (1.5-8.5); NEUTROPHILS % 78.6 % (36.0-66.0); PLATELET COUNT, AUTOMATED 599 10^3/uL (150-450); RED BLOOD COUNT 3.71 10^6/uL (4.30-6.10); WHITE BLOOD COUNT 12.3 10^3/uL (4.0-10.0)
[2023-05-10 19:33] LABS: RSV AMPLIFICATION NEGATIVE (NEGATIVE)
[2023-05-10] MEDS ORDERED: PERCOCET 5MG/325MG TAB PO ONE (20:10)
[2023-05-10 20:18] LABS: ETHYL ALCOHOL (ETHANOL) 0.054 % (0.000-0.010)
[2023-05-10 20:20] LABS: ALKALINE PHOSPHATASE 80 U/L (46-116); ALT/SGPT 55 U/L (7.0-40); AST/SGOT 45 U/L (<34); BILIRUBIN,DIRECT 0.2 MG/DL (<0.4); BILIRUBIN,TOTAL 0.5 MG/DL (0.3-1.2); BLOOD UREA NITROGEN 8 MG/DL (9-23); CALCIUM LEVEL 9.3 MG/DL (8.3-10.6); CARBON DIOXIDE LEVEL 22 MMOL/L (20-31); CHLORIDE LEVEL 100 MMOL/L (98-107); GLOMERULAR FILTRATION RATE > 60.0 (>49); GLUCOSE, FASTING 87 MG/DL (74-106); POTASSIUM SERUM 4.1 MMOL/L (3.5-5.1); SODIUM LEVEL 131 MMOL/L (136-145)
[2023-05-10] MEDS ORDERED: LevoFLOXacin 750 MG TABLET PO ONE (20:50)
[2023-05-10] MEDS ORDERED: PENICILLIN V POTASSIUM 500 MG TAB PO ONE (20:50)
[2023-05-10] MEDS ORDERED: LORazepam 2 MG TAB PO PRN ×2 (21:05→23:50)
[2023-05-10] MEDS ORDERED: PENI500T PO (21:24)
[2023-05-10] MEDS ORDERED: LEVO1TAB40 PO (21:24)
[2023-05-10] MEDS ORDERED: ATEN50TA2 PO (21:24)
[2023-05-10] MEDS ORDERED: HOME MED LIST COMPLETE! XX SCH (21:25)
[2023-05-10 23:49] VITALS: BP 102/66; TEMP 97.9; O2SAT 99
[2023-05-10] MEDS ORDERED: MAALOX 30 ML SUSP *UDC PO PRN (23:50)
[2023-05-10] MEDS ORDERED: MOM 30ML SUSPENSION UDC PO PRN (23:50)
[2023-05-11] VITALS: BP 102/66
[2023-05-11] MEDS: OXAZEPAM 15MG CAP PO SCH ×5 (00:37→23:52)
[2023-05-11] MEDS: ACETAMINOPHEN TAB 650MG DOSE (2X325MG) PO PRN ×2 (01:29→10:29)
[2023-05-11 02:17] LABS: APPEARANCE, URINE HAZY (CLEAR); BACTERIA, URINE AUTO NEGATIVE (NEGATIVE); BILIRUBIN, URINE AUTO NEGATIVE (NEGATIVE); BLOOD, URINE BLOOD NEGATIVE (NEGATIVE); COLOR, URINE YELLOW (YELLOW); GLUCOSE, URINE (UA) AUTO NEGATIVE (NEGATIVE); KETONE, URINE AUTO NEGATIVE (NEGATIVE); LEUKOCYTE ESTERASE, URINE AUTO 2+ (NEGATIVE); MUCUS, URINE SMALL (NEGATIVE); NITRITE, URINE AUTO NEGATIVE (NEGATIVE); PROTEIN, URINE AUTO NEGATIVE (NEGATIVE); RBC, URINE AUTO 0 /HPF (0-3); SPECIFIC GRAVITY URINE AUTO 1.017 (1.002-1.035); SQUAMOUS EPITHELIAL CELL UR AU 0 /HPF (0-6); UROBILINOGEN, URINE AUTO 0.2 mg/dL (0.0-2.0); WBC, URINE AUTO 34 /HPF (0-3)
[2023-05-11] MEDS: LevoFLOXacin 750 MG TABLET PO SCH (05:16)
[2023-05-11 05:51] LABS: HEMOGLOBIN 11.7 g/dl (13.5-17.5); MEAN CORPUSCULAR HEMOGLOBIN 33.9 pg (27.0-33.0); MEAN CORPUSCULAR HGB CONC 34.4 g/dl (32.0-36.5); MEAN CORPUSCULAR VOLUME 98.6 fl (80.0-96.0); PLATELET COUNT, AUTOMATED 557 10^3/uL (150-450); RED BLOOD COUNT 3.45 10^6/uL (4.30-6.10); WHITE BLOOD COUNT 10.4 10^3/uL (4.0-10.0)
[2023-05-11 06:00] VITALS: BP 103/64
[2023-05-11 06:26] LABS: ALBUMIN 2.7 G/DL (3.2-5.2); ALKALINE PHOSPHATASE 77 U/L (46-116); ALT/SGPT 46 U/L (7.0-40); AST/SGOT 32 U/L (<34); BILIRUBIN,TOTAL 0.7 MG/DL (0.3-1.2); BLOOD UREA NITROGEN 9 MG/DL (9-23); CALCIUM LEVEL 9.6 MG/DL (8.3-10.6); CARBON DIOXIDE LEVEL 24 MMOL/L (20-31); CHLORIDE LEVEL 98 MMOL/L (98-107); CREATININE FOR GFR 0.87 MG/DL (0.70-1.30); GLOMERULAR FILTRATION RATE > 60.0 (>49); GLUCOSE, FASTING 90 MG/DL (74-106); POTASSIUM SERUM 4.5 MMOL/L (3.5-5.1); SODIUM LEVEL 128 MMOL/L (136-145)
[2023-05-11] MEDS ORDERED: THIAMINE 100 MG TAB PO SCH (09:00)
[2023-05-11] MEDS ORDERED: FOLIC ACID 1MG TAB PO SCH (09:00)
[2023-05-11] MEDS: amLODIPine 5 MG TAB PO SCH (09:00)
[2023-05-11] MEDS: FLUTICASONE PROP 0.05% NASAL SPRAY 16 GM (FLONASE) NARES SCH ×2 (09:00→20:15)
[2023-05-11] MEDS ORDERED: MULTIVITAMINS/MINERALS THERAP 1 TAB PO SCH (09:00)
[2023-05-11] MEDS: atenoloL 50 MG TAB PO SCH (09:00)
[2023-05-11 10:11] VITALS: BP 102/64
[2023-05-11] MEDS: SODIUM CHLORIDE 1 GM TAB PO SCH ×3 (10:13→20:15)
[2023-05-11] MEDS: PENICILLIN V POTASSIUM 500 MG TAB PO SCH ×4 (10:14→20:15)
[2023-05-11] MEDS: DOCUSATE SODIUM 100MG CAPSULE PO SCH ×2 (10:14→20:16)
[2023-05-11] MEDS: OMEPRAZOLE 20MG CAP PO SCH (10:14)
[2023-05-11] MEDS: CYANOCOBALAMIN 500 MCG TAB PO SCH (10:14)
[2023-05-11] MEDS: LACTOBACILLUS ACIDOPHILUS CAP (BACID) PO SCH (10:14)
[2023-05-11] MEDS: DULoxetine 30MG CAPSULE (CYMBALTA) PO SCH (10:14)
[2023-05-11] MEDS: FOLIC ACID 1MG TAB PO SCH (10:14)
[2023-05-11] MEDS: MAGNESIUM OXIDE 400MG TAB (MAG-OX) PO SCH (10:15)
[2023-05-11] MEDS: MULTIVITAMINS/MINERALS THERAP 1 TAB PO SCH (10:15)
[2023-05-11] MEDS: MONTELUKAST 10 MG TAB PO SCH (10:15)
[2023-05-11] MEDS: THIAMINE 100 MG TAB PO SCH ×2 (10:15→20:15)
[2023-05-11] MEDS: LIDOCAINE 5% (LIDODERM) PATCH TD SCH (10:16)
[2023-05-11 12:32] VITALS: BP 107/65
[2023-05-11] MEDS ORDERED: MORPHINE 2 MG/ML 1ML VIAL IV PRN (12:45)
[2023-05-11] MEDS ORDERED: ONDANSETRON 4MG 2ML VIAL IV PRN (13:50)
[2023-05-11 14:00] VITALS: BP 106/66; TEMP 97.7; O2SAT 98
[2023-05-11] MEDS ORDERED: DIAPER RELIEF PASTE (DESITIN) 60GM TOP SCH (17:00)
[2023-05-11] MEDS: GABAPENTIN 100 MG CAP PO SCH (20:15)
[2023-05-11] MEDS: NYSTATIN 100,000 UNITS/GM TOPICAL PWD 15GM TOP SCH (20:15)
[2023-05-11] MEDS: FENOFIBRATE 145MG TABLET (TRICOR) PO SCH (20:15)
[2023-05-11] MEDS: oxyCODONE 5MG TAB PO PRN (20:42)
[2023-05-11 22:00] VITALS: BP 126/75; TEMP 97; O2SAT 95
[2023-05-12] MEDS: LevoFLOXacin 750 MG TABLET PO SCH (05:54)
[2023-05-12] MEDS: OXAZEPAM 15MG CAP PO SCH ×3 (05:54→21:13)
[2023-05-12 06:00] VITALS: BP 121/74; TEMP 98.1; O2SAT 95
[2023-05-12 08:05] LABS: BLOOD UREA NITROGEN 6 MG/DL (9-23); CARBON DIOXIDE LEVEL 26 MMOL/L (20-31); CHLORIDE LEVEL 103 MMOL/L (98-107); CREATININE FOR GFR 0.73 MG/DL (0.70-1.30); GLOMERULAR FILTRATION RATE > 60.0 (>49); GLUCOSE, FASTING 95 MG/DL (74-106); MAGNESIUM LEVEL 1.8 MG/DL (1.8-2.4); POTASSIUM SERUM 4.4 MMOL/L (3.5-5.1); SODIUM LEVEL 135 MMOL/L (136-145)
[2023-05-12 08:53] VITALS: BP 117/74
[2023-05-12] MEDS: FLUTICASONE PROP 0.05% NASAL SPRAY 16 GM (FLONASE) NARES SCH ×2 (08:53→21:13)
[2023-05-12] MEDS: LIDOCAINE 5% (LIDODERM) PATCH TD SCH (08:53)
[2023-05-12] MEDS: amLODIPine 5 MG TAB PO SCH (08:54)
[2023-05-12] MEDS: CYANOCOBALAMIN 500 MCG TAB PO SCH (08:54)
[2023-05-12] MEDS: DOCUSATE SODIUM 100MG CAPSULE PO SCH ×2 (08:54→21:00)
[2023-05-12] MEDS: MULTIVITAMINS/MINERALS THERAP 1 TAB PO SCH (08:56)
[2023-05-12] MEDS: FOLIC ACID 1MG TAB PO SCH (08:56)
[2023-05-12] MEDS: PENICILLIN V POTASSIUM 500 MG TAB PO SCH ×4 (08:56→21:13)
[2023-05-12] MEDS: LACTOBACILLUS ACIDOPHILUS CAP (BACID) PO SCH (08:56)
[2023-05-12] MEDS: OMEPRAZOLE 20MG CAP PO SCH (08:56)
[2023-05-12] MEDS: MAGNESIUM OXIDE 400MG TAB (MAG-OX) PO SCH (08:57)
[2023-05-12] MEDS: THIAMINE 100 MG TAB PO SCH ×2 (08:57→21:13)
[2023-05-12] MEDS: MONTELUKAST 10 MG TAB PO SCH (08:57)
[2023-05-12] MEDS: DULoxetine 30MG CAPSULE (CYMBALTA) PO SCH (08:57)
[2023-05-12] MEDS: ACETAMINOPHEN TAB 650MG DOSE (2X325MG) PO PRN ×2 (08:58→18:37)
[2023-05-12] MEDS: atenoloL 50 MG TAB PO SCH (08:58)
[2023-05-12] MEDS: NYSTATIN 100,000 UNITS/GM TOPICAL PWD 15GM TOP SCH ×2 (08:59→21:14)
[2023-05-12 13:03] LABS: BLOOD UREA NITROGEN 6 MG/DL (9-23); CALCIUM LEVEL 9.4 MG/DL (8.3-10.6); CARBON DIOXIDE LEVEL 30 MMOL/L (20-31); CHLORIDE LEVEL 100 MMOL/L (98-107); CREATININE FOR GFR 0.84 MG/DL (0.70-1.30); GLOMERULAR FILTRATION RATE > 60.0 (>49); GLUCOSE, FASTING 90 MG/DL (74-106); POTASSIUM SERUM 5.7 MMOL/L (3.5-5.1); SODIUM LEVEL 132 MMOL/L (136-145)
[2023-05-12 14:00] VITALS: BP 119/74; TEMP 97.7; O2SAT 99
[2023-05-12 21:12] VITALS: BP 126/71; TEMP 97; O2SAT 99
[2023-05-12] MEDS: FENOFIBRATE 145MG TABLET (TRICOR) PO SCH (21:13)
[2023-05-12] MEDS: GABAPENTIN 100 MG CAP PO SCH (21:13)
[2023-05-13 05:13] VITALS: BP 123/74; TEMP 97.7; O2SAT 97
[2023-05-13] MEDS: LevoFLOXacin 750 MG TABLET PO SCH (05:34)
[2023-05-13] MEDS: OXAZEPAM 15MG CAP PO SCH (05:35)
[2023-05-13] MEDS: oxyCODONE 5MG TAB PO PRN ×3 (05:35→14:08)
[2023-05-13 06:03] LABS: HEMATOCRIT 34.9 % (42.0-52.0); HEMOGLOBIN 11.8 g/dl (13.5-17.5); MEAN CORPUSCULAR HEMOGLOBIN 33.6 pg (27.0-33.0); MEAN CORPUSCULAR HGB CONC 33.8 g/dl (32.0-36.5); MEAN CORPUSCULAR VOLUME 99.4 fl (80.0-96.0); PLATELET COUNT, AUTOMATED 555 10^3/uL (150-450); RED BLOOD COUNT 3.51 10^6/uL (4.30-6.10); WHITE BLOOD COUNT 6.3 10^3/uL (4.0-10.0)
[2023-05-13 06:34] LABS: BLOOD UREA NITROGEN 6 MG/DL (9-23); CALCIUM LEVEL 9.2 MG/DL (8.3-10.6); CARBON DIOXIDE LEVEL 28 MMOL/L (20-31); CHLORIDE LEVEL 101 MMOL/L (98-107); CREATININE FOR GFR 0.85 MG/DL (0.70-1.30); GLOMERULAR FILTRATION RATE > 60.0 (>49); GLUCOSE, FASTING 86 MG/DL (74-106); POTASSIUM SERUM 4.6 MMOL/L (3.5-5.1); SODIUM LEVEL 135 MMOL/L (136-145)
[2023-05-13] MEDS: MONTELUKAST 10 MG TAB PO SCH (08:21)
[2023-05-13] MEDS: LACTOBACILLUS ACIDOPHILUS CAP (BACID) PO SCH (08:21)
[2023-05-13] MEDS: OMEPRAZOLE 20MG CAP PO SCH (08:21)
[2023-05-13] MEDS: MULTIVITAMINS/MINERALS THERAP 1 TAB PO SCH (08:21)
[2023-05-13] MEDS: DULoxetine 30MG CAPSULE (CYMBALTA) PO SCH (08:21)
[2023-05-13 08:22] VITALS: BP 108/69
[2023-05-13] MEDS: atenoloL 50 MG TAB PO SCH (08:22)
[2023-05-13] MEDS: DOCUSATE SODIUM 100MG CAPSULE PO SCH (08:22)
[2023-05-13] MEDS: amLODIPine 5 MG TAB PO SCH (08:22)
[2023-05-13] MEDS: THIAMINE 100 MG TAB PO SCH (08:22)
[2023-05-13] MEDS: MAGNESIUM OXIDE 400MG TAB (MAG-OX) PO SCH (08:23)
[2023-05-13] MEDS: CYANOCOBALAMIN 500 MCG TAB PO SCH (08:23)
[2023-05-13] MEDS: LIDOCAINE 5% (LIDODERM) PATCH TD SCH (08:23)
[2023-05-13] MEDS: FOLIC ACID 1MG TAB PO SCH (08:23)
[2023-05-13] MEDS: PENICILLIN V POTASSIUM 500 MG TAB PO SCH ×2 (08:23→11:43)
[2023-05-13] MEDS: FLUTICASONE PROP 0.05% NASAL SPRAY 16 GM (FLONASE) NARES SCH (08:24)
[2023-05-13] MEDS: NYSTATIN 100,000 UNITS/GM TOPICAL PWD 15GM TOP SCH (08:25)
[2023-05-13] MEDS ORDERED: ENOXAPARIN 40MG/0.4ML SYRINGE (J1650 PER 10MG) SC SCH (09:00)
[2023-05-13] MEDS ORDERED: OXAZ10CA3 PO (10:46)
[2023-05-13] MEDS ORDERED: OXAZEPAM 15MG CAP PO SCH (18:00)
== END 2023-05-13 14:38 ==
LOC: M ED 17:54 → EDBD 17:54 → INTOOBSV 23:05 → M ED INP 23:05 → M MSPAV 23:49
PROVIDERS: ADMIT Internal Medicine; ATTEND Internal Medicine
DX: R53.1 Weakness (principal); R29.6 Repeated falls; N39.0 Urinary tract infection, site not specified; E87.1 Hypo-osmolality and hyponatremia; F10.10 Alcohol abuse, uncomplicated; L89.301 Pressure ulcer of unspecified buttock, stage 1; F32.A Depression, unspecified; Z79.899 Other long term (current) drug therapy; Z79.2 Long term (current) use of antibiotics
CPT/HCPCS: 36415; 80048; 80053; 80076; 81001; 82077; 83605; 83735; 84132; 85025; 85027; 87040; 87086; 87631; 93005; 93041; 96372; 96374; 96375; 97116; 97161; 99285; J1650; J2405

== ENCOUNTER → 2023-06-09 | Outpatient (CLI) | payer BC ==
[~2023-06-09] MED LIST changes: -ASPI-161 PO; +ASPI-615 PO
[2023-06-09 15:49] LABS: HEMATOCRIT 37.5 % (42.0-52.0); MEAN CORPUSCULAR HEMOGLOBIN 33.2 pg (27.0-33.0); MEAN CORPUSCULAR HGB CONC 34.7 g/dl (32.0-36.5); MEAN CORPUSCULAR VOLUME 95.7 fl (80.0-96.0); PLATELET COUNT, AUTOMATED 291 10^3/uL (150-450); RED BLOOD COUNT 3.92 10^6/uL (4.30-6.10); WHITE BLOOD COUNT 5.7 10^3/uL (4.0-10.0)
[2023-06-09 16:04] LABS: INR 0.89; PROTHROMBIN TIME 11.8 SECONDS (12.5-14.5)
[2023-06-09 16:08] LABS: ALBUMIN 3.8 G/DL (3.2-5.2); ALKALINE PHOSPHATASE 80 U/L (46-116); ALT/SGPT 10 U/L (7.0-40); AST/SGOT 19 U/L (<34); BILIRUBIN,TOTAL 0.4 MG/DL (0.3-1.2); BLOOD UREA NITROGEN 7 MG/DL (9-23); CALCIUM LEVEL 9.2 MG/DL (8.3-10.6); CARBON DIOXIDE LEVEL 25 MMOL/L (20-31); CHLORIDE LEVEL 98 MMOL/L (98-107); CHOLESTEROL LEVEL 161 MG/DL (<200); CHOLESTEROL RISK RATIO 1.76 (<5); CREATININE FOR GFR 0.68 MG/DL (0.70-1.30); GLOMERULAR FILTRATION RATE > 60.0 (>49); GLUCOSE, FASTING 86 MG/DL (74-106); HDL CHOLESTEROL 91.4 MG/DL (>40); LDL CHOLESTEROL 40.4 MG/DL (<100); NON-HDL-C 69.6 MG/DL; POTASSIUM SERUM 3.9 MMOL/L (3.5-5.1); SODIUM LEVEL 131 MMOL/L (136-145); TOTAL PROTEIN 6.7 G/DL (5.7-8.2); TRIGLYCERIDES LEVEL 146 MG/DL (<150)
== END ==
LOC: M PLALAB 14:57 → M LAB 14:57
PROVIDERS: ATTEND Family Medicine
DX: K70.9 Alcoholic liver disease, unspecified (principal); I10 Essential (primary) hypertension; E78.2 Mixed hyperlipidemia

== ENCOUNTER → 2023-07-03 | Outpatient (CLI) | payer BC ==
[2023-07-03 12:40] LABS: ALBUMIN 4.1 G/DL (3.2-5.2); ALKALINE PHOSPHATASE 68 U/L (46-116); ALT/SGPT 36 U/L (7.0-40); AST/SGOT 52 U/L (<34); BILIRUBIN,TOTAL 0.5 MG/DL (0.3-1.2); BLOOD UREA NITROGEN 6 MG/DL (9-23); CALCIUM LEVEL 9.9 MG/DL (8.3-10.6); CARBON DIOXIDE LEVEL 26 MMOL/L (20-31); CHLORIDE LEVEL 96 MMOL/L (98-107); CREATININE FOR GFR 0.68 MG/DL (0.70-1.30); GLOMERULAR FILTRATION RATE > 60.0 (>49); GLUCOSE, FASTING 70 MG/DL (74-106); POTASSIUM SERUM 4.5 MMOL/L (3.5-5.1); SODIUM LEVEL 131 MMOL/L (136-145); TOTAL PROTEIN 6.9 G/DL (5.7-8.2)
[2023-07-03 12:42] LABS: BASO # 0.1 10^3/uL (0.0-0.2); BASO % 1.5 % (0.0-1.0); EOS # 0.3 10^3/uL (0.0-0.5); EOS % 4.3 % (0.0-3.0); HEMATOCRIT 38.4 % (42.0-52.0); LYMPH # 1.1 10^3/uL (1.5-5.0); LYMPH % 14.8 % (24.0-44.0); MEAN CORPUSCULAR HEMOGLOBIN 33.6 pg (27.0-33.0); MEAN CORPUSCULAR HGB CONC 33.9 g/dl (32.0-36.5); MEAN CORPUSCULAR VOLUME 99.2 fl (80.0-96.0); MONO % 13.3 % (2.0-8.0); NEUTROPHILS # 4.9 10^3/uL (1.5-8.5); NEUTROPHILS % 65.6 % (36.0-66.0); PLATELET COUNT, AUTOMATED 258 10^3/uL (150-450); RED BLOOD COUNT 3.87 10^6/uL (4.30-6.10); WHITE BLOOD COUNT 7.4 10^3/uL (4.0-10.0)
== END ==
LOC: M PLALAB 09:38
PROVIDERS: ATTEND Family Medicine
DX: Z01.818 Encounter for other preprocedural examination (principal)

== ENCOUNTER → 2023-07-06 | Outpatient (REF) | payer BC ==
[~2023-07-06] MED LIST changes: +ACET-897 PO
[2023-07-06 12:59] LABS: APPEARANCE, URINE TURBID (CLEAR); BACTERIA, URINE AUTO 2+ (NEGATIVE); BILIRUBIN, URINE AUTO NEGATIVE (NEGATIVE); BLOOD, URINE BLOOD 3+ (NEGATIVE); COLOR, URINE AMBER (YELLOW); GLUCOSE, URINE (UA) AUTO NEGATIVE (NEGATIVE); KETONE, URINE AUTO NEGATIVE (NEGATIVE); LEUKOCYTE ESTERASE, URINE AUTO 2+ (NEGATIVE); NITRITE, URINE AUTO NEGATIVE (NEGATIVE); PROTEIN, URINE AUTO 2+ mg/dL (NEGATIVE); RBC, URINE AUTO TNTC /HPF (0-3); SPECIFIC GRAVITY URINE AUTO 1.008 (1.002-1.035); SQUAMOUS EPITHELIAL CELL UR AU 1 /HPF (0-6); UROBILINOGEN, URINE AUTO 0.2 mg/dL (0.0-2.0); WBC, URINE AUTO TNTC /HPF (0-3)
== END ==
LOC: M SMT 12:28
PROVIDERS: ATTEND Nurse Practitioner Family
DX: Z01.818 Encounter for other preprocedural examination (principal)

== ENCOUNTER 2023-07-10 10:52 | Day surgery (SDC) | payer BC ==
[~2023-07-10] VITALS: Ht 167.6 cm; Wt 72.2 kg
[2023-07-10] MEDS ORDERED: LR 1,000 ML IV SCH ×2 (11:25→13:35)
[2023-07-10] MEDS ORDERED: LIDOCAINE 2% 100MG/5ML SDV (FOR ANES.) As Ordered ONE (11:45)
[2023-07-10] MEDS ORDERED: SUGAMMADEX SODIUM 500 MG/5 ML VIAL (BRIDION) As Ordered ONE (11:45)
[2023-07-10] MEDS ORDERED: propofoL 200 MG/20 ML VIAL As Ordered ONE (11:45)
[2023-07-10] MEDS ORDERED: ROCURONIUM BROMIDE 50MG/5ML VIAL As Ordered ONE (11:45)
[2023-07-10] MEDS ORDERED: ACETAMINOPHEN 1000MG 100ML IV BAG As Ordered ONE (11:45)
[2023-07-10] MEDS ORDERED: ONDANSETRON 4MG 2ML VIAL As Ordered ONE (11:46)
[2023-07-10] MEDS ORDERED: MIDAZOLAM INJ 2MG/2ML VIAL As Ordered ONE (11:48)
[2023-07-10] MEDS ORDERED: fentaNYL 100 MCG/2 ML INJECTION As Ordered ONE (11:48)
[2023-07-10] MEDS: ceFAZolin SOD 2 GM in IV 1 EA IV ONE (12:25)
[2023-07-10] MEDS ORDERED: HYDROmorphone HCL 2MG/ML 1ML VIAL As Ordered ONE (12:28)
[2023-07-10] MEDS: LIDOCAINE 1% SDV 30ML VIAL As Ordered ONE (13:31)
[2023-07-10] MEDS ORDERED: fentaNYL 100 MCG/2 ML INJECTION IV PRN (13:35)
[2023-07-10] MEDS ORDERED: HYDROMORPHONE HCL 0.5 MG/ 0.5 ML SYRINGE IV PRN (13:35)
[2023-07-10] MEDS ORDERED: oxyCODONE 5MG TAB PO PRN (13:35)
[2023-07-10] MEDS ORDERED: ONDANSETRON 4MG 2ML VIAL IV PRN (13:35)
[2023-07-10 15:30] VITALS: BP 142/78; TEMP 97.7; O2SAT 97
== END 2023-07-10 16:22 | disposition home or self-care (01) ==
LOC: M SDC 10:52
PROVIDERS: ATTEND Urology
DX: N40.1 Benign prostatic hyperplasia with lower urinary tract symptoms (principal); R33.9 Retention of urine, unspecified; R32 Unspecified urinary incontinence; K74.60 Unspecified cirrhosis of liver; I10 Essential (primary) hypertension; K76.0 Fatty (change of) liver, not elsewhere classified; E78.00 Pure hypercholesterolemia, unspecified; J45.909 Unspecified asthma, uncomplicated; Z79.899 Other long term (current) drug therapy; Z90.49 Acquired absence of other specified parts of digestive tract; F41.9 Anxiety disorder, unspecified; F32.9 Major depressive disorder, single episode, unspecified
CPT/HCPCS: 51040; J0131; J0665; J0690; J1100; J1170; J2250; J2405; J3010

== ENCOUNTER → 2023-08-21 | Outpatient (REF) | payer BC ==
[2023-08-21 13:08] LABS: APPEARANCE, URINE CLOUDY (CLEAR); BACTERIA, URINE AUTO 1+ (NEGATIVE); BILIRUBIN, URINE AUTO NEGATIVE (NEGATIVE); BLOOD, URINE BLOOD 3+ (NEGATIVE); COLOR, URINE YELLOW (YELLOW); GLUCOSE, URINE (UA) AUTO NEGATIVE (NEGATIVE); KETONE, URINE AUTO NEGATIVE (NEGATIVE); LEUKOCYTE ESTERASE, URINE AUTO 3+ (NEGATIVE); MUCUS, URINE SMALL (NEGATIVE); NITRITE, URINE AUTO NEGATIVE (NEGATIVE); PROTEIN, URINE AUTO NEGATIVE (NEGATIVE); RBC, URINE AUTO 79 /HPF (0-3); SPECIFIC GRAVITY URINE AUTO 1.005 (1.002-1.035); SQUAMOUS EPITHELIAL CELL UR AU 0 /HPF (0-6); UROBILINOGEN, URINE AUTO 0.2 mg/dL (0.0-2.0); WBC, URINE AUTO 79 /HPF (0-3)
== END ==
LOC: M SMT 12:20
PROVIDERS: ATTEND Urology
DX: N39.0 Urinary tract infection, site not specified (principal)

== ENCOUNTER → 2023-11-02 | Outpatient (CLI) | payer BC ==
[2023-11-02 18:43] LABS: HEMATOCRIT 33.1 % (42.0-52.0)
[2023-11-02 18:44] LABS: BASO % 0.5 % (0.0-1.0); EOS # 0.1 10^3/uL (0.0-0.5); EOS % 1.6 % (0.0-3.0); HEMATOCRIT 33.1 % (42.0-52.0); HEMOGLOBIN 11.5 g/dl (13.5-17.5); LIPASE 111 U/L (12-53); LYMPH % 12.8 % (24.0-44.0); MEAN CORPUSCULAR HEMOGLOBIN 37.5 pg (27.0-33.0); MEAN CORPUSCULAR HGB CONC 34.7 g/dl (32.0-36.5); MEAN CORPUSCULAR VOLUME 107.8 fl (80.0-96.0); MONO # 1.2 10^3/uL (0.0-0.8); MONO % 15.9 % (2.0-8.0); NEUTROPHILS # 5.2 10^3/uL (1.5-8.5); PLATELET COUNT, AUTOMATED 328 10^3/uL (150-450); RED BLOOD COUNT 3.07 10^6/uL (4.30-6.10); WHITE BLOOD COUNT 7.7 10^3/uL (4.0-10.0)
[2023-11-02 18:46] LABS: AMYLASE 94 U/L (30-118); IRON (FE) 41 UG/DL (65-175)
[2023-11-02 19:30] LABS: ALBUMIN 3.2 G/DL (3.2-5.2); ALKALINE PHOSPHATASE 1639 U/L (46-116); ALT/SGPT 207 U/L (7.0-40); AST/SGOT 361 U/L (<34); BLOOD UREA NITROGEN 7 MG/DL (9-23); CALCIUM LEVEL 9.4 MG/DL (8.3-10.6); CARBON DIOXIDE LEVEL 23 MMOL/L (20-31); CHLORIDE LEVEL 92 MMOL/L (98-107); CHOLESTEROL LEVEL 174 MG/DL (<200); CHOLESTEROL RISK RATIO 4.78 (<5); CREATININE FOR GFR 0.39 MG/DL (0.70-1.30); GLOMERULAR FILTRATION RATE > 60.0 (>49); GLUCOSE, FASTING 81 MG/DL (74-106); HDL CHOLESTEROL 36.4 MG/DL (>40); NON-HDL-C 137.6 MG/DL; POTASSIUM SERUM 4.9 MMOL/L (3.5-5.1); SODIUM LEVEL 120 MMOL/L (136-145); TOTAL PROTEIN 6.1 G/DL (5.7-8.2); TRIGLYCERIDES LEVEL 188 MG/DL (<150); VITAMIN B12 LEVEL 961 PG/ML (211-911)
== END ==
LOC: M PLALAB 14:53
PROVIDERS: ATTEND Student in an Organized Health Care Education/Training Program
DX: E78.2 Mixed hyperlipidemia (principal); F10.20 Alcohol dependence, uncomplicated; R53.82 Chronic fatigue, unspecified; G62.1 Alcoholic polyneuropathy; R11.10 Vomiting, unspecified

== ENCOUNTER → 2023-11-03 | Outpatient (CLI) | payer BC ==
[2023-11-03 14:39] LABS: HEPATITIS B SURFACE ANTIGEN NEGATIVE (NEGATIVE)
[2023-11-03 14:52] LABS: HIV 1&2 SCREEN NEGATIVE (NEGATIVE)
[2023-11-03 15:00] LABS: HEPATITIS B CORE ANTIBODY IGM NEGATIVE (NEGATIVE); HEPATITIS C VIRUS ABY INDEX 0.05 INDEX (<0.8)
[2023-11-03 15:29] LABS: ALBUMIN 3.2 G/DL (3.2-5.2); ALKALINE PHOSPHATASE 1723 U/L (46-116); ALT/SGPT 214 U/L (7.0-40); AST/SGOT 363 U/L (<34); BILIRUBIN,TOTAL 3.1 MG/DL (0.3-1.2); BLOOD UREA NITROGEN 6 MG/DL (9-23); CALCIUM LEVEL 9.7 MG/DL (8.3-10.6); CARBON DIOXIDE LEVEL 23 MMOL/L (20-31); CHLORIDE LEVEL 94 MMOL/L (98-107); CREATININE FOR GFR 0.37 MG/DL (0.70-1.30); GLOMERULAR FILTRATION RATE > 60.0 (>49); GLUCOSE, FASTING 90 MG/DL (74-106); POTASSIUM SERUM 5.3 MMOL/L (3.5-5.1); SODIUM LEVEL 125 MMOL/L (136-145); TOTAL PROTEIN 6.2 G/DL (5.7-8.2)
== END ==
LOC: M PLALAB 11:11
PROVIDERS: ATTEND Student in an Organized Health Care Education/Training Program
DX: R74.8 Abnormal levels of other serum enzymes (principal); T39.1X1A Poisoning by 4-Aminophenol derivatives, accidental (unintentional), initial encounter

== ENCOUNTER → 2023-11-09 | Outpatient (CLI) | payer BC ==
[2023-11-09 13:41] LABS: INR 1.02; PROTHROMBIN TIME 13.1 SECONDS (12.5-14.5)
[2023-11-09 16:40] LABS: ALBUMIN 3.6 G/DL (3.2-5.2); ALKALINE PHOSPHATASE 1162 U/L (46-116); ALT/SGPT 99 U/L (7.0-40); AST/SGOT 115 U/L (<34); BILIRUBIN,DIRECT 1.1 MG/DL (<0.4); BILIRUBIN,TOTAL 1.5 MG/DL (0.3-1.2); BLOOD UREA NITROGEN 6 MG/DL (9-23); CARBON DIOXIDE LEVEL 27 MMOL/L (20-31); CHLORIDE LEVEL 99 MMOL/L (98-107); CREATININE FOR GFR 0.42 MG/DL (0.70-1.30); GLOMERULAR FILTRATION RATE > 60.0 (>49); GLUCOSE, FASTING 89 MG/DL (74-106); POTASSIUM SERUM 5.1 MMOL/L (3.5-5.1); SODIUM LEVEL 133 MMOL/L (136-145); TOTAL PROTEIN 6.8 G/DL (5.7-8.2)
== END ==
LOC: M PLALAB 09:24
PROVIDERS: ATTEND Student in an Organized Health Care Education/Training Program
DX: R11.0 Nausea (principal); R74.8 Abnormal levels of other serum enzymes

== ENCOUNTER → 2023-11-09 | Outpatient (CLI) | payer BC | LOC: M WHC 07:42 | PROVIDERS: ATTEND Student in an Organized Health Care Education/Training Program | DX: R11.10 Vomiting, unspecified (principal) ==

== ENCOUNTER → 2023-11-19 | Outpatient (CLI) | payer BC | LOC: M PLAIMG 14:12 | PROVIDERS: ATTEND Student in an Organized Health Care Education/Training Program | DX: R74.8 Abnormal levels of other serum enzymes (principal); R91.8 Other nonspecific abnormal finding of lung field; N28.1 Cyst of kidney, acquired; I70.0 Atherosclerosis of aorta; K76.0 Fatty (change of) liver, not elsewhere classified ==

== ENCOUNTER 2023-12-29 01:46 | Emergency (ER) | payer BC ==
[~2023-12-29] VITALS: Ht 167.6 cm; Wt 66.4 kg
[2023-12-29 02:11] VITALS: TEMP 96.7
[2023-12-29 03:00] VITALS: BP 109/70
[2023-12-29 03:41] VITALS: O2SAT 98
== END 2023-12-29 06:22 | disposition home or self-care (01) ==
LOC: EDBD 01:46 → M ED 01:46
DX: T83.018A Breakdown (mechanical) of other urinary catheter, initial encounter (principal); F10.10 Alcohol abuse, uncomplicated; I10 Essential (primary) hypertension; M54.50 Low back pain, unspecified; Z79.811 Long term (current) use of aromatase inhibitors; Z79.1 Long term (current) use of non-steroidal anti-inflammatories (NSAID); Z79.899 Other long term (current) drug therapy

== ENCOUNTER 2024-01-21 23:47 | Emergency (ER) | payer BC ==
[~2024-01-21] VITALS: Ht 170.2 cm; Wt 74.3 kg
[~2024-01-21 23:47] MED LIST changes: +GABA-1172 PO; -GABA-282 PO
[2024-01-21 23:56] VITALS: TEMP 97.3
[2024-01-22] MEDS: KETOROLAC 60MG 2ML VIAL IM ONE (05:33)
[2024-01-22 05:45] VITALS: O2SAT 99
[2024-01-22 05:46] VITALS: BP 121/57
== END 2024-01-22 06:18 | disposition home or self-care (01) ==
LOC: M ED 23:47
DX: F10.129 Alcohol abuse with intoxication, unspecified (principal); R29.6 Repeated falls; M17.12 Unilateral primary osteoarthritis, left knee; M25.861 Other specified joint disorders, right knee; K21.9 Gastro-esophageal reflux disease without esophagitis; E78.5 Hyperlipidemia, unspecified; Z79.1 Long term (current) use of non-steroidal anti-inflammatories (NSAID); Z79.899 Other long term (current) drug therapy
CPT/HCPCS: 73564; 96372; 99284; J1885

== ENCOUNTER 2024-02-01 01:16 | Emergency (ER) | payer BC ==
[~2024-02-01] VITALS: Ht 170.2 cm; Wt 71.4 kg
[2024-02-01 06:36] LABS: BASO # 0.1 10^3/uL (0.0-0.2); BASO % 0.6 % (0.0-1.0); EOS # 0.2 10^3/uL (0.0-0.5); EOS % 1.5 % (0.0-3.0); HEMATOCRIT 34.8 % (42.0-52.0); HEMOGLOBIN 12.9 g/dl (13.5-17.5); LYMPH # 0.9 10^3/uL (1.5-5.0); LYMPH % 8.1 % (24.0-44.0); MEAN CORPUSCULAR HEMOGLOBIN 35.7 pg (27.0-33.0); MEAN CORPUSCULAR VOLUME 96.4 fl (80.0-96.0); MONO # 1.7 10^3/uL (0.0-0.8); MONO % 15.1 % (2.0-8.0); NEUTROPHILS # 7.9 10^3/uL (1.5-8.5); NEUTROPHILS % 71.8 % (36.0-66.0); PLATELET COUNT, AUTOMATED 300 10^3/uL (150-450); RED BLOOD COUNT 3.61 10^6/uL (4.30-6.10)
[2024-02-01 06:37] LABS: MEAN CORPUSCULAR HGB CONC 37.1 g/dl (32.0-36.5)
[2024-02-01 06:59] LABS: BLOOD UREA NITROGEN 35 MG/DL (9-23); CALCIUM LEVEL 11.7 MG/DL (8.3-10.6); CARBON DIOXIDE LEVEL 16 MMOL/L (20-31); CHLORIDE LEVEL 99 MMOL/L (98-107); CREATININE FOR GFR 0.85 MG/DL (0.70-1.30); GLOMERULAR FILTRATION RATE > 60.0 (>49); GLUCOSE, FASTING 88 MG/DL (74-106); POTASSIUM SERUM 4.5 MMOL/L (3.5-5.1); SODIUM LEVEL 124 MMOL/L (136-145)
[2024-02-01 08:33] LABS: ERYTHROCYTE SEDIMENTATION RATE 31 mm/hr (0-20)
[2024-02-01 11:00] LABS: ETHYL ALCOHOL (ETHANOL) < 0.003 % (0.000-0.010)
[2024-02-01 11:03] LABS: ALBUMIN 3.6 G/DL (3.2-5.2); ALKALINE PHOSPHATASE 234 U/L (46-116); ALT/SGPT 37 U/L (7.0-40); AST/SGOT 83 U/L (<34); BILIRUBIN,DIRECT 0.2 MG/DL (<0.4); BILIRUBIN,TOTAL 0.4 MG/DL (0.3-1.2); TOTAL PROTEIN 6.8 G/DL (5.7-8.2)
[2024-02-01] MEDS: LACTULOSE 20GM/30ML SYRUP UDC PO ONE (12:11)
[2024-02-01] MEDS: PIPERACILLIN/TAZOBACTAM SOD 3.375 GM in D5W MINI-BAG PLUS 50 ML IV ONE (12:12)
[2024-02-01] MEDS: NS 1,000 ML IV SCH (12:31)
[2024-02-01] MEDS: MULTIVITAMIN -ADULT INJECTION 10 ML, THIAMINE INJection 100 MG, FOLIC ACID 1 MG in NS 1... IV ONE (12:31)
[2024-02-01 13:01] LABS: VENOUS BASE EXCESS -11.1 (-2.0-2.0); VENOUS HCO3 13.8 MMOL/L (23.0-27.0); VENOUS O2 SATURATION 97.5 % (60.0-80.0); VENOUS PARTIAL PRESSURE CO2 28.1 mmHg (38.0-50.0); VENOUS PARTIAL PRESSURE O2 111.6 mmHg (30.0-50.0); VENOUS PH 7.308 UNITS (7.330-7.430); VENOUS STANDARD HCO3 15.6 MMOL/L; VENOUS TOTAL CO2 14.6 MMOL/L (24.0-28.0)
[2024-02-01 13:05] VITALS: TEMP 98
[2024-02-01 13:06] VITALS: BP 155/60; O2SAT 100
== END 2024-02-01 13:42 | disposition short-term general hospital (02) ==
LOC: M ED 01:16 → EDBD 01:16 → M ED 13:42
DX: S32.010A Wedge compression fracture of first lumbar vertebra, initial encounter for closed fracture (principal); S92.354B Nondisplaced fracture of fifth metatarsal bone, right foot, initial encounter for open fracture; W05.0XXA Fall from non-moving wheelchair, initial encounter; K76.82 Hepatic encephalopathy; E87.21 Acute metabolic acidosis; R53.1 Weakness; J45.909 Unspecified asthma, uncomplicated; I10 Essential (primary) hypertension; F10.10 Alcohol abuse, uncomplicated; M25.78 Osteophyte, vertebrae; M51.86 Other intervertebral disc disorders, lumbar region; K59.00 Constipation, unspecified; M47.816 Spondylosis without myelopathy or radiculopathy, lumbar region; Z79.811 Long term (current) use of aromatase inhibitors; Z79.1 Long term (current) use of non-steroidal anti-inflammatories (NSAID); Z79.899 Other long term (current) drug therapy; Y92.009 Unspecified place in unspecified non-institutional (private) residence as the place of occurrence of the external cause; Y93.89 Activity, other specified; Y99.9 Unspecified external cause status; M51.360 Other intervertebral disc degeneration, lumbar region with discogenic back pain only
CPT/HCPCS: 70450; 72110; 72125; 72131; 73630; 80048; 80076; 82077; 82140; 82803; 83605; 85025; 85652; 86140; 87040; 87077; 87186; 96374; 96375; 99285; J2543; J3411

== ENCOUNTER 2024-04-24 08:57 | Emergency (ER) | payer BC ==
[~2024-04-24] VITALS: Ht 167.6 cm; Wt 65.9 kg
[2024-04-24 12:23] VITALS: BP 124/71; TEMP 97.2; O2SAT 99
== END 2024-04-24 12:50 | disposition home or self-care (01) ==
LOC: M ED 08:57 → EDBD 08:57 → M ED 12:50
DX: Z46.6 Encounter for fitting and adjustment of urinary device (principal); I10 Essential (primary) hypertension; J45.909 Unspecified asthma, uncomplicated; F10.10 Alcohol abuse, uncomplicated; Z79.811 Long term (current) use of aromatase inhibitors; Z79.899 Other long term (current) drug therapy; Z79.1 Long term (current) use of non-steroidal anti-inflammatories (NSAID)

== ENCOUNTER → 2024-05-11 | Outpatient (REF) | payer BC ==
[2024-05-11 19:39] LABS: ALBUMIN 3.8 G/DL (3.2-5.2); ALKALINE PHOSPHATASE 526 U/L (40-129); ALT/SGPT 20 U/L (7.0-40); AST/SGOT 34 U/L (<34); BILIRUBIN,TOTAL 0.3 MG/DL (0.3-1.2); BLOOD UREA NITROGEN 9 MG/DL (9-23); CALCIUM LEVEL 9.8 MG/DL (8.3-10.6); CARBON DIOXIDE LEVEL 23 MMOL/L (20-31); CHLORIDE LEVEL 100 MMOL/L (98-107); GLOMERULAR FILTRATION RATE > 60.0 (>49); GLUCOSE, FASTING 75 MG/DL (74-106); MAGNESIUM LEVEL 2.1 MG/DL (1.8-2.4); POTASSIUM SERUM 4.1 MMOL/L (3.5-5.1); SODIUM LEVEL 133 MMOL/L (136-145); TOTAL PROTEIN 7.8 G/DL (5.7-8.2)
== END ==
LOC: M SFHCPLAZ 10:45
PROVIDERS: ATTEND Family Medicine
DX: K70.9 Alcoholic liver disease, unspecified (principal)

== ENCOUNTER → 2024-06-07 | Outpatient (REF) | payer BC ==
[2024-06-07 18:29] LABS: HEMATOCRIT 41.7 % (42.0-52.0)
[2024-06-07 18:31] LABS: BASO # 0.1 10^3/uL (0.0-0.2); BASO % 0.8 % (0.0-1.0); EOS # 0.1 10^3/uL (0.0-0.5); EOS % 1.1 % (0.0-3.0); HEMATOCRIT 41.5 % (42.0-52.0); HEMOGLOBIN 14.5 g/dl (13.5-17.5); LYMPH # 1.2 10^3/uL (1.5-5.0); LYMPH % 12.5 % (24.0-44.0); MEAN CORPUSCULAR HEMOGLOBIN 34.9 pg (27.0-33.0); MEAN CORPUSCULAR HGB CONC 34.9 g/dl (32.0-36.5); MEAN CORPUSCULAR VOLUME 99.8 fl (80.0-96.0); MONO % 10.3 % (2.0-8.0); NEUTROPHILS # 7.1 10^3/uL (1.5-8.5); NEUTROPHILS % 74.7 % (36.0-66.0); PLATELET COUNT, AUTOMATED 283 10^3/uL (150-450); RED BLOOD COUNT 4.16 10^6/uL (4.30-6.10); WHITE BLOOD COUNT 9.6 10^3/uL (4.0-10.0)
[2024-06-07 19:02] LABS: IRON (FE) 81 UG/DL (65-175)
[2024-06-07 19:14] LABS: ALBUMIN 4.2 G/DL (3.2-5.2); ALKALINE PHOSPHATASE 685 U/L (40-129); ALT/SGPT 58 U/L (7.0-40); AST/SGOT 113 U/L (<34); BILIRUBIN,TOTAL 0.4 MG/DL (0.3-1.2); BLOOD UREA NITROGEN 7 MG/DL (9-23); CARBON DIOXIDE LEVEL 24 MMOL/L (20-31); CHLORIDE LEVEL 91 MMOL/L (98-107); CHOLESTEROL LEVEL 216 MG/DL (<200); CHOLESTEROL RISK RATIO 1.32 (<5); CREATININE FOR GFR 0.56 MG/DL (0.70-1.30); FERRITIN 384.5 NG/ML (10.5-307.3); FREE T4 1.11 NG/DL (0.89-1.76); GLOMERULAR FILTRATION RATE > 60.0 (>49); GLUCOSE, FASTING 76 MG/DL (74-106); HDL CHOLESTEROL 162.6 MG/DL (>40); LDL CHOLESTEROL 29.6 MG/DL (<100); NON-HDL-C 53.4 MG/DL; POTASSIUM SERUM 4.1 MMOL/L (3.5-5.1); SODIUM LEVEL 128 MMOL/L (136-145); TOTAL PROTEIN 8.3 G/DL (5.7-8.2); TRIGLYCERIDES LEVEL 119 MG/DL (<150); VITAMIN B12 LEVEL 665 PG/ML (211-911)
[2024-06-07 19:15] LABS: PERCENT SATURATION 27.4 % (19.7-50.0); TOTAL IRON BINDING CAPACITY 296 UG/DL (250-425)
== END ==
LOC: M PLALAB 16:54
PROVIDERS: ATTEND Student in an Organized Health Care Education/Training Program
DX: R53.82 Chronic fatigue, unspecified (principal); F10.20 Alcohol dependence, uncomplicated; I10 Essential (primary) hypertension

== ENCOUNTER → 2024-07-22 | Outpatient (REF) | payer BC ==
[2024-07-22 14:10] LABS: APPEARANCE, URINE HAZY (CLEAR); BACTERIA, URINE AUTO NEGATIVE (NEGATIVE); BILIRUBIN, URINE AUTO NEGATIVE (NEGATIVE); BLOOD, URINE BLOOD 2+ (NEGATIVE); COLOR, URINE RED (YELLOW); GLUCOSE, URINE (UA) AUTO NEGATIVE (NEGATIVE); KETONE, URINE AUTO NEGATIVE (NEGATIVE); LEUKOCYTE ESTERASE, URINE AUTO 3+ (NEGATIVE); NITRITE, URINE AUTO NEGATIVE (NEGATIVE); PROTEIN, URINE AUTO 2+ mg/dL (NEGATIVE); RBC, URINE AUTO 2 /HPF (0-3); SPECIFIC GRAVITY URINE AUTO 1.002 (1.002-1.035); SQUAMOUS EPITHELIAL CELL UR AU 0 /HPF (0-6); UROBILINOGEN, URINE AUTO 0.2 mg/dL (0.0-2.0); WBC, URINE AUTO 26 /HPF (0-3)
== END ==
LOC: M SMT 12:31
PROVIDERS: ATTEND Urology
DX: N39.0 Urinary tract infection, site not specified (principal)

== ENCOUNTER → 2024-10-19 | Outpatient (CLI) | payer BC ==
[~2024-10-19] MED LIST changes: +LISI40TA10 PO; -LISI40TA4 PO
[2024-10-19 15:35] LABS: BASO # 0.0 10^3/uL (0.0-0.2); BASO % 0.7 % (0.0-1.0); EOS # 0.1 10^3/uL (0.0-0.5); EOS % 1.2 % (0.0-3.0); LYMPH # 0.7 10^3/uL (1.5-5.0); LYMPH % 12.0 % (24.0-44.0); MONO # 0.9 10^3/uL (0.0-0.8); MONO % 14.2 % (2.0-8.0); NEUTROPHILS # 4.3 10^3/uL (1.5-8.5); NEUTROPHILS % 71.6 % (36.0-66.0); PLATELET COUNT, AUTOMATED 185 10^3/uL (150-450)
[2024-10-19 15:36] LABS: IRON (FE) 113 UG/DL (65-175); PERCENT SATURATION 59.2 % (19.7-50.0); PSA SCREENING 2.12 NG/ML (< 4.00)
[2024-10-19 15:40] LABS: FREE T4 0.82 NG/DL (0.89-1.76); VITAMIN B12 LEVEL 1181 PG/ML (211-911)
[2024-10-19 15:42] LABS: ALT/SGPT 81 U/L (7.0-40); AST/SGOT 232 U/L (<34); CALCIUM LEVEL 8.9 MG/DL (8.3-10.6); CARBON DIOXIDE LEVEL 22 MMOL/L (20-31); CHLORIDE LEVEL 91 MMOL/L (98-107); CHOLESTEROL LEVEL 188 MG/DL (<200); CHOLESTEROL RISK RATIO 1.44 (<5); CREATININE FOR GFR 0.54 MG/DL (0.70-1.30); GLOMERULAR FILTRATION RATE > 90.0 (>49); LDL CHOLESTEROL 45.2 MG/DL (<100); NON-HDL-C 58.0 MG/DL; POTASSIUM SERUM 4.4 MMOL/L (3.5-5.1); SODIUM LEVEL 126 MMOL/L (136-145); TRIGLYCERIDES LEVEL 64 MG/DL (<150)
[2024-10-19 16:06] LABS: CREATININE, URINE 24.5 MG/DL; MALB URINE SIEMENS 52.0 MG/L; MAU/CREAT RATIO 212.2 MCG/MG (0.0-30.0)
== END ==
LOC: M PLALAB 11:57
PROVIDERS: ATTEND Student in an Organized Health Care Education/Training Program
DX: I10 Essential (primary) hypertension (principal); F10.20 Alcohol dependence, uncomplicated; Z12.5 Encounter for screening for malignant neoplasm of prostate; E78.2 Mixed hyperlipidemia

== ENCOUNTER → 2024-12-28 | Outpatient (CLI) | payer MEDICARE ==
[~2024-12-28] MED LIST changes: +MED REC COMMENT
[2024-12-28 18:30] LABS: PLATELET COUNT, AUTOMATED 317 10^3/uL (150-450)
[2024-12-28 18:51] LABS: IRON (FE) 23 UG/DL (65-175); PERCENT SATURATION 16.0 % (19.7-50.0)
[2024-12-28 18:53] LABS: VITAMIN B12 LEVEL 1164 PG/ML (211-911)
== END ==
LOC: M PLALAB 16:40
PROVIDERS: ATTEND Nurse Practitioner Family
DX: M25.512 Pain in left shoulder (principal); M19.012 Primary osteoarthritis, left shoulder

== ENCOUNTER 2025-01-03 15:48 | Inpatient (IN) | payer MEDICARE ==
[~2025-01-03] VITALS: Ht 167.6 cm; Wt 63.3 kg
[~2025-01-03 15:48] MED LIST changes: -MED REC COMMENT
[2025-01-03 17:03] LABS: BASO # 0.1 10^3/uL (0.0-0.2); BASO % 0.4 % (0.0-1.0); EOS # 0.0 10^3/uL (0.0-0.5); EOS % 0.0 % (0.0-3.0); LYMPH # 0.6 10^3/uL (1.5-5.0); LYMPH % 1.6 % (24.0-44.0); MONO # 1.9 10^3/uL (0.0-0.8); MONO % 5.3 % (2.0-8.0); NEUTROPHILS # 31.6 10^3/uL (1.5-8.5); NEUTROPHILS % 89.0 % (36.0-66.0); PLATELET COUNT, AUTOMATED 459 10^3/uL (150-450)
[2025-01-03 17:07] LABS: KETONE, URINE AUTO RFX TRACE mg/dL (NEGATIVE); MUCUS, URINE RFX LARGE (NEGATIVE); NITRITE, URINE AUTO RFX NEGATIVE (NEGATIVE); RBC, URINE AUTO RFX 7 /HPF (0-3); SQUAM EPITHELIAL CELL UR AURFX 1 /HPF (0-6)
[2025-01-03 17:09] LABS: LEUKOCYTE ESTERASE UR AUTO RFX 2+ (NEGATIVE); WBC, URINE AUTO RFX TNTC /HPF (0-3)
[2025-01-03] MEDS: cefTRIAXone SOD 2 GM in DEXTROSE 5% (D5W) ADV/MINI-BAG 50 ML IV ONE (17:17)
[2025-01-03] MEDS ORDERED: ISOVUE-370 76% 100 ML VIAL As Ordered ONE (17:33)
[2025-01-03 17:39] LABS: OSMOLALITY SERUM 242.0 MOSM/KG (280-301)
[2025-01-03 17:45] LABS: SODIUM,RANDOM URINE 12 MMOL/L
[2025-01-03 17:52] LABS: ETHYL ALCOHOL (ETHANOL) 0.049 % (0.000-0.010)
[2025-01-03] MEDS ORDERED: HOME MED LIST COMPLETE! XX SCH (20:35)
[2025-01-03] MEDS ORDERED: MED REC COMMENT (20:35)
[2025-01-03] MEDS: THIAMINE 100 MG TAB PO SCH (21:10)
[2025-01-03] MEDS: PIPERACILLIN/TAZOBACTAM SOD 4.5 GM in DEXTROSE 5% (D5W) ADV/MINI-BAG 50 ML IV SCH (21:10)
[2025-01-03 21:16] LABS: ALT/SGPT 39 U/L (7.0-40); AST/SGOT 95 U/L (<34); CALCIUM LEVEL 8.0 MG/DL (8.3-10.6); CARBON DIOXIDE LEVEL 17 MMOL/L (20-31); CHLORIDE LEVEL 81 MMOL/L (98-107); CREATININE FOR GFR 0.72 MG/DL (0.70-1.30); GLOMERULAR FILTRATION RATE > 90.0 (>49); POTASSIUM SERUM 5.2 MMOL/L (3.5-5.1); SODIUM LEVEL 109 MMOL/L (136-145)
[2025-01-03 22:40] LABS: INR 1.04
[2025-01-04] VITALS (8 sets, daily range): BP systolic 113–137; BP diastolic 65–88; TEMP 97.2–97.9; O2SAT 96–100
[2025-01-04 00:01] LABS: CALCIUM LEVEL 8.1 MG/DL (8.3-10.6); CARBON DIOXIDE LEVEL 19 MMOL/L (20-31); CHLORIDE LEVEL 80 MMOL/L (98-107); CREATININE FOR GFR 0.69 MG/DL (0.70-1.30); FREE T4 1.19 NG/DL (0.89-1.76); GLOMERULAR FILTRATION RATE > 90.0 (>49); POTASSIUM SERUM 4.9 MMOL/L (3.5-5.1); SODIUM LEVEL 109 MMOL/L (136-145)
[2025-01-04] MEDS: VANCOMYCIN HCL 1,250 MG, VIAL MATE ADAPTER 1 EACH in NS 250 ML IV ONE (01:33)
[2025-01-04] MEDS: SODIUM BICARBONATE 75 MEQ in NS 0.45% 1,000 ML IV SCH (01:33)
[2025-01-04 02:33] LABS: CALCIUM LEVEL 8.3 MG/DL (8.3-10.6); CARBON DIOXIDE LEVEL 15 MMOL/L (20-31); CHLORIDE LEVEL 83 MMOL/L (98-107); CREATININE FOR GFR 0.66 MG/DL (0.70-1.30); GLOMERULAR FILTRATION RATE > 90.0 (>49); POTASSIUM SERUM 5.1 MMOL/L (3.5-5.1); SODIUM LEVEL 109 MMOL/L (136-145)
[2025-01-04 06:18] LABS: PLATELET COUNT, AUTOMATED 297 10^3/uL (150-450)
[2025-01-04 06:31] LABS: CALCIUM LEVEL 7.9 MG/DL (8.3-10.6); CARBON DIOXIDE LEVEL 19 MMOL/L (20-31); CHLORIDE LEVEL 83 MMOL/L (98-107); CREATININE FOR GFR 0.65 MG/DL (0.70-1.30); GLOMERULAR FILTRATION RATE > 90.0 (>49); POTASSIUM SERUM 4.4 MMOL/L (3.5-5.1); SODIUM LEVEL 113 MMOL/L (136-145)
[2025-01-04] MEDS: PANTOPRAZOLE 40MG TAB PO SCH (08:32)
[2025-01-04] MEDS: FOLIC ACID 1 MG TAB PO SCH (08:32)
[2025-01-04] MEDS: VANCOMYCIN HCL 1,000 MG, VIAL MATE ADAPTER 1 EACH in NS 250 ML IV SCH (08:32)
[2025-01-04] MEDS: MULTIVITAMINS/MINERALS THERAP 1 TAB PO SCH (08:33)
[2025-01-04] MEDS ORDERED: HOME MED LIST COMPLETE! XX SCH (10:00)
[2025-01-04 11:11] LABS: CALCIUM LEVEL 7.9 MG/DL (8.3-10.6); CARBON DIOXIDE LEVEL 18 MMOL/L (20-31); CHLORIDE LEVEL 83 MMOL/L (98-107); CREATININE FOR GFR 0.62 MG/DL (0.70-1.30); GLOMERULAR FILTRATION RATE > 90.0 (>49); POTASSIUM SERUM 4.2 MMOL/L (3.5-5.1); SODIUM LEVEL 111 MMOL/L (136-145)
[2025-01-04] MEDS: diazePAM 2 MG TAB PO ONE (13:13)
[2025-01-04] MEDS ORDERED: MIDAZOLAM INJ 2 MG/2 ML VIAL IV PRN (13:40)
[2025-01-04] MEDS: ISOVUE-300 61% 100 ML VIAL IV SCH (13:40)
[2025-01-04] MEDS: SODIUM CHLORIDE 0.9% 1000 ML XX SCH (13:40)
[2025-01-04] MEDS: NS (Normal Saline) 0.9% 1,000 ML IV SCH (13:40)
[2025-01-04 15:03] LABS: CALCIUM LEVEL 8.1 MG/DL (8.3-10.6); CARBON DIOXIDE LEVEL 20 MMOL/L (20-31); CHLORIDE LEVEL 84 MMOL/L (98-107); CREATININE FOR GFR 0.66 MG/DL (0.70-1.30); GLOMERULAR FILTRATION RATE > 90.0 (>49); POTASSIUM SERUM 4.7 MMOL/L (3.5-5.1); SODIUM LEVEL 115 MMOL/L (136-145)
[2025-01-04] MEDS ORDERED: ONDANSETRON 4MG 2ML VIAL IV PRN (16:00)
[2025-01-04] MEDS: LIDOCAINE 1% MDV 20 ML VIAL SC SCH (16:44)
[2025-01-04 16:49] LABS: SODIUM,RANDOM URINE < 10 MMOL/L
[2025-01-04] MEDS ORDERED: GADOXETATE DISODIUM 2.5 MMOL/10 ML VIAL As Ordered ONE (17:59)
[2025-01-04 19:58] LABS: CALCIUM LEVEL 7.9 MG/DL (8.3-10.6); CARBON DIOXIDE LEVEL 23 MMOL/L (20-31); CHLORIDE LEVEL 84 MMOL/L (98-107); CREATININE FOR GFR 0.67 MG/DL (0.70-1.30); GLOMERULAR FILTRATION RATE > 90.0 (>49); POTASSIUM SERUM 3.5 MMOL/L (3.5-5.1); SODIUM LEVEL 115 MMOL/L (136-145)
[2025-01-04] MEDS: ACETAMINOPHEN 500 MG TAB PO PRN (21:17)
[2025-01-04 23:12] LABS: CALCIUM LEVEL 7.0 MG/DL (8.3-10.6); CARBON DIOXIDE LEVEL 23 MMOL/L (20-31); CHLORIDE LEVEL 85 MMOL/L (98-107); CREATININE FOR GFR 0.66 MG/DL (0.70-1.30); GLOMERULAR FILTRATION RATE > 90.0 (>49); POTASSIUM SERUM 3.5 MMOL/L (3.5-5.1); SODIUM LEVEL 116 MMOL/L (136-145)
[2025-01-05] VITALS (7 sets, daily range): BP systolic 107–150; BP diastolic 67–90; TEMP 97–97.7; O2SAT 95–99
[2025-01-05] MEDS: SODIUM BICARBONATE 75 MEQ in NS 0.45% 1,000 ML IV SCH (00:35)
[2025-01-05 03:15] LABS: CALCIUM LEVEL 7.3 MG/DL (8.3-10.6); CARBON DIOXIDE LEVEL 23 MMOL/L (20-31); CHLORIDE LEVEL 86 MMOL/L (98-107); CREATININE FOR GFR 0.65 MG/DL (0.70-1.30); GLOMERULAR FILTRATION RATE > 90.0 (>49); POTASSIUM SERUM 3.7 MMOL/L (3.5-5.1); SODIUM LEVEL 117 MMOL/L (136-145)
[2025-01-05 06:22] LABS: PLATELET COUNT, AUTOMATED 284 10^3/uL (150-450)
[2025-01-05 06:49] LABS: CALCIUM LEVEL 7.2 MG/DL (8.3-10.6); CARBON DIOXIDE LEVEL 25 MMOL/L (20-31); CHLORIDE LEVEL 86 MMOL/L (98-107); CREATININE FOR GFR 0.61 MG/DL (0.70-1.30); GLOMERULAR FILTRATION RATE > 90.0 (>49); POTASSIUM SERUM 3.2 MMOL/L (3.5-5.1); SODIUM LEVEL 118 MMOL/L (136-145)
[2025-01-05] MEDS: POTASSIUM CHLORIDE 10% LIQ 20MEQ/15ML UDC PO ONE (08:19)
[2025-01-05] MEDS: diazePAM 2 MG TAB PO SCH (08:19)
[2025-01-05] MEDS: KCL 20MEQ in NS 1000ML 1,000 ML IV SCH (09:17)
[2025-01-05 11:32] LABS: CALCIUM LEVEL 7.4 MG/DL (8.3-10.6); CARBON DIOXIDE LEVEL 26 MMOL/L (20-31); CHLORIDE LEVEL 87 MMOL/L (98-107); CREATININE FOR GFR 0.60 MG/DL (0.70-1.30); GLOMERULAR FILTRATION RATE > 90.0 (>49); POTASSIUM SERUM 3.7 MMOL/L (3.5-5.1); SODIUM LEVEL 118 MMOL/L (136-145)
[2025-01-05 16:16] LABS: IRON (FE) 33 UG/DL (65-175); PERCENT SATURATION 26.8 % (19.7-50.0)
[2025-01-05] MEDS ORDERED: ONDANSETRON 4MG 2ML VIAL IV PRN (16:55)
[2025-01-05 17:03] LABS: CALCIUM LEVEL 7.7 MG/DL (8.3-10.6); CARBON DIOXIDE LEVEL 24 MMOL/L (20-31); CHLORIDE LEVEL 90 MMOL/L (98-107); CREATININE FOR GFR 0.62 MG/DL (0.70-1.30); GLOMERULAR FILTRATION RATE > 90.0 (>49); POTASSIUM SERUM 4.0 MMOL/L (3.5-5.1); SODIUM LEVEL 123 MMOL/L (136-145); VITAMIN B12 LEVEL > 2000 PG/ML (211-911)
[2025-01-05] MEDS: LIDOCAINE 1% MDV 20 ML VIAL SC SCH (17:06)
[2025-01-05] MEDS: MIDAZOLAM INJ 2 MG/2 ML VIAL IV PRN (17:08)
[2025-01-05] MEDS: SODIUM CHLORIDE 0.9% 1000 ML XX SCH (18:23)
[2025-01-05] MEDS: D5W 1,000 ML IV ONE (18:55)
[2025-01-05 20:50] LABS: APPEARANCE, BODY FLUID CLOUDY (CLEAR); ASCITES FL COLOR BROWN (COLORLESS); SOURCE, BODY FLUID ASCITES
[2025-01-05 21:02] LABS: APPEARANCE, BODY FLUID HAZY (CLEAR); ASCITES FL COLOR AMBER (COLORLESS); SOURCE, BODY FLUID ASCITES
[2025-01-05 23:14] LABS: CALCIUM LEVEL 7.0 MG/DL (8.3-10.6); CARBON DIOXIDE LEVEL 22 MMOL/L (20-31); CHLORIDE LEVEL 89 MMOL/L (98-107); CREATININE FOR GFR 0.58 MG/DL (0.70-1.30); GLOMERULAR FILTRATION RATE > 90.0 (>49); POTASSIUM SERUM 3.6 MMOL/L (3.5-5.1); SODIUM LEVEL 118 MMOL/L (136-145)
[2025-01-06] VITALS (14 sets, daily range): BP systolic 115–138; BP diastolic 69–85; TEMP 97.2–98.6; O2SAT 96–100
[2025-01-06 07:28] LABS: PLATELET COUNT, AUTOMATED 272 10^3/uL (150-450)
[2025-01-06 08:05] LABS: ALT/SGPT 65 U/L (7.0-40); AST/SGOT 126 U/L (<34); CALCIUM LEVEL 7.6 MG/DL (8.3-10.6); CARBON DIOXIDE LEVEL 24 MMOL/L (20-31); CHLORIDE LEVEL 91 MMOL/L (98-107); CREATININE FOR GFR 0.54 MG/DL (0.70-1.30); GLOMERULAR FILTRATION RATE > 90.0 (>49); POTASSIUM SERUM 3.5 MMOL/L (3.5-5.1); SODIUM LEVEL 122 MMOL/L (136-145)
[2025-01-06 12:24] LABS: CALCIUM LEVEL 7.6 MG/DL (8.3-10.6); CARBON DIOXIDE LEVEL 27 MMOL/L (20-31); CHLORIDE LEVEL 90 MMOL/L (98-107); CREATININE FOR GFR 0.61 MG/DL (0.70-1.30); GLOMERULAR FILTRATION RATE > 90.0 (>49); POTASSIUM SERUM 3.2 MMOL/L (3.5-5.1); SODIUM LEVEL 121 MMOL/L (136-145)
[2025-01-06] MEDS: ISOVUE-300 61% 100 ML VIAL IV SCH (14:46)
[2025-01-06] MEDS: LIDOCAINE 1% MDV 20 ML VIAL SC SCH (14:46)
[2025-01-06] MEDS ORDERED: PILL CUTTER 1 EACH XX PRN (14:55)
[2025-01-06] MEDS: POTASSIUM CHLORIDE 10MEQ SR TABLET PO ONE ×2 (15:28→18:08)
[2025-01-06] MEDS: HEPARIN SOD 5000 UNITS/ML 1 ML VIAL/SYRINGE SQ SCH (21:28)
[2025-01-07] VITALS (7 sets, daily range): BP systolic 110–137; BP diastolic 68–80; TEMP 97.1–97.7; O2SAT 95–100
[2025-01-07 05:49] LABS: PLATELET COUNT, AUTOMATED 247 10^3/uL (150-450)
[2025-01-07 06:24] LABS: ALT/SGPT 61 U/L (7.0-40); AST/SGOT 86 U/L (<34); CALCIUM LEVEL 7.4 MG/DL (8.3-10.6); CARBON DIOXIDE LEVEL 25 MMOL/L (20-31); CHLORIDE LEVEL 94 MMOL/L (98-107); CREATININE FOR GFR 0.59 MG/DL (0.70-1.30); GLOMERULAR FILTRATION RATE > 90.0 (>49); POTASSIUM SERUM 3.5 MMOL/L (3.5-5.1); SODIUM LEVEL 126 MMOL/L (136-145)
[2025-01-07] MEDS: diazePAM 2 MG TAB PO SCH (09:04)
[2025-01-08 00:11] VITALS: BP 128/80; TEMP 97.5; O2SAT 98
[2025-01-08 03:43] VITALS: BP 134/79; TEMP 98.4; O2SAT 96
[2025-01-08 05:16] LABS: PLATELET COUNT, AUTOMATED 249 10^3/uL (150-450)
[2025-01-08 05:38] LABS: ALT/SGPT 59 U/L (7.0-40); AST/SGOT 79 U/L (<34); CALCIUM LEVEL 7.7 MG/DL (8.3-10.6); CARBON DIOXIDE LEVEL 26 MMOL/L (20-31); CHLORIDE LEVEL 97 MMOL/L (98-107); CREATININE FOR GFR 0.58 MG/DL (0.70-1.30); GLOMERULAR FILTRATION RATE > 90.0 (>49); POTASSIUM SERUM 3.2 MMOL/L (3.5-5.1); SODIUM LEVEL 131 MMOL/L (136-145)
[2025-01-08 07:39] VITALS: BP 121/76; TEMP 97.4; O2SAT 99
[2025-01-08] MEDS ORDERED: SODIUM CHLORIDE 0.9% INJ 10 ML SYR IV SCH (09:00)
[2025-01-08] MEDS: POTASSIUM CHLORIDE 10MEQ SR TABLET PO SCH (09:03)
[2025-01-08] MEDS: SODIUM CHLORIDE 0.9% INJ 10 ML SYR XX SCH (09:06)
[2025-01-08 15:51] VITALS: BP 116/75; TEMP 97.2; O2SAT 100
[2025-01-08 19:57] VITALS: BP 128/84; TEMP 97.4; O2SAT 98
[2025-01-09 03:56] VITALS: BP 137/77; TEMP 97; O2SAT 97
[2025-01-09 06:18] LABS: PLATELET COUNT, AUTOMATED 240 10^3/uL (150-450)
[2025-01-09 06:50] LABS: ALT/SGPT 49 U/L (7.0-40); AST/SGOT 56 U/L (<34); CALCIUM LEVEL 7.3 MG/DL (8.3-10.6); CARBON DIOXIDE LEVEL 25 MMOL/L (20-31); CHLORIDE LEVEL 96 MMOL/L (98-107); CREATININE FOR GFR 0.59 MG/DL (0.70-1.30); GLOMERULAR FILTRATION RATE > 90.0 (>49); POTASSIUM SERUM 3.8 MMOL/L (3.5-5.1); SODIUM LEVEL 126 MMOL/L (136-145)
[2025-01-09 07:49] VITALS: BP 153/75; TEMP 97.7; O2SAT 99
[2025-01-09] MEDS: SODIUM CHLORIDE 1 GM TAB PO SCH (09:31)
[2025-01-09 11:30] VITALS: BP 163/78; TEMP 97.9; O2SAT 99
[2025-01-09 20:12] VITALS: BP 151/84; TEMP 97.7; O2SAT 99
[2025-01-09 23:16] VITALS: BP 139/81; TEMP 97.9; O2SAT 97
[2025-01-10 04:12] VITALS: BP 129/80; TEMP 97.7; O2SAT 98
[2025-01-10 08:00] VITALS: BP 131/81; TEMP 97.9; O2SAT 99
[2025-01-10 09:17] LABS: PLATELET COUNT, AUTOMATED 244 10^3/uL (150-450)
[2025-01-10] MEDS: OMEPRAZOLE 20MG CAP PO SCH (09:43)
[2025-01-10] MEDS: amLODIPine 5 MG TAB PO SCH (09:45)
[2025-01-10 09:54] LABS: ALT/SGPT 44 U/L (7.0-40); AST/SGOT 54 U/L (<34); CALCIUM LEVEL 7.7 MG/DL (8.3-10.6); CARBON DIOXIDE LEVEL 23 MMOL/L (20-31); CHLORIDE LEVEL 98 MMOL/L (98-107); CREATININE FOR GFR 0.57 MG/DL (0.70-1.30); GLOMERULAR FILTRATION RATE > 90.0 (>49); POTASSIUM SERUM 3.5 MMOL/L (3.5-5.1); SODIUM LEVEL 132 MMOL/L (136-145)
[2025-01-10 12:00] VITALS: BP 133/82; TEMP 97.9; O2SAT 96
[2025-01-10] MEDS: GABAPENTIN 100 MG CAP PO SCH (16:44)
[2025-01-10 20:02] VITALS: BP 135/84; TEMP 98.1; O2SAT 98
[2025-01-10 20:13] VITALS: BP 128/74; TEMP 98; O2SAT 96
[2025-01-11] VITALS (7 sets, daily range): BP systolic 128–153; BP diastolic 69–98; TEMP 97.5–97.9; O2SAT 92–100
[2025-01-11 07:37] LABS: ALT/SGPT 37 U/L (7.0-40); AST/SGOT 42 U/L (<34); CALCIUM LEVEL 7.5 MG/DL (8.3-10.6); CARBON DIOXIDE LEVEL 24 MMOL/L (20-31); CHLORIDE LEVEL 100 MMOL/L (98-107); CREATININE FOR GFR 0.59 MG/DL (0.70-1.30); GLOMERULAR FILTRATION RATE > 90.0 (>49); POTASSIUM SERUM 3.0 MMOL/L (3.5-5.1); SODIUM LEVEL 133 MMOL/L (136-145)
[2025-01-11] MEDS: POTASSIUM CHLORIDE 10MEQ SR TABLET PO ONE ×2 (08:38→11:55)
[2025-01-11 10:23] LABS: MAGNESIUM LEVEL 1.6 MG/DL (1.8-2.4)
[2025-01-11] MEDS: MAG SULF 1GM/100ML (MAG RUN) 1 GM in IV 1 EA IV SCH (11:55)
[2025-01-11] MEDS ORDERED: SODIUM CHLORIDE 0.9% INJ 10 ML SYR IV PRN (16:05)
[2025-01-11] MEDS: SODIUM CHLORIDE 0.9% INJ 10 ML SYR IV SCH (16:52)
[2025-01-12 04:35] VITALS: BP 143/85; TEMP 97.7; O2SAT 98
[2025-01-12 07:10] LABS: ALT/SGPT 35 U/L (7.0-40); CALCIUM LEVEL 7.6 MG/DL (8.3-10.6); CARBON DIOXIDE LEVEL 22 MMOL/L (20-31); CHLORIDE LEVEL 99 MMOL/L (98-107); CREATININE FOR GFR 0.59 MG/DL (0.70-1.30); GLOMERULAR FILTRATION RATE > 90.0 (>49); POTASSIUM SERUM 3.4 MMOL/L (3.5-5.1); SODIUM LEVEL 130 MMOL/L (136-145)
[2025-01-12 08:01] VITALS: BP 121/78; TEMP 97.9; O2SAT 99
[2025-01-12] MEDS: POTASSIUM CHLORIDE 10MEQ SR TABLET PO SCH (08:58)
[2025-01-12 09:49] LABS: PLATELET COUNT, AUTOMATED 257 10^3/uL (150-450)
[2025-01-12 11:08] LABS: CALCIUM LEVEL 7.2 MG/DL (8.3-10.6); CARBON DIOXIDE LEVEL 25 MMOL/L (20-31); CHLORIDE LEVEL 97 MMOL/L (98-107); CREATININE FOR GFR 0.59 MG/DL (0.70-1.30); GLOMERULAR FILTRATION RATE > 90.0 (>49); POTASSIUM SERUM 3.5 MMOL/L (3.5-5.1); SODIUM LEVEL 128 MMOL/L (136-145)
[2025-01-12 11:25] VITALS: BP 118/65
[2025-01-12] MEDS: FUROSEMIDE 40 MG/4 ML VIAL IV ONE (11:25)
[2025-01-12 11:48] LABS: MAGNESIUM LEVEL 1.8 MG/DL (1.8-2.4)
[2025-01-12] MEDS ORDERED: PANT40TA29 PO (11:54)
[2025-01-12] MEDS ORDERED: FOLI1TAB11 PO (11:54)
[2025-01-12] MEDS ORDERED: POTA-136 PO (11:54)
[2025-01-12] MEDS ORDERED: SODI1TAB6 PO (11:54)
[2025-01-12] MEDS: CEFEPIME HCL 1 GM in DEXTROSE 5% (D5W) ADV/MINI-BAG 50 ML IV ONE (12:06)
[2025-01-12 12:39] VITALS: BP 145/88; TEMP 97.9; O2SAT 100
[2025-01-13 06:24] LABS: AST/SGOT 38 U/L (<34)
== END 2025-01-12 14:55 | disposition home health service (06) | DRG 871 ==
LOC: M ED 15:48 → M ED INP 22:59 → M ICU 01-04 01:00 → M PCU 01-06 04:26 → M MSPAV 01-09 11:16
PROVIDERS: ADMIT Student in an Organized Health Care Education/Training Program; ATTEND Internal Medicine
PROC: 0W9G3ZZ Drainage of Peritoneal Cavity, Percutaneous Approach (ICD-10-PCS; principal; 2025-01-04 15:00)
PROC: 0W9G30Z Drainage of Peritoneal Cavity with Drainage Device, Percutaneous Approach (ICD-10-PCS; 2025-01-05)
PROC: 0W9G30Z Drainage of Peritoneal Cavity with Drainage Device, Percutaneous Approach (ICD-10-PCS; 2025-01-06)
DX: A41.9 Sepsis, unspecified organism (principal); K65.1 Peritoneal abscess; K86.2 Cyst of pancreas; E87.20 Acidosis, unspecified; J98.11 Atelectasis; N10 Acute pyelonephritis; E87.1 Hypo-osmolality and hyponatremia; I10 Essential (primary) hypertension; K70.31 Alcoholic cirrhosis of liver with ascites; F10.20 Alcohol dependence, uncomplicated; D50.9 Iron deficiency anemia, unspecified; K76.89 Other specified diseases of liver; E78.5 Hyperlipidemia, unspecified; K21.9 Gastro-esophageal reflux disease without esophagitis; R74.01 Elevation of levels of liver transaminase levels; R60.9 Edema, unspecified; R53.1 Weakness; N40.0 Benign prostatic hyperplasia without lower urinary tract symptoms; E87.6 Hypokalemia; E16.2 Hypoglycemia, unspecified; L97.519 Non-pressure chronic ulcer of other part of right foot with unspecified severity; B96.20 Unspecified Escherichia coli [E. coli] as the cause of diseases classified elsewhere; R33.9 Retention of urine, unspecified; R53.81 Other malaise; M79.2 Neuralgia and neuritis, unspecified; R29.6 Repeated falls; R26.9 Unspecified abnormalities of gait and mobility; N31.9 Neuromuscular dysfunction of bladder, unspecified; Z99.3 Dependence on wheelchair; K64.8 Other hemorrhoids; Z79.899 Other long term (current) drug therapy; Z66 Do not resuscitate

== ENCOUNTER → 2025-01-03 | Outpatient (CLI) | payer MEDICARE ==
[2025-01-03 13:21] LABS: PLATELET COUNT, AUTOMATED 451 10^3/uL (150-450)
[2025-01-03 13:48] LABS: IRON (FE) 20 UG/DL (65-175); PERCENT SATURATION 15.3 % (19.7-50.0)
[2025-01-03 14:28] LABS: ALT/SGPT 40 U/L (7.0-40); AST/SGOT 82 U/L (<34); CALCIUM LEVEL 8.9 MG/DL (8.3-10.6); CARBON DIOXIDE LEVEL 18 MMOL/L (20-31); CHLORIDE LEVEL 78 MMOL/L (98-107); CREATININE FOR GFR 0.70 MG/DL (0.70-1.30); GLOMERULAR FILTRATION RATE > 90.0 (>49); MAGNESIUM LEVEL 1.9 MG/DL (1.8-2.4); POTASSIUM SERUM 5.1 MMOL/L (3.5-5.1); SODIUM LEVEL 110 MMOL/L (136-145)
== END ==
LOC: M PLALAB 12:08
PROVIDERS: ATTEND Nurse Practitioner Family
DX: R10.30 Lower abdominal pain, unspecified (principal); R53.1 Weakness; W19.XXXA Unspecified fall, initial encounter; M25.512 Pain in left shoulder

== ENCOUNTER → 2025-01-16 | Outpatient (REF) | payer MEDICARE ==
[~2025-01-16] MED LIST changes: +CEFE1INJ5 IV; +MED REC COMMENT; +PANT40TA29 PO; +POTA-136 PO
[2025-01-16 16:09] LABS: PLATELET COUNT, AUTOMATED 321 10^3/uL (150-450)
[2025-01-16 16:36] LABS: CALCIUM LEVEL 8.2 MG/DL (8.3-10.6); CARBON DIOXIDE LEVEL 19 MMOL/L (20-31); CHLORIDE LEVEL 97 MMOL/L (98-107); CREATININE FOR GFR 0.51 MG/DL (0.70-1.30); GLOMERULAR FILTRATION RATE > 90.0 (>49); POTASSIUM SERUM 4.6 MMOL/L (3.5-5.1); SODIUM LEVEL 125 MMOL/L (136-145)
[2025-01-16 16:47] LABS: C REACTIVE PROTEIN QUANTITATIV 22.39 MG/DL (<1.0)
== END ==
LOC: M SHH 15:38
PROVIDERS: ATTEND Internal Medicine
DX: R53.1 Weakness (principal); R10.30 Lower abdominal pain, unspecified; F10.20 Alcohol dependence, uncomplicated; K70.30 Alcoholic cirrhosis of liver without ascites; N31.2 Flaccid neuropathic bladder, not elsewhere classified

== ENCOUNTER 2025-01-17 17:24 | Inpatient (IN) | payer MEDICARE ==
[~2025-01-17] VITALS: Ht 167.6 cm; Wt 67.0 kg
[~2025-01-17 17:24] MED LIST changes: -CEFE1INJ5 IV
[2025-01-17] MEDS: HEPARIN LOCK FLUSH 100 UNITS/ML 3 ML SYRINGE IV PRN (20:14)
[2025-01-17] MEDS: SODIUM CHLORIDE 0.9% INJ 10 ML SYR IV PRN (20:14)
[2025-01-17 20:17] LABS: BASO # 0.0 10^3/uL (0.0-0.2); BASO % 0.2 % (0.0-1.0); EOS # 0.1 10^3/uL (0.0-0.5); EOS % 0.4 % (0.0-3.0); LYMPH # 0.6 10^3/uL (1.5-5.0); LYMPH % 3.2 % (24.0-44.0); MONO # 1.5 10^3/uL (0.0-0.8); MONO % 7.5 % (2.0-8.0); NEUTROPHILS # 17.1 10^3/uL (1.5-8.5); NEUTROPHILS % 87.6 % (36.0-66.0); PLATELET COUNT, AUTOMATED 244 10^3/uL (150-450)
[2025-01-17 20:22] LABS: APPEARANCE, URINE CLEAR (CLEAR); BACTERIA, URINE AUTO NEGATIVE (NEGATIVE); BILIRUBIN, URINE AUTO NEGATIVE (NEGATIVE); BLOOD, URINE BLOOD NEGATIVE (NEGATIVE); GLUCOSE, URINE (UA) AUTO NEGATIVE (NEGATIVE); KETONE, URINE AUTO NEGATIVE (NEGATIVE); LEUKOCYTE ESTERASE, URINE AUTO 1+ (NEGATIVE); MUCUS, URINE SMALL (NEGATIVE); NITRITE, URINE AUTO NEGATIVE (NEGATIVE); PROTEIN, URINE AUTO NEGATIVE (NEGATIVE); RBC, URINE AUTO 1 /HPF (0-3); SPECIFIC GRAVITY URINE AUTO 1.003 (1.002-1.035); SQUAMOUS EPITHELIAL CELL UR AU 0 /HPF (0-6); UROBILINOGEN, URINE AUTO 0.2 mg/dL (0.0-2.0); WBC, URINE AUTO 2 /HPF (0-3); YEAST LIKE CELL URINE AUTO SMALL
[2025-01-17 20:33] LABS: ALT/SGPT 34 U/L (7.0-40); AST/SGOT 87 U/L (<34); CALCIUM LEVEL 8.4 MG/DL (8.3-10.6); CARBON DIOXIDE LEVEL 18 MMOL/L (20-31); CHLORIDE LEVEL 101 MMOL/L (98-107); CREATININE FOR GFR 0.49 MG/DL (0.70-1.30); GLOMERULAR FILTRATION RATE > 90.0 (>49); POTASSIUM SERUM 4.7 MMOL/L (3.5-5.1); SODIUM LEVEL 127 MMOL/L (136-145)
[2025-01-17] MEDS ORDERED: ISOVUE-370 76% 100 ML VIAL As Ordered ONE (20:38)
[2025-01-17 20:45] LABS: C REACTIVE PROTEIN QUANTITATIV 22.05 MG/DL (<1.0)
[2025-01-17] MEDS: LevoFLOXacin IV 750 MG in IV 1 EA IV ONE (22:27)
[2025-01-17] MEDS ORDERED: CEFE1INJ5 IV (22:51)
[2025-01-18] VITALS (8 sets, daily range): BP systolic 120–134; BP diastolic 74–78; TEMP 97.3–97.7; O2SAT 95–99
[2025-01-18] MEDS: GABAPENTIN 100 MG CAP PO SCH (00:02)
[2025-01-18] MEDS: SODIUM CHLORIDE 1 GM TAB PO ONE (00:03)
[2025-01-18] MEDS: THIAMINE 100 MG TAB PO SCH (00:03)
[2025-01-18] MEDS: PIPERACILLIN/TAZOBACTAM SOD 4.5 GM in DEXTROSE 5% (D5W) ADV/MINI-BAG 50 ML IV SCH (00:10)
[2025-01-18] MEDS: LR 1,000 ML IV SCH (00:10)
[2025-01-18] MEDS: HEPARIN SOD 5000 UNITS/ML 1 ML VIAL/SYRINGE SC SCH (00:16)
[2025-01-18 02:40] LABS: INR 1.04
[2025-01-18] MEDS ORDERED: HEPARIN LOCK FLUSH 100 UNITS/ML 3 ML SYRINGE IV SCH (06:00)
[2025-01-18] MEDS ORDERED: SODIUM CHLORIDE 0.9% INJ 10 ML SYR IV SCH (06:00)
[2025-01-18 07:21] LABS: PLATELET COUNT, AUTOMATED 253 10^3/uL (150-450)
[2025-01-18 08:04] LABS: ALT/SGPT 35 U/L (7.0-40); AST/SGOT 81 U/L (<34); C REACTIVE PROTEIN QUANTITATIV 18.96 MG/DL (<1.0); CALCIUM LEVEL 8.2 MG/DL (8.3-10.6); CARBON DIOXIDE LEVEL 21 MMOL/L (20-31); CHLORIDE LEVEL 100 MMOL/L (98-107); CREATININE FOR GFR 0.49 MG/DL (0.70-1.30); GLOMERULAR FILTRATION RATE > 90.0 (>49); POTASSIUM SERUM 4.7 MMOL/L (3.5-5.1); SODIUM LEVEL 129 MMOL/L (136-145)
[2025-01-18] MEDS: OMEPRAZOLE 20MG CAP PO SCH (08:10)
[2025-01-18] MEDS: amLODIPine 5 MG TAB PO SCH (08:11)
[2025-01-18] MEDS: MULTIVITAMINS/MINERALS THERAP 1 TAB PO SCH (08:11)
[2025-01-18] MEDS: FOLIC ACID 1 MG TAB PO SCH (08:12)
[2025-01-18] MEDS: SODIUM CHLORIDE 1 GM TAB PO SCH (08:13)
[2025-01-18] MEDS: ACETAMINOPHEN 500 MG TAB PO PRN (15:51)
[2025-01-19] VITALS (10 sets, daily range): BP systolic 120–147; BP diastolic 70–95; TEMP 97.1–97.5; O2SAT 97–99
[2025-01-19 07:56] LABS: PLATELET COUNT, AUTOMATED 283 10^3/uL (150-450)
[2025-01-19 08:34] LABS: ALT/SGPT 42 U/L (7.0-40); AST/SGOT 119 U/L (<34); C REACTIVE PROTEIN QUANTITATIV 15.57 MG/DL (<1.0); CALCIUM LEVEL 7.5 MG/DL (8.3-10.6); CARBON DIOXIDE LEVEL 20 MMOL/L (20-31); CHLORIDE LEVEL 100 MMOL/L (98-107); CREATININE FOR GFR 0.54 MG/DL (0.70-1.30); GLOMERULAR FILTRATION RATE > 90.0 (>49); POTASSIUM SERUM 4.1 MMOL/L (3.5-5.1); SODIUM LEVEL 125 MMOL/L (136-145)
[2025-01-20 05:25] VITALS: BP 138/90
[2025-01-20 06:02] VITALS: BP 138/90; TEMP 97.7; O2SAT 98
[2025-01-20 07:19] LABS: PLATELET COUNT, AUTOMATED 272 10^3/uL (150-450)
[2025-01-20 07:45] LABS: ALT/SGPT 37 U/L (7.0-40); AST/SGOT 62 U/L (<34); C REACTIVE PROTEIN QUANTITATIV 10.89 MG/DL (<1.0); CALCIUM LEVEL 7.3 MG/DL (8.3-10.6); CARBON DIOXIDE LEVEL 22 MMOL/L (20-31); CHLORIDE LEVEL 101 MMOL/L (98-107); CREATININE FOR GFR 0.59 MG/DL (0.70-1.30); GLOMERULAR FILTRATION RATE > 90.0 (>49); POTASSIUM SERUM 2.9 MMOL/L (3.5-5.1); SODIUM LEVEL 131 MMOL/L (136-145)
[2025-01-20] MEDS: POTASSIUM CHLORIDE 10MEQ SR TABLET PO ONE (08:10)
[2025-01-20 09:40] LABS: MAGNESIUM LEVEL 1.4 MG/DL (1.8-2.4)
[2025-01-20 10:35] VITALS: BP 131/85; TEMP 97.5; O2SAT 97
[2025-01-20 14:15] VITALS: BP 131/84; TEMP 97.5; O2SAT 97
[2025-01-20 18:25] VITALS: BP 143/87; TEMP 97.7; O2SAT 98
[2025-01-20 19:22] VITALS: BP 139/88; TEMP 97.3; O2SAT 100
[2025-01-21 00:22] VITALS: BP 140/88; TEMP 98.8; O2SAT 98
[2025-01-21 03:58] VITALS: BP 139/87; TEMP 97.5; O2SAT 98
[2025-01-21 06:40] LABS: PLATELET COUNT, AUTOMATED 338 10^3/uL (150-450)
[2025-01-21 07:11] LABS: C REACTIVE PROTEIN QUANTITATIV 6.88 MG/DL (<1.0)
[2025-01-21 07:27] LABS: ALT/SGPT 37 U/L (7.0-40); AST/SGOT 60 U/L (<34); CALCIUM LEVEL 7.4 MG/DL (8.3-10.6); CARBON DIOXIDE LEVEL 24 MMOL/L (20-31); CHLORIDE LEVEL 100 MMOL/L (98-107); CREATININE FOR GFR 0.58 MG/DL (0.70-1.30); GLOMERULAR FILTRATION RATE > 90.0 (>49); POTASSIUM SERUM 3.1 MMOL/L (3.5-5.1); SODIUM LEVEL 133 MMOL/L (136-145)
[2025-01-21 14:00] VITALS: BP 140/89; TEMP 97.5; O2SAT 98
[2025-01-21 19:43] VITALS: BP 140/90; TEMP 97.5; O2SAT 98
[2025-01-21] MEDS: CALCIUM CARBONATE 500 MG CHEW U/D PO PRN (20:29)
[2025-01-21] MEDS: POTASSIUM CHLORIDE 10MEQ SR TABLET PO SCH (20:43)
[2025-01-21 20:44] LABS: MAGNESIUM LEVEL 1.5 MG/DL (1.8-2.4)
[2025-01-21] MEDS: MAG SULF 1GM/100ML (MAG RUN) 1 GM in IV 1 EA IV SCH (20:44)
[2025-01-21] MEDS: KCL 10MEQ/100ML SWI (KRUN) 10 MEQ in IV 1 EA IV SCH (23:05)
[2025-01-21 23:59] VITALS: BP 146/89; TEMP 97.5; O2SAT 97
[2025-01-22 03:58] VITALS: BP 146/90; TEMP 97.3; O2SAT 98
[2025-01-22 07:11] LABS: PLATELET COUNT, AUTOMATED 347 10^3/uL (150-450)
[2025-01-22 07:32] LABS: C REACTIVE PROTEIN QUANTITATIV 5.12 MG/DL (<1.0)
[2025-01-22 07:38] LABS: ALT/SGPT 38 U/L (7.0-40); AST/SGOT 55 U/L (<34); CALCIUM LEVEL 7.5 MG/DL (8.3-10.6); CARBON DIOXIDE LEVEL 23 MMOL/L (20-31); CHLORIDE LEVEL 101 MMOL/L (98-107); CREATININE FOR GFR 0.61 MG/DL (0.70-1.30); GLOMERULAR FILTRATION RATE > 90.0 (>49); POTASSIUM SERUM 3.5 MMOL/L (3.5-5.1); SODIUM LEVEL 134 MMOL/L (136-145)
[2025-01-22 11:00] VITALS: BP 142/88; TEMP 97.5; O2SAT 97
[2025-01-22] MEDS: FLUCONAZOLE 100 MG TAB PO SCH (12:13)
[2025-01-22 14:52] VITALS: BP 134/85; TEMP 97.3; O2SAT 99
[2025-01-22 18:17] VITALS: BP 132/74; TEMP 97.5; O2SAT 98
[2025-01-22 21:02] VITALS: BP 136/90; TEMP 97.8; O2SAT 97
[2025-01-22 23:21] VITALS: BP_SYST 134; BP_SYST 90; BP_DIAS 90; TEMP 98.1; O2SAT 95
[2025-01-23 05:54] VITALS: BP 137/93; TEMP 97.5; O2SAT 96
[2025-01-23 06:35] LABS: PLATELET COUNT, AUTOMATED 390 10^3/uL (150-450)
[2025-01-23 07:01] LABS: C REACTIVE PROTEIN QUANTITATIV 4.73 MG/DL (<1.0)
[2025-01-23 07:10] LABS: ALT/SGPT 32 U/L (7.0-40); AST/SGOT 46 U/L (<34); CALCIUM LEVEL 7.5 MG/DL (8.3-10.6); CARBON DIOXIDE LEVEL 24 MMOL/L (20-31); CHLORIDE LEVEL 100 MMOL/L (98-107); CREATININE FOR GFR 0.60 MG/DL (0.70-1.30); GLOMERULAR FILTRATION RATE > 90.0 (>49); POTASSIUM SERUM 3.4 MMOL/L (3.5-5.1); SODIUM LEVEL 133 MMOL/L (136-145)
[2025-01-23 10:00] VITALS: BP 138/90; TEMP 97.5; O2SAT 96
[2025-01-23 14:00] VITALS: BP 135/89; TEMP 97.3; O2SAT 100
[2025-01-23 20:46] VITALS: BP 138/92; TEMP 97.5; O2SAT 98
[2025-01-23 23:25] VITALS: BP 140/89; TEMP 97.3; O2SAT 97
[2025-01-24 06:23] LABS: PLATELET COUNT, AUTOMATED 404 10^3/uL (150-450)
[2025-01-24 06:46] LABS: C REACTIVE PROTEIN QUANTITATIV 4.76 MG/DL (<1.0)
[2025-01-24 06:48] LABS: ALT/SGPT 29 U/L (7.0-40); AST/SGOT 35 U/L (<34); CALCIUM LEVEL 7.4 MG/DL (8.3-10.6); CARBON DIOXIDE LEVEL 23 MMOL/L (20-31); CHLORIDE LEVEL 101 MMOL/L (98-107); CREATININE FOR GFR 0.56 MG/DL (0.70-1.30); GLOMERULAR FILTRATION RATE > 90.0 (>49); POTASSIUM SERUM 3.1 MMOL/L (3.5-5.1); SODIUM LEVEL 135 MMOL/L (136-145)
[2025-01-24 07:09] VITALS: BP 138/90; TEMP 97.5; O2SAT 96
[2025-01-24 10:00] VITALS: BP 139/92; TEMP 97.7; O2SAT 99
[2025-01-24] MEDS: POTASSIUM CHLORIDE 10MEQ SR TABLET PO ONE ×2 (11:08→17:40)
[2025-01-24 12:51] LABS: MAGNESIUM LEVEL 1.7 MG/DL (1.8-2.4)
[2025-01-24 14:00] VITALS: BP 156/100; TEMP 97.5; O2SAT 99
[2025-01-24] MEDS: MAG SULF 1GM/100ML (MAG RUN) 1 GM in IV 1 EA IV SCH (16:32)
[2025-01-24 18:00] VITALS: BP 149/96; TEMP 97.5; O2SAT 98
[2025-01-24 21:01] VITALS: BP 147/95; TEMP 97.7; O2SAT 95
[2025-01-25 00:35] VITALS: BP 136/91; TEMP 97.7; O2SAT 96
[2025-01-25 05:15] VITALS: BP 139/92; TEMP 97.9; O2SAT 97
[2025-01-25] MEDS: SPIRONOLACTONE 50 MG TAB PO SCH (09:24)
[2025-01-25 10:00] VITALS: BP 139/91; TEMP 97.7; O2SAT 100
[2025-01-25 14:00] VITALS: BP 136/93; TEMP 97.5; O2SAT 99
[2025-01-25 14:11] LABS: BASO # 0.1 10^3/uL (0.0-0.2); BASO % 0.5 % (0.0-1.0); EOS # 0.4 10^3/uL (0.0-0.5); EOS % 1.6 % (0.0-3.0); LYMPH # 2.2 10^3/uL (1.5-5.0); LYMPH % 8.6 % (24.0-44.0); MONO # 1.7 10^3/uL (0.0-0.8); MONO % 6.8 % (2.0-8.0); NEUTROPHILS # 20.1 10^3/uL (1.5-8.5); NEUTROPHILS % 78.6 % (36.0-66.0); PLATELET COUNT, AUTOMATED 545 10^3/uL (150-450)
[2025-01-25 14:35] LABS: CALCIUM LEVEL 7.9 MG/DL (8.3-10.6); CARBON DIOXIDE LEVEL 20 MMOL/L (20-31); CHLORIDE LEVEL 99 MMOL/L (98-107); CREATININE FOR GFR 0.56 MG/DL (0.70-1.30); GLOMERULAR FILTRATION RATE > 90.0 (>49); MAGNESIUM LEVEL 2.0 MG/DL (1.8-2.4); POTASSIUM SERUM 4.2 MMOL/L (3.5-5.1); SODIUM LEVEL 130 MMOL/L (136-145)
[2025-01-25 18:00] VITALS: BP 140/95; TEMP 97.5; O2SAT 97
[2025-01-25 21:03] VITALS: BP 141/95; TEMP 97.6; O2SAT 97
[2025-01-26 00:05] VITALS: BP 138/93; TEMP 97.3; O2SAT 98
[2025-01-26 06:20] VITALS: BP 147/98; TEMP 97.7; O2SAT 97
[2025-01-26 06:53] LABS: BASO # 0.1 10^3/uL (0.0-0.2); BASO % 0.4 % (0.0-1.0); EOS # 0.5 10^3/uL (0.0-0.5); EOS % 1.7 % (0.0-3.0); LYMPH # 1.5 10^3/uL (1.5-5.0); LYMPH % 5.6 % (24.0-44.0); MONO # 1.8 10^3/uL (0.0-0.8); MONO % 6.8 % (2.0-8.0); NEUTROPHILS # 22.4 10^3/uL (1.5-8.5); NEUTROPHILS % 82.9 % (36.0-66.0); PLATELET COUNT, AUTOMATED 502 10^3/uL (150-450)
[2025-01-26 07:21] LABS: CALCIUM LEVEL 7.9 MG/DL (8.3-10.6); CARBON DIOXIDE LEVEL 22 MMOL/L (20-31); CHLORIDE LEVEL 98 MMOL/L (98-107); CREATININE FOR GFR 0.50 MG/DL (0.70-1.30); GLOMERULAR FILTRATION RATE > 90.0 (>49); POTASSIUM SERUM 4.0 MMOL/L (3.5-5.1); SODIUM LEVEL 131 MMOL/L (136-145)
[2025-01-26] MEDS ORDERED: FIDAXOMICIN 200 MG TAB PO SCH (09:00)
[2025-01-26] MEDS: SPIRONOLACTONE 50 MG TAB PO SCH (09:28)
[2025-01-26 09:29] VITALS: BP 143/98
[2025-01-26 10:50] VITALS: BP 145/97; TEMP 97.7; O2SAT 99
[2025-01-26] MEDS: FUROSEMIDE 40 MG/4 ML VIAL IV SCH (11:58)
[2025-01-26] MEDS: LIDOCAINE 5% PATCH TD SCH (11:59)
[2025-01-26] MEDS ORDERED: ACETAMINOPHEN 325 MG TAB PO PRN (16:50)
[2025-01-26] MEDS ORDERED: BISACODYL 10 MG SUPP PR PRN (16:50)
[2025-01-26] MEDS ORDERED: ONDANSETRON 4MG 2ML VIAL IV PRN (16:50)
[2025-01-26] MEDS ORDERED: FLEET ENEMA PR PRN (16:50)
[2025-01-26] MEDS ORDERED: ACETAMINOPHEN 650 MG SUPP PR PRN (16:50)
[2025-01-26] MEDS ORDERED: MORPHINE 4 MG/ML 1 ML VIAL IV PRN (16:50)
[2025-01-26] MEDS: LORazepam 1 MG TAB PO PRN (20:31)
[2025-01-27] MEDS: ONDANSETRON 4MG ORAL DISINTEGRATING TAB PO PRN (20:09)
[2025-01-27] MEDS: ONDANSETRON 4MG ORAL DISINTEGRATING TAB PO ONE (23:23)
[2025-01-28] MEDS: SCOPOLAMINE 1MG TRANSDERMAL PATCH TOP PRN (07:39)
[2025-01-28] MEDS: CALCIUM CARBONATE 500 MG CHEW U/D PO PRN (08:09)
[2025-01-28] MEDS ORDERED: LOPERAMIDE 2 MG CAPLET PO PRN (11:05)
[2025-01-28] MEDS ORDERED: NYSTATIN 100,000 UNITS/GM TOPICAL PWD 15 GM TOP PRN (11:05)
[2025-01-28] MEDS: MORPHINE 10 MG/0.5 ML ORAL CONCENTRATE SOLUTION U/D SL PRN (20:17)
[2025-01-28] MEDS: HYOSCYAMINE SULFATE 0.125 MG SUBL TABLET PO PRN (20:18)
[2025-01-30] MEDS: MORPHINE 10 MG/0.5 ML ORAL CONCENTRATE SOLUTION U/D SL SCH (14:41)
[2025-02-02] MEDS: ATROPINE SULFATE 1% OPHTH SOLN 2 ML BTL SL PRN (05:26)
[2025-02-02] MEDS ORDERED: ATIV1TAB10 PO (10:02)
[2025-02-02] MEDS ORDERED: MORP1SOL5 PO (10:02)
[2025-02-02] MEDS ORDERED: HYOS125TA PO (10:02)
== END 2025-02-02 10:35 | disposition hospice, inpatient (51) | DRG 872 ==
LOC: EDBD 17:24 → M ED 17:24 → M ED INP 23:43 → M MS5PR 01-18 02:29
PROVIDERS: ADMIT Student in an Organized Health Care Education/Training Program; ATTEND Internal Medicine
DX: A41.9 Sepsis, unspecified organism (principal); E87.20 Acidosis, unspecified; J98.11 Atelectasis; E87.1 Hypo-osmolality and hyponatremia; K70.31 Alcoholic cirrhosis of liver with ascites; I10 Essential (primary) hypertension; K76.89 Other specified diseases of liver; D64.9 Anemia, unspecified; E78.5 Hyperlipidemia, unspecified; K86.9 Disease of pancreas, unspecified; R53.1 Weakness; K21.9 Gastro-esophageal reflux disease without esophagitis; R19.7 Diarrhea, unspecified; G89.29 Other chronic pain; R29.6 Repeated falls; R26.81 Unsteadiness on feet; E87.70 Fluid overload, unspecified; R60.1 Generalized edema; E88.09 Other disorders of plasma-protein metabolism, not elsewhere classified; E87.6 Hypokalemia; F10.10 Alcohol abuse, uncomplicated; K76.0 Fatty (change of) liver, not elsewhere classified; K64.8 Other hemorrhoids; N40.0 Benign prostatic hyperplasia without lower urinary tract symptoms; Z66 Do not resuscitate; Z79.899 Other long term (current) drug therapy